=== PATIENT | female | born 1955 | race African-American/Black ===

== ENCOUNTER 2020-06-08 06:53 | Outpatient (NON) | payer OTHER, SELFPAY ==
[2020-06-10 13:28] LABS: SARS-CoV-2 RNA PCR Negative
== END 2020-06-08 06:54 ==
LOC: ANHCOVIDDT 06:57
PROVIDERS: PCP Family Medicine; Visit Provider Nurse Practitioner Family
DX: Z20.828 Contact with and (suspected) exposure to other viral communicable diseases (principal)
CPT/HCPCS: 87635; C9803; U0003

== ENCOUNTER → 2020-09-16 06:55 | Outpatient (CLI) | payer MEDICARE, OTHER, SELFPAY ==
[2020-09-16 20:43] LABS: SARS-CoV-2 RNA PCR Negative
== END ==
PROVIDERS: PCP Family Medicine; Visit Provider Nurse Practitioner Family
DX: Z20.822 Contact with and (suspected) exposure to COVID-19 (principal); R68.89 Other general symptoms and signs
CPT/HCPCS: C9803; U0003; U0005

== ENCOUNTER 2021-02-26 16:20 | Inpatient (IN) | payer MEDICARE, SELFPAY ==
[2021-02-26] VITALS (13 sets, daily range): BP systolic 158–217; BP diastolic 82–98; PULSE 70–99; RESP 11–20; TEMP 36.8–37.2; O2SAT 97–100; BMI 22.2
--- NOTE | ~2021-02-26 | CT_ITS ---
EXAMINATION: CT brain wo con DATE: 02/28/2021 11:19 INDICATION: Right facial droop. Hypertension. TECHNIQUE: Computed tomography (CT) of the head was performed without intravenous contrast. The dose- length product was 529.67 mGy-cm. Automated exposure control and iterative reconstruction technique w ere employed. COMPARISON: None FINDINGS: No acute intracranial hemorrhage, infarction, mass or mass effect. No ventriculomegaly or m idline shift. Basilar cisterns are patent. There is intracranial atherosclerosis. Paranasal sinuses a nd mastoids are pneumatized. Mild atrophy. There are scattered mild periventricular and subcortical w chris matter changes, most likely related to small vessel ischemic disease (microangiopathy). IMPRESSION: 1. No acute intracranial abnormality. As per stroke protocol, I called these results to emergency room, discussed with Rupali, the patient's n anthonye tech, at 02/28/2021 11:23 CDT. Reviewed, dictated and finalized at location A. IMPRESSION: 1. No acute intracranial abnormality. As per stroke protocol, I called these results to emergency room, discussed wit catarino Zapien, the patient's nurse tech, at 02/28/2021 11:23 CDT.
--- NOTE | ~2021-02-26 | MR_ITS ---
EXAMINATION: MR brain/brain stem wo con DATE: 02/28/2021 15:13 INDICATION: Stroke. Slurred speech. TECHNIQUE: Magnetic resonance imaging (MRI) of the brain and brainstem was performed without intraven ous contrast. Sequences included sagittal and axial T1-weighted FSE, axial diffusion-weighted FS EPI, axial T2*-weighted GRE, axial T2-weighted FLAIR Propeller, and axial T2-weighted Propeller. Apparent diffusion coefficient (ADC) maps were created. COMPARISON: Head CT 02/28/2021 FINDINGS: There are scattered small acute infarcts in the right frontal lobe and right frontoparietal region. There is no intracranial hemorrhage or abnormal mass lesion. There are scattered areas of no nspecific increased T2-weighted signal intensity in the cerebral white matter. The ventricles are nor mal in size. The paranasal sinuses are clear. The orbits are normal. The mastoid air cells are normal . There is a possible 5 mm aneurysm of the basilar artery. IMPRESSION: 1. Acute infarcts in the right frontal lobe and right frontoparietal region. 2. Mild nonspecific cerebral white matter disease, which likely represents chronic small vessel ische rajendra disease. 3. 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 Head CTA is recommended. Reviewed, dictated and finalized at location A. IMPRESSION: 1. Acute infarcts in the right frontal lobe and right frontoparietal region. 2. 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 3. 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 Head CTA is recommend ed.
--- NOTE | ~2021-02-26 | US_ITS ---
US renal BI 02/27/2021 09:11 Procedure: Realtime transabdominal ultrasound of the kidneys and bladder. Indication: Worsening renal function Comparison: 02/12/2019 Findings: Renal echotexture is normal bilaterally without hydronephrosis, contour deforming mass or r enal calculus. The right kidney measures 8.9 cm and left kidney measures 7.9 cm. There are bilateral renal cysts, largest measuring 1 cm in both kidneys. The kidneys are echogenic. No hydronephrosis. Bl adder within normal limits. Impression: 1: Small bilateral renal cysts measuring 1 cm or less. 2: Mildly echogenic renal cortical echotexture, consistent with chronic renal disease. Reviewed, dictated and finalized at location A. Impression: 1: Small bilateral renal cysts measuring 1 cm or less. 2: Mildly echogenic renal cortical echotexture, consistent with chronic renal d isease.
--- NOTE | ~2021-02-26 | XR_ITS ---
XR fl guide central line place 02/27/2021 11:22 Indication: Dura flow catheter placement Procedure: Single fluoroscopic image. 253 seconds of fluoroscopy. Comparison: No prior studies for comparison. Findings: There is a large bore central venous catheter partially visualized entering the thorax from the right internal jugular approach. Distal tip not visualized. Impression: 1: Status post recent internal jugular central venous catheter placement. Reviewed, dictated and finalized at location A. Impression: 1: Status post recent internal jugular central venous catheter placement.
--- NOTE | ~2021-02-26 | MR_ITS ---
EXAMINATION: MRA brain wo con DATE: 03/02/2021 13:00 INDICATION: Cerebral aneurysm. TECHNIQUE: Magnetic resonance angiography (MRA) of the brain was performed without intravenous contra st with T1-weighted SPGR by the 3D [id number] technique. Maximum intensity projection 3D-reconstr uctions were obtained. COMPARISON: Brain MRI 02/28/2021 FINDINGS: The vertebral arteries are codominant. There is no significant stenosis of basilar artery or the post erior cerebral arteries. 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 There is no significant stenosis of the intracranial inter nal carotid arteries or anterior or middle cerebral arteries. Anterior communicating artery is normal . IMPRESSION: 1. 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 Reviewed, dictated and finalized at location A. IMPRESSION: 1. 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
--- NOTE | ~2021-02-26 | XR_ITS ---
XR chest port-a-cath/central 02/27/2021 11:45 Indication: Duraflow catheter placement Procedure: AP portable chest Comparison: 02/26/2021 Findings: Right internal jugular Duraflow catheter, tip in the condyle aspect of the SVC. Cardiomegal y. Left basilar atelectasis. No focal pneumonia, pleural effusion or pneumothorax. No edema. Impression: 1: Left basilar atelectasis. 2: Cardiomegaly. Reviewed, dictated and finalized at location A. Impression: 1: Left basilar atelectasis. 2: Cardiomegaly.
--- NOTE | ~2021-02-26 | XR_ITS ---
EXAMINATION: XR chest 2V DATE: 02/26/2021 18:48 INDICATION: Weakness. Hypertension. TECHNIQUE: Frontal and lateral views of the chest were obtained. COMPARISON: Chest 2 views 09/06/2016 FINDINGS: There is no pneumonia, pleural effusion, or pneumothorax. Cardiomegaly is noted. IMPRESSION: 1. Worsened cardiomegaly. Reviewed, dictated and finalized at location A. IMPRESSION: 1. Worsened cardiomegaly.
--- NOTE | ~2021-02-26 | US_ITS ---
EXAMINATION: US carotid duplex BI DATE: 02/28/2021 15:24 INDICATION: Speech deficit. TECHNIQUE: Grayscale, color Doppler, and pulsed Doppler images of the cervical carotid arteries were obtained. The degree of vessel stenosis is placed in one of the following categories: normal, <50%, 5 0-69%, >=70% but less than near-occlusion, near-occlusion, or total occlusion. Note that percent sten osis relative to normal distal artery lumen diameter is indirectly measured from velocity measurement s as described by Juan Daniel, et al. Radiology 2003; 229:340-346. COMPARISON: None. FINDINGS: RIGHT: The right common carotid artery (CCA) peak systolic velocity (PSV) is 90 cm/s. The right internal car otid artery (ICA) PSV is 112 cm/s. The right ICA end-diastolic velocity (EDV) is 19 cm/s. The right I CA/CCA PSV ratio is 1.2. Grayscale and color Doppler images yield an estimate of <50% diameter reduct ion from plaque in the ICA. There is antegrade flow in the right vertebral artery. LEFT: The left CCA PSV is 79 cm/s. The left ICA PSV is 97 cm/s. The left ICA EDV is 17 cm/s. The left ICA/C CA PSV ratio is 1.2. Grayscale and color Doppler images yield an estimate of <50% diameter reduction from plaque in the ICA. There is antegrade flow in the left vertebral artery. IMPRESSION: 1. <50% stenosis in the right internal carotid artery. 2. <50% stenosis in the left internal carotid artery. Reviewed, dictated and finalized at location A.
[2021-02-26 17:27] LABS: Basophils Percent Auto 0.7 % (0.2-1.2); Eosinophils Absolute Auto 0.1 K/mm3 (0-0.3); Eosinophils Percent Auto 2.9 % (0-4.4); Immature Granulocyte Absolute 0.01 K/mm3 (0.00-0.031); Immature Granulocyte Percent A 0.2 % (0-0.5); Lymphocytes Percent Auto 31.2 % (18.3-44.2); Mean Corpuscular HGB Conc 31.9 g/dl (32-36); Mean Corpuscular Hemoglobin 26.6 pg (26-34); Mean Corpuscular Volume 83.3 fl (80-100); Mean Platelet Volume 9.7 fl (7.4-10.4); Monocytes Absolute Auto 0.6 K/mm3 (0.1-0.6); Monocytes Percent Auto 12.7 % (2.6-8.5); Neutrophils Absolute Auto 2.4 K/mm3 (1.3-6.7); Neutrophils Percent Auto 52.3 % (45.5-73.1); Platelet Count Result 202 k/mm3 (150-375); Red Blood Count 2.52 M/mm3 (4.2-5.4); Red Cell Distribution Width 15.4 % (11.5-14.5); White Blood Count 4.5 K/mm3 (4.5-10.0)
[2021-02-26 17:34] LABS: Hemoglobin 6.7 g/dL (12.0-15.0)
[2021-02-26 17:37] LABS: INR 0.9; Prothrombin Time 12.4 Seconds (11.1-14.7)
[2021-02-26 17:38] LABS: Partial Thromboplastin Time 27.3 SECONDS (22.3-36.8)
[2021-02-26 17:43] LABS: Anion Gap 15 mmol/L (8-16); Blood Urea Nitrogen 92 mg/dL (7-17); Calcium 8.6 mg/dL (8.4-10.2); Carbon Dioxide 19 mmol/L (22-30); Chloride 105 mmol/L (98-107); Estimated CRCL calculation 3 ml/min; Estimated Glomerular Filt Rate 4; Glucose 92 mg/dL (65-110); Potassium 4.5 mmol/L (3.4-5.0); Sodium 139 mmol/L (137-145)
[2021-02-26 17:43] LABS: Add Urine Microscopic? YES; Appearance Urine Clear (Clear); Bilirubin Urine Negative (Negative); Blood Urine Negative (Negative); Color Urine Yellow (Yellow); Glucose Urine UA Negative (Negative); Ketones Urine Negative (Negative); Leukocyte Esterase Ur Negative LEU/UL (Negative); Mucus Urine Rare /lpf; Nitrate Urine Negative (Negative); Protein Urine 2+ mg/dL (Negative); RBC Urine 0-2 /hpf (0-2); Specific Grav Ur 1.013 (1.001-1.035); Squamous Epithelial Cell Urine Rare /hpf (Few); Urobilinogen Urine Negative mg/dL (<2.0); WBC Urine 0-3 /hpf
[2021-02-26 17:44] LABS: Alanine Aminotransferase 16 U/L (4-35); Albumin Level 4.4 g/dL (3.5-5.1); Alkaline Phosphatase 64 U/L (38-126); Aspartate Amino Transferase 27 U/L (14-36); Bilirubin,Total 0.4 mg/dL (0.2-1.3)
--- NOTE | 2021-02-26 18:41 | ED.RECABL ---
HPI - Recheck/Abnormal Lab/Rx General Chief Complaint: Recheck/Abnormal Lab/Rx Stated Complaint: abnormal labs Time Seen by Provider: 02/26/21 18:28 Source: patient, RN notes reviewed and old records reviewed Mode of arrival: ambulatory Limitations: no limitations History of Present Illness HPI narrative: This is a 65 year old female with history of anemia, chronic kidney disease who presents for evaluation of generalized weakness for 2 weeks. She has no energy so she was seen by primary care physician. Outpatient labs were draw 1 week ago , and she was called today with abnormal kidney function and hemoglobin. She reports intermittent nausea and vomiting but she denies abdominal pain, melena and diarrhea. She also denies chest pain, shortness of breath or fever. She reports bilateral leg swelling that has been present for 1 week. Her creatinine was 10 on her labs from 02/20/21. She states she was seen by DR. Drew last year for evaluation of her kidneys. She states she was told her kidneys were fine. She has frequent urination and she states she is urinating large amounts. Related Data Home Medications Medication Instructions Recorded Confirmed acetaminophen 650 mg PO Q4-6H PRN 02/26/21 02/26/21 albuterol sulfate [Ventolin HFA] 2 inhalation INHALATION Q4H PRN 02/26/21 02/26/21 amlodipine 10 mg PO HS 02/26/21 02/26/21 clonidine HCl 0.1 mg PO BID 02/26/21 02/26/21 fexofenadine [Viridiana Allergy] 180 mg PO HS 02/26/21 02/26/21 levothyroxine [Euthyrox] 125 mcg PO DAILY 02/26/21 02/26/21 trazodone 50 mg PO HS PRN 02/26/21 02/26/21 triamterene-hydrochlorothiazid See Rx Instructions .ROUTE .COMPLEX 02/26/21 02/26/21 Allergies Allergy/AdvReac Type Severity Reaction Status Date / Time No Known Allergies Allergy Verified 02/26/21 22:47 Review of Systems Review of Systems: All systems reviewed & are unremarkable except as noted in HPI and below PMFSH Past Medical History Medical History (Updated 02/27/21 @ 00:33 by Steph Longoria MD) CKD (chronic kidney disease) stage 5, GFR less than 15 ml/min Essential (primary) hypertension History of intestinal obstruction 2005, 2015 Hx of gastric ulcer (~2015) Hypothyroid Suspected COVID-19 virus infection Surgical History Surgical History (Updated 05/21/20 @ 16:47 by Georgia Lagunas NP) History of cholecystectomy (~1985) History of hysterectomy (~1978) Hx of removal of ovary (~2000) Family History Family History (Updated 02/26/21 @ 23:49 by Leighann Márquez RN) Mother Family history of coronary artery disease Hypertension Father Family history of malignant neoplasm of stomach Hypertension Sibling Diabetes mellitus Hypertension Social History Social History Smoking packs per day: 0.5 Smoking cigarettes per day: 10.0 Years smoked: 41 Smoking pack-years: 20.50 Smoking status: Current every day smoker Tobacco type: cigarettes Second hand tobacco smoke exposure: Yes Alcohol intake: current Drinks per week: 1 Substance use: former Substance use type: marijuana Last use: 40 years Spiritual care concerns: Yes ([employer]) Exam Const: General: alert Nutritional Appearance: thin Orientation/consciousness: patient oriented x3 Eyes: EOM: EOMs intact bilaterally Resp: Effort & Inspection: normal respiratory effort and no retractions Auscultation: clear to auscultation bilaterally Cardio: Rate: regular rate Rhythm: regular rhythm Heart sounds: no murmurs GI: GI Palp: Yes Soft to palpation, No Tenderness to palpation present (GI) and No Guarding due to palpation present (GI) Auscultation: normal bowel sounds Other: guaic negative stool Skin: General skin exam: normal color Rashes: no rashes Neuro: General: patient oriented x3 and moves all extremities Extrem: General: edema bilateral (pedal and lower leg) Psych: Mental Status: mental stat
--- NOTE | 2021-02-26 18:44 | PC.NURSE ---
pt to X-ray at this time.
--- NOTE | 2021-02-26 18:49 | ECG_ITS ---
Measurements Intervals [place] Rate: 75 P: 59 NC: 193 QRS: -14 QRSD: 86 T: 31 QT: 405 QTc: 454 Interpretive Statements SINUS RHYTHM POSSIBLE LEFT ATRIAL ENLARGEMENT ANTEROSEPTAL INFARCT, AGE INDETERMINATE ABNORMAL ECG Electronically Signed On 02-26-2021 21:45:18 CDT by Leeroy Nolan D.O.
[2021-02-26] MEDS: amLODIPine BESYLATE 5 MG TABLET 10 MG PO (19:39)
[2021-02-26] MEDS: cloNIDine HCL 0.1 MG TABLET PO (19:39)
[2021-02-26] MEDS: SODIUM CHLORIDE 0.9% IV 250 ML 30 ML IV CONT (21:01)
[2021-02-26 21:36] LABS: Folic Acid 16.2 ng/mL (2.76->20)
[2021-02-26] MEDS: TUBING, BLOOD PLUM PUMP TUBING 1 EACH XX (21:37)
[2021-02-26 21:53] LABS: Iron 88 ug/dL (37-170)
[2021-02-26 21:59] LABS: Percent Iron Saturation 29 % (20-50)
--- NOTE | 2021-02-26 22:34 | ADMGEN ---
This patient, Madison Santos, was admitted to IMU Room 200-01 on 02/26/21 at 2233. Patient/family oriented to hospital policies and general routines including ID bracelet, bed and alarms, visiting hours, pain management, procedures, bathroom and other care routines, personal items, smoking policy, room service/diet, and visiting hours. Information on how to activate the Rapid Response Team has been discussed. Patient/Family are encouraged to report perceived risks to care and to ask questions if they do not understand what they are told or what they should do.
--- NOTE | 2021-02-26 22:53 | PM.IMHP ---
H&P: HPI History of Present Illness Date/Time: 02/26/21 22:53 Chief Complaint: Normal lab values Narrative: This is a 65-year-old female with past medical history significant for chronic kidney disease, hypertension, tobacco dependence. Patient presented to the emergency room after she was asked by her primary care physician due to abnormal lab values. She had been in to see her primary care physician due to worsening bilateral lower extremity edema and lab work was ordered a came back with a creatinine of 12 also a CBC showed a hemoglobin of 6.8. Of the time of my visit patient denied any discomfort stated that what bothers her the most was the swelling of her legs but other than that she denied any chest pain shortness of breath, PND, orthopnea, cough sputum production ,abdominal pain, nausea, vomiting, diarrhea, no fevers no rigors no chills no pain or burning with urination. Upon arrival to emergency room patient was found to be hypertension with systolic blood pressure of 200 patient states that she takes her blood pressure medications every day. Decision has been made to admit the patient for dialysis treatment. Review of Systems Review of Systems: Abnormal lab value and bilateral lower extremity swelling Constitutional: Constitutional: Denies fatigue, Denies fever(s) and Denies weakness Eyes: Eyes: Denies change in vision ENT: Denies dysphagia, Denies nasal congestion, Denies nasal discharge, Denies nasal obstruction and Denies odynophagia Cardiovascular: Cardiovascular: Denies chest pain, Denies irregular heart rhythm, Denies radiating jaw, neck or arm pain, Denies palpitations, Denies dyspnea and Denies orthopnea Respiratory: Respiratory: Denies cough and Denies dyspnea Gastrointestinal: Gastrointestinal: Denies abdominal pain, Denies diarrhea, Denies nausea and Denies vomiting Genitourinary: Genitourinary: Denies dysuria Musculoskeletal: Musculoskeletal: Reports other (Bilateral lower extremity swelling) Integumentary/Breasts: Skin/Breast: Denies rash Neurologic: Denies focal weakness and Denies Sensory deficit (Neuro) Psychiatric: Psychiatric: Denies no additional psychiatric complaints Endocrine: Endocrine: Denies no additional endocrine complaints Hematologic/Lymphatic: Hematologic/Lymphatic: Denies no additional hematologic/lymphatic complaints Allergic/Immunologic: Allergic/Immunologic: Denies no additional allergic/immunologic complaints [facility] Past Medical History Medical History (Updated 02/26/21 @ 23:08 by Flo Alberto MD) CKD (chronic kidney disease) stage 5, GFR less than 15 ml/min Essential (primary) hypertension History of intestinal obstruction 2005, 2015 Hx of gastric ulcer (~2015) Hypothyroid Suspected COVID-19 virus infection Surgical History Surgical History (Updated 05/21/20 @ 16:47 by Georgia Lagunas NP) History of cholecystectomy (~1985) History of hysterectomy (~1978) Hx of removal of ovary (~2000) Family History Family History Mother Family history of coronary artery disease Father Family history of malignant neoplasm of stomach Other Hypertension Social History Social History Smoking packs per day: 0.5 Smoking cigarettes per day: 10.0 Years smoked: 41 Smoking pack-years: 20.50 Smoking status: Current every day smoker Tobacco type: cigarettes Second hand tobacco smoke exposure: Yes Alcohol intake: current Meds Home Medications and Allergies Home Medications Medication Instructions Recorded Confirmed Type losartan 50 mg tablet 50 mg PO DAILY #90 tablet 02/19/21 02/26/21 Rx acetaminophen 650 mg PO Q4-6H PRN 02/26/21 02/26/21 History albuterol sulfate [Ventolin HFA] 2 inhalation INHALATION Q4H PRN 02/26/21 02/26/21 History amlodipine 10 mg PO HS 02/26/21 02/26/21 History clonidine HCl 0.1 mg PO BID 02/26/21 02/26/21 History
[2021-02-27] VITALS (26 sets, daily range): BP systolic 138–196; BP diastolic 70–109; PULSE 65–107; RESP 12–21; TEMP 14–37.2; O2SAT 97–100
--- NOTE | 2021-02-27 | ECHO_ITS ---
Patient Info Name: Madison Santos Age: 65 years : 1955 Gender: Female Ht: 62 in Wt: 130 lbs BSA: 1.62 m2 HR: 72 bpm BP: 188 / 76 mmHg Technical Quality: Good Exam Date: 02/27/2021 7:43 AM Exam Location: [facility] Patient Status: Inpatient Admit Date: 02/26/2021 Staff Ordering Physician: Flo Alberto MD Chief Analytics Officer: Karlene Carrillo RDCS Attending Provider: Tran Donohue PA-C Referring Physician: Dolly DIEZ; Exam Type: CA echo doppler color flow Study Info Complete two-dimensional, color flow and Doppler transthoracic echocardiogram is performed. Summary 1. Complete two-dimensional, color flow and Doppler transthoracic echocardiogram is performed. 2. Left ventricular chamber dimension is normal. 3. Ventricular septum is sigmoid shaped. No LVOT obstruction. 4. Left ventricular systolic function is normal, estimated at 60-65%. 5. There is moderately increased left ventricular wall thickness. 6. The left ventricular diastolic function is grade II diastolic dysfunction. 7. E/e' 18 is elevated. 8. Left atrial chamber dimension is moderately enlarged. 9. There is mild to moderate mitral valve regurgitation. 10. There is trace tricuspid valve regurgitation. 11. No pulmonary hypertension, estimated pulmonary arterial systolic pressure is 26 mmHg. 12. There is trace pulmonic regurgitation. 13. There is small circumferential pericardial effusion. No cardiac tamponade. Left Ventricle E/e' 18 is elevated. Ventricular septum is sigmoid shaped. No LVOT obstruction. Left ventricular chamber dimension is normal. Left ventricular systolic function is normal, estimated at 60-65%. There is moderately increased left ventricular wall thickness. The left ventricular diastolic function is grade II diastolic dysfunction. Right Ventricle Right ventricular systolic function is normal and with normal TAPSE 2.5 cm. Right ventricular chamber dimension is normal. Left Atria Left atrial chamber dimension is moderately enlarged. Right Atria Right atrial chamber dimension is normal. Aortic Valve The aortic valve is trileaflet. There is no aortic valve stenosis. There is no aortic valve regurgitation. Pulmonic Valve There is trace pulmonic regurgitation. Mitral Valve There is no mitral valve stenosis. There is mild to moderate mitral valve regurgitation. Tricuspid Valve There is trace tricuspid valve regurgitation. No pulmonary hypertension, estimated pulmonary arterial systolic pressure is 26 mmHg. Pericardium/Pleural There is small circumferential pericardial effusion. No cardiac tamponade. Inferior Vena Cava Normal inferior vena cava with >50% collapse upon inspiration consistent with normal right atrial pressure, 5 mmHg. Aorta The aortic root size at the sinus of Valsalva is normal. Left Ventricular Outflow Tract Name Value Normal LVOT 2D LVOT Diameter 2.1 cm LVOT Doppler LVOT Peak Gradient 9 mmHg LVOT Mean Gradient 4 mmHg LVOT VTI 34 cm LVOT VTI/AV VTI Ratio
[2021-02-27] MEDS: traZODone HCL 50 MG TABLET PO (01:09)
[2021-02-27] MEDS: hydrALAZINE HCL 20 MG/ML VIAL 10 MG IV PUSH (01:11)
[2021-02-27 05:26] LABS: Basophils Percent Auto 0.6 % (0.2-1.2); Eosinophils Absolute Auto 0.1 K/mm3 (0-0.3); Eosinophils Percent Auto 2.6 % (0-4.4); Hematocrit 21.7 % (37.0-47.0); Hemoglobin 7.2 g/dL (12.0-15.0); Immature Granulocyte Absolute 0.01 K/mm3 (0.00-0.031); Immature Granulocyte Percent A 0.2 % (0-0.5); Lymphocytes Absolute Auto 1.65 K/mm3 (0.9-3.2); Lymphocytes Percent Auto 32.5 % (18.3-44.2); Mean Corpuscular HGB Conc 33.2 g/dl (32-36); Mean Corpuscular Hemoglobin 27.2 pg (26-34); Mean Corpuscular Volume 81.9 fl (80-100); Mean Platelet Volume 10.4 fl (7.4-10.4); Monocytes Absolute Auto 0.5 K/mm3 (0.1-0.6); Monocytes Percent Auto 10.6 % (2.6-8.5); Neutrophils Absolute Auto 2.7 K/mm3 (1.3-6.7); Neutrophils Percent Auto 53.5 % (45.5-73.1); Platelet Count Result 189 k/mm3 (150-375); Red Blood Count 2.65 M/mm3 (4.2-5.4); Red Cell Distribution Width 14.6 % (11.5-14.5); White Blood Count 5.1 K/mm3 (4.5-10.0)
[2021-02-27 05:39] LABS: Alanine Aminotransferase 13 U/L (4-35); Albumin Level 3.6 g/dL (3.5-5.1); Alkaline Phosphatase 53 U/L (38-126); Anion Gap 11 mmol/L (8-16); Aspartate Amino Transferase 24 U/L (14-36); Bilirubin,Total 0.5 mg/dL (0.2-1.3); Blood Urea Nitrogen 97 mg/dL (7-17); Calcium 8.3 mg/dL (8.4-10.2); Carbon Dioxide 16 mmol/L (22-30); Chloride 113 mmol/L (98-107); Estimated CRCL calculation 4 ml/min; Estimated Glomerular Filt Rate 4; Glucose 87 mg/dL (65-110); Potassium 3.9 mmol/L (3.4-5.0); Sodium 140 mmol/L (137-145)
[2021-02-27] MEDS: LEVOTHYROXINE SODIUM 125 MCG TABLET PO (07:03)
[2021-02-27] MEDS: cloNIDine HCL 0.1 MG TABLET PO ×2 (08:40→17:53)
[2021-02-27] MEDS: LOSARTAN POTASSIUM 50 MG TABLET PO (08:40)
--- NOTE | 2021-02-27 08:40 | PM.IMPN ---
Progress Note: A&P Assessment and Plan (1) Acute kidney injury superimposed on chronic kidney disease: Code(s): N17.9 - Acute kidney failure, unspecified; N18.9 - Chronic kidney disease, unspecified Status: Acute Assessment and Plan: patient reports feeling fatigued and leg swelling over the last few weeks. Found with a creatinine of . she was admitted into the hospital with a consult to Nephrology and surgery to place a temporary dialysis catheter. Renal ultrasound is pending patient to go down to the OR for a temporary dialysis cath today continue monitoring renal function and electrolytes. Appreciate Nephrology's consultation and input continue monitoring. She appears to be stable at this time. (2) Erythropoietin deficiency anemia: Code(s): D63.1 - Anemia in chronic kidney disease Status: Acute Assessment and Plan: Patient found to have acute anemia and required 1 unit of blood to be transfused. Most likely due to erythropoietin deficiency anemia due to her acute end-stage renal disease and a creatinine of 12. She has no signs of acute blood loss. Iron panel, B12 and folic acid were all normal. H&H stable today at 7.2. Continue monitoring. Nephrology's input is greatly appreciated. (3) Uncontrolled hypertension: Code(s): I10 - Essential (primary) hypertension Status: Acute Assessment and Plan: Patient found have a blood pressure of 210 systolic in the emergency room on arrival. Patient seems to be on multiple medications at home, amlodipine, clonidine, losartan, and triamterene-hydrochlorothiazide but with such severe uncontrolled high blood pressure she must not be very compliant. Patient was restarted on her home medications. P.r.n. hydralazine ordered for blood pressure greater than 200 systolic. Continue monitoring. Make adjustments if not needed. Appreciate recommendations. (4) Hypothyroid: Code(s): E03.9 - Hypothyroidism, unspecified Status: Chronic Assessment and Plan: TSH was high on recent labs with a normal T4. Will have her follow up with PCP. Continue Levothyroxine. Time Spent With Patient Time with patient: 25 - 35 minutes Subjective Date/time seen: 02/27/21 08:40 Interval history: Date of service 02/27/21: The patient reports feeling well other than being tired and some leg swelling for the last few weeks which is why she went to see her doctor. Reports frequent urination lately, no decrease in urination. She denies any chest pain, SOB, cough, fever ,chills , nausea, vomiting, abd pain, calf pain or any other symptoms at this time. Review of Systems Review of Systems: All systems reviewed & are unremarkable except as noted in HPI and below Exam Narrative: General: 65-year-old woman, standing up from using the commode and getting back into bed. Appears comfortable. In no acute distress. Skin: No jaundice or cyanosis. Good skin turgor. Neck: Full range of motion. Supple. Respiratory: Lungs are clear to auscultation bilaterally. No wheezing, rales or rhonchi. No bony chest wall tenderness. Cardiovascular: The heart has a regular rate and rhythm without murmur. Lower extremities: 2+ lower extremity edema bilaterally up 1/2 legs. Distal pulses are easily palpated. No calf tenderness to palpation. Gastrointestinal: The abdomen is soft, nontender and nondistended with active bowel sounds. Psychiatric: Lucid and oriented. Memory intact. Neurologic: No focal deficits. Speech is clear. No facial drooping. Objective Data Vital Signs Vital Signs: Vital Signs - 24 hr 02/26/21 16:46 02/26/21 18:58 02/26/21 19:30 Temperature 98.5 F Pulse Rate 81 79 87 Respiratory Rate 20 12 16 Blood Pressure 213/93 H 216/98 H 216/98 H Pulse Oximetry 100 97
--- NOTE | 2021-02-27 09:11 | P.HPUP_ITS ---
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 We will go ahead and urgently place a tunneled central venous catheter under anesthesia and under fluoroscopy today. History and Physical has been reviewed, including an updated exam of the patient. There are NO changes in the patient's condition. Risks, benefits, and alternatives have been discussed and questions answered. Patient agrees to proceed with procedure.
[2021-02-27] MEDS: ACETAMINOPHEN 325 MG TABLET 650 MG PO (09:28)
--- NOTE | 2021-02-27 09:45 | WPDANESEPP ---
Anes - Eval Pre Procedure Procedure: Operation Date: 02/27/21 10:00 Proposed Procedures p Insertion Duraflow Permacath Dialysis - Kwame Barrow MD Date/Time: 02/27/21 09:45 Pre Op Diagnosis: Acute on Chronic Renal Failure,Anemia,Hypertensive Patient Data Age: 65 Gender: F Height: 1.57 m Weight: 55.9 kg Last Vital Signs Temp 36.8 C 02/27/21 08:00 Pulse 76 02/27/21 08:00 Resp 20 02/27/21 08:00 BP 176/109 H 02/27/21 08:00 Pulse Ox 100 02/27/21 08:00 Allergies Allergy/AdvReac Type Severity Reaction Status Date / Time No Known Allergies Allergy Verified 02/26/21 22:47 Home Medications Medication Instructions Recorded Confirmed Type losartan 50 mg tablet 50 mg PO DAILY #90 tablet 02/19/21 02/26/21 Rx acetaminophen 650 mg PO Q4-6H PRN 02/26/21 02/26/21 History albuterol sulfate [Ventolin HFA] 2 inhalation INHALATION Q4H PRN 02/26/21 02/26/21 History amlodipine 10 mg PO HS 02/26/21 02/26/21 History clonidine HCl 0.1 mg PO BID 02/26/21 02/26/21 History fexofenadine [Viridiana Allergy] 180 mg PO HS 02/26/21 02/26/21 History levothyroxine [Euthyrox] 125 mcg PO DAILY 02/26/21 02/26/21 History trazodone 50 mg PO HS PRN 02/26/21 02/26/21 History triamterene-hydrochlorothiazid See Rx Instructions .ROUTE .COMPLEX 02/26/21 02/26/21 History Laboratory Tests 02/26/21 02/26/21 02/26/21 17:15 17:15 17:15 WBC 4.5 K/mm3 K/mm3 (4.5-10.0) RBC 2.52 M/mm3 L M/mm3 (4.2-5.4) Hgb 6.7 g/dL L* g/dL (12.0-15.0) Hct 21.0 % L % (37.0-47.0) MCV 83.3 fl fl (80-100) MCH 26.6 pg pg (26-34) MCHC 31.9 g/dl L g/dl (32-36) RDW 15.4 % H % (11.5-14.5) Plt Count 202 k/mm3 k/mm3 (150-375) MPV 9.7 fl fl (7.4-10.4) Immature Gran % (Auto) 0.2 % % (0-0.5) Neut % (Auto) 52.3 % % (45.5-73.1) Lymph % (Auto) 31.2 % % (18.3-44.2) [place] % (Auto) 12.7 % H % (2.6-8.5) Eos % (Auto) 2.9 % % (0-4.4) Baso % (Auto) 0.7 % % (0.2-1.2) Lymph # (Auto) 1.40 K/mm3 K/mm3 (0.9-3.2) [place] # (Auto) 0.6 K/mm3 K/mm3 (0.1-0.6) Eos # (Auto) 0.1 K/mm3 K/mm3 (0-0.3) Baso # (Auto) 0.0 K/mm3 K/mm3 (0.0-0.1) Abs Immat Gran (auto) 0.01 K/mm3 K/mm3 (0.00-0.031) Absolute Neuts (auto) 2.4 K/mm3 K/mm3 (1.3-6.7) Absolute Nucleated RBC 0.0 K/mm3 K/mm3 (0.0-0.012) Nucleated RBC % 0.0 % % (0.0-0.2) PT INR APTT Sodium 139 mmol/L mmol/L (137-145) Potassium 4.5 mmol/L mmol/L (3.4-5.0) Chloride 105 mmol/L mmol/L (98-107) Carbon Dioxide 19 mmol/L L mmol/L (22-30) Anion Gap 15 mmol/L mmol/L (8-16) BUN 92 mg/dL H mg/dL (7-17) Creatinine 12.00 mg/dL H mg/dL (0.7-1.0) Estim Creat Clear Calc 3 ml/min ml/min Estimated GFR 4 L (59 - ) Glucose 92 mg/dL mg/dL (65-110) Calcium 8.6 mg/dL mg/dL (8.4-10.2) Iron TIBC % Saturation Ferritin Total Bilirubin Direct Bilirubin AST ALT Alkaline Phosphatase Total Protein Albumin Vitamin B12 636.0 pg/mL pg/mL (239-931) Folate 16.2 ng/mL ng/mL (2.76->20) Urine Color Urine Appearance Urine pH Ur Specific [place] Urine Protein Urine Glucose (UA) Urine Ketones Ur Blood (Man) Urine Nitrate Urine Bilirubin Urine Urobilinogen Leukocyte Esterase Rfl Urine RBC Urine WBC Ur Squamous Epith Cells Urine Mucus Blood Type Antibody Screen Cr
[2021-02-27] MEDS: ceFAZolin SODIUM 1 GM VIAL 2 GM IV PUSH (10:12)
[2021-02-27] MEDS: LIDO 1%/EPINEPHRINE/PF 1:200,000 30 ML VIAL XX (10:25)
[2021-02-27] MEDS: HEPARIN SODIUM, PORCINE 10,000 UNITS/10 ML VIAL 10000 UNITS IV PUSH (10:27)
[2021-02-27] MEDS: LACTATED RINGERS 1,000 ML 30 ML IV CONT (11:30)
--- NOTE | 2021-02-27 11:32 | P.OP_ITS ---
Procedure Note - Detailed Date of Procedure 02/27/21 Pre-op Diagnosis Acute on chronic renal failure, inadequate venous access Post-op Diagnosis same Procedure Performed placement right internal jugular tunneled Dura Flow central venous catheter under fluoroscopy Surgeon Kwame Barrow MD Sprinkling System Installer Mo Ramos [facility] Anesthesia general and local ( 0.5% Marcaine with epinephrine) Indications patient came into the emergency room with severe hypertension and creatinine over 10. Urgent dialysis is planned. She is taken to surgery now for placement of a tunneled central venous catheter for this purpose Findings catheter tip in the distal SVC right atrial junction Description of Procedure patient was taken to surgery and general anesthesia was introduced per LMA. The right neck and right upper chest were prepped and draped. Local anesthesia was infiltrated in the right upper neck just lateral to the carotid pulse. On the 2nd puncture the internal jugular vein was cannulated and a guidewire was able to be passed into the right ventricle. a 32 cm Dura Flow catheter was chosen. Using C-arm fluoroscopy, the path of the catheter was mapped out on the right neck. The proposed tunneling counter incisions were marked on the neck. Local was infiltrated into the each of these areas. Incisions were then made for each counter incision as well as at the exit site of the guidewire. The Dura Flow catheter was then tunneled from just below the right clavicle and up through each of the counter incisions, finally exiting at the same location as the guidewire. I then passed serial dilators over the guidewire. The largest dilator and sleeve were then passed over the guidewire and into the expected position by C-arm fluoroscopy. When I removed the guidewire and the introducer, arterial blood returned. I removed the sleeve and held pressure for 10 minutes over the wound. This stopped the bleeding with no significant right neck hematoma. we watch the area for a few minutes and no sign of recurrent hematoma or expanding hematoma ensued. I then placed the patient in steep Trendelenburg. Farther down the neck I was then able to cannulate the right internal jugular vein again. The guidewire was again positioned and produced ectopy when in the right ventricle. An incision was made here and I tunneled the catheter down to this incision. I then used serial dilators again and finally pass the sleeve and introducer down the guidewire. Venous blood returned. I passed the Dura Flow catheter down the sleeve and into the expected location. I checked its position with the C-arm fluoroscopy. It looked good. I removed the sleeve. I then checked the catheters position both with a straight on fluoroscopy view as well as an angled view. There was no kinking in the path of the guidewire. Both ports aspirated blood and flushed easily with heparin. Final flush was administered. I then closed each of the counter incisions with subcuticular interrupted 3 0 Vicryl suture. The catheter was sutured in position with 3 0 nylon. A sterile transparent dressing was placed over the exit site of the guidewire. The patient was transferred to recovery in good condition. Sponge and needle counts were correct x2. Estimated Blood Loss 50 Urine Output 500 Drains No Packing No Pathology none sent Complications No immediate complications Condition stable Disposition PACU
--- NOTE | 2021-02-27 12:01 | PM.CNNEP ---
Assessment and Plan Assessment and plan (1) Acute kidney injury superimposed on chronic kidney disease: Code(s): N17.9 - Acute kidney failure, unspecified; N18.9 - Chronic kidney disease, unspecified Status: Acute Assessment and Plan: Madison has severely high BUN and creatinine. I am surprised she is not more symptomatic. It seems like her only symptoms are those of volume overload. Her ultrasound shows small echogenic kidneys. She has had chronic kidney disease for several years. Her blood pressure is far out of control. I think most likely she has end-stage renal disease from hypertension. Will look for acute causes as well but so far I see none. I talked with the patient length about dialysis. Understands that she needs this treatment. We discussed the process risks benefits and alternatives. The patient agrees to proceed. I tried calling her but I was unable to get through to him. (2) Uncontrolled hypertension: Code(s): I10 - Essential (primary) hypertension Status: Acute Assessment and Plan: Patient's blood pressure was very high in the emergency room yesterday. It is much better today at 1:45 a.m.. (3) Hx of gastric ulcer: Onset Date: ~2015 Code(s): Z87.19 - Personal history of other diseases of the digestive system Status: Inactive Assessment and Plan: The patient has history of gastric ulcer. (4) Erythropoietin deficiency anemia: Code(s): D63.1 - Anemia in chronic kidney disease Status: Acute Assessment and Plan: The patient's hemoglobin is low. Will get iron levels B12 folate and stool guaiacs as well. Will begin Epogen History of Present Illness Reason for Consult Consult date: 02/27/21 Chief Complaint Chief complaint: Acute on Chronic Renal Failure,Anemia,Hypertensive History of Present Illness Narrative: Madison is a very pleasant 65-year-old lady who has multiple medical problems including chronic kidney disease, hypertension, hypothyroidism, tobacco dependence, peptic ulcer disease, The patient was seen in my office back in 2019. At that point she did have an elevated creatinine with hypertension. Never followed up. The patient says that she has been following her blood pressure at home and generally runs about 160-[address] to while it comes down at times. Patient says that she has been progressively more swollen over the last few weeks. She went to see her primary care physician who pj some labs and her creatinine was 10 so she was sent over to the emergency room. Upon arrival to the ER last evening her blood pressure was very high. She had not taken her blood pressure medications yesterday. They gave her home medications plus some clonidine and her blood pressure came down some. This morning Dr. Barrow saw her to place a dialysis catheter. The patient feels okay right now. Her catheter was placed. Review of Systems Constitutional: Constitutional: Reports no additional constitutional complaints Eyes: Eyes: Reports no additional eye complaints ENT: Reports system reviewed and no additional complaints, except as documented Cardiovascular: Cardiovascular: Reports no additional cardiovascular complaints Respiratory: Respiratory: Reports no additional respiratory complaints Gastrointestinal: Gastrointestinal: Reports no additional gastrointestinal complaints Genitourinary: Genitourinary: Reports no additional female genitourinary complaints Musculoskeletal: Musculoskeletal: Reports no additional musculoskeletal complaints Integumentary/Breasts: Skin/Breast: Reports system reviewed and no additional complaints, except as docu Neurologic: Reports system reviewed and no additional complaints, except as documented Psychiatric: Psychiatric: Reports no additional psychiatric complaints Endocrine: Endocrine: Reports no additional endocrine complaints PMFSH Past Medical History Me
--- NOTE | 2021-02-27 12:08 | SUR.PHASEI ---
1130: I TOOK KAYLA'S DENTURES AND JEWELRY UP TO IMU IN CUPS WITH HER PT STICKER AND GAVE THEM TO THE NURSE AT THE DESK. THIS WAS DONE AFTER PT WAS TAKEN TO THE OR. PRIOR TO ARRIVING IN PACU.
[2021-02-27] MEDS: HYDROcodone/acetaminophen (*CRX) 5-325 MG TABLET 1 TAB PO ×2 (13:39→18:05)
[2021-02-27] MEDS: ONDANSETRON INJ 4 MG/2 ML VIAL IV PUSH ×3 (13:49→23:42)
[2021-02-27] MEDS: MORPHINE SULFATE (*CRX) 2 MG/ML INJ IV PUSH ×2 (13:59→19:00)
[2021-02-27 15:28] LABS: Hematocrit 21.3 % (37.0-47.0); Mean Corpuscular HGB Conc 31.9 g/dl (32-36); Mean Corpuscular Hemoglobin 26.7 pg (26-34); Mean Corpuscular Volume 83.5 fl (80-100); Mean Platelet Volume 9.7 fl (7.4-10.4); Platelet Count Result 204 k/mm3 (150-375); Red Blood Count 2.55 M/mm3 (4.2-5.4); Red Cell Distribution Width 15.2 % (11.5-14.5); White Blood Count 8.5 K/mm3 (4.5-10.0)
[2021-02-27 15:38] LABS: Hemoglobin 6.8 g/dL (12.0-15.0)
[2021-02-27] MEDS: EPOETIN ALFA-EPBX 10,000 UNITS/ML VIAL 10000 UNITS IV PUSH (15:50)
[2021-02-27 16:07] LABS: Hepatitis B Surface Antigen Negative (Negative)
[2021-02-27 16:24] LABS: Hepatitis B Surface Anti Res Negative
[2021-02-27 16:25] LABS: Hepatitis B Surface Anti Res Negative
[2021-02-27 16:28] LABS: Hepatitis C Virus Antibody Reactive (Negative)
--- NOTE | 2021-02-27 17:54 | PC.NURSE ---
This patient, Madison Santos, was transferred to [ [id number] ] on 02/27/21 at 1755. Personal belongings sent with patient. Report given to [ rosmery croft ]. Appropriate documentation sent with patient.
[2021-02-27 19:26] LABS: Hematocrit 26.7 % (37.0-47.0)
[2021-02-27] MEDS: amLODIPine BESYLATE 5 MG TABLET 10 MG PO (20:01)
[2021-02-27] MEDS: LORATADINE 10 MG TABLET PO (20:02)
[2021-02-28] VITALS (13 sets, daily range): BP systolic 138–205; BP diastolic 72–90; PULSE 82–91; RESP 14–21; TEMP 36.3–37.4; O2SAT 100
[2021-02-28] MEDS: hydrALAZINE HCL 20 MG/ML VIAL 10 MG IV PUSH ×3 (02:41→17:30)
[2021-02-28] MEDS: MORPHINE SULFATE (*CRX) 2 MG/ML INJ IV PUSH (05:38)
[2021-02-28] MEDS: ONDANSETRON INJ 4 MG/2 ML VIAL IV PUSH ×3 (05:38→13:36)
[2021-02-28] MEDS: LEVOTHYROXINE SODIUM 125 MCG TABLET PO (05:38)
[2021-02-28 06:23] LABS: Albumin Level 4.1 g/dL (3.5-5.1); Anion Gap 11 mmol/L (8-16); Blood Urea Nitrogen 55 mg/dL (7-17); Calcium 8.6 mg/dL (8.4-10.2); Carbon Dioxide 21 mmol/L (22-30); Chloride 109 mmol/L (98-107); Estimated CRCL calculation 5 ml/min; Estimated Glomerular Filt Rate 6; Glucose 118 mg/dL (65-110); Phosphorus 4.9 mg/dL (2.5-4.5); Potassium 3.6 mmol/L (3.4-5.0); Sodium 141 mmol/L (137-145)
--- NOTE | 2021-02-28 08:58 | WPDANESPN ---
Anes - Prog Note Post-Op Date/Time: 02/28/21 08:58 Cardiovascular status: normal Respiratory status: normal Airway patency: baseline Mental status: baseline Vital Signs: Last Vital Signs Temp 37.2 C 02/28/21 04:00 Pulse 86 02/28/21 04:00 Resp 21 H 02/28/21 04:00 BP 178/82 H 02/28/21 04:00 Pulse Ox 100 02/28/21 04:00 Pain Score (VAS): 3/10 I/O: Intake & Output 02/27/21 02/28/21 02/28/21 23:59 07:59 15:59 Intake Total 590 250 Output Total 2400 450 Balance -1810 -200 Laboratory Tests 02/27/21 19:04 02/28/21 05:51 02/26/21 02/27/21 02/27/21 18:53 14:13 14:13 WBC RBC Hgb Hct MCV MCH MCHC RDW Plt Count MPV Sodium Potassium Chloride Carbon Dioxide Anion Gap BUN Creatinine Estim Creat Clear Calc Estimated GFR Glucose Calcium Phosphorus Albumin Hep Bs Antigen Negative Hep Bs Antibody Negative Negative Hep B Core Total Ab Hepatitis C Ab Screen Reactive HCV RNA (PCR) IUs/ml HCV RNA PCR log IUs/ml Blood Type O Positive Antibody Screen Negative Crossmatch See Detail 02/27/21 02/27/21 02/27/21 14:13 14:13 14:13 WBC RBC Hgb Hct MCV MCH MCHC RDW Plt Count MPV Sodium Potassium Chloride Carbon Dioxide Anion Gap BUN Creatinine Estim Creat Clear Calc Estimated GFR Glucose Calcium Phosphorus Albumin Hep Bs Antigen Cancelled Hep Bs Antibody Hep B Core Total Ab Pending Hepatitis C Ab Screen HCV RNA (PCR) IUs/ml Pending HCV RNA PCR log IUs/ml Pending Blood Type Antibody Screen Crossmatch 02/27/21 02/27/21 02/28/21 15:22 19:04 05:51 WBC 8.5 RBC 2.55 L Hgb 6.8 L* 9.0 L Hct 21.3 L 26.7 L MCV 83.5 MCH 26.7 MCHC 31.9 L RDW 15.2 H Plt Count 204 MPV 9.7 Sodium 141 Potassium 3.6 Chloride 109 H Carbon Dioxide 21 L Anion Gap 11 BUN 55 H D Creatinine 7.80 H Estim Creat Clear Calc 5 Estimated GFR 6 L Glucose 118 H Calcium 8.6 Phosphorus 4.9 H Albumin 4.1 Hep Bs Antigen Hep Bs Antibody Hep B Core Total Ab Hepatitis C Ab Screen HCV RNA (PCR) IUs/ml HCV RNA PCR log IUs/ml Blood Type Antibody Screen Crossmatch Post-procedural complaints: none Patient Feedback: Patient satisfied with anesthetic care.
[2021-02-28] MEDS: cloNIDine HCL 0.1 MG TABLET PO ×2 (09:11→17:29)
[2021-02-28] MEDS: LOSARTAN POTASSIUM 50 MG TABLET PO ×2 (09:11→12:30)
[2021-02-28] MEDS: TRIAMTERENE 37.5 MG/HCTZ 25 MG (MAXZIDE) TABLET 1 TAB BY MOUTH (09:53)
--- NOTE | 2021-02-28 11:06 | PM.IMPN ---
Progress Note: A&P Assessment and Plan (1) Stroke-like symptoms: Code(s): R29.90 - Unspecified symptoms and signs involving the nervous system Status: Acute Assessment and Plan: I presented to see the patient and could tell she had slurred speech that I did not notice yesterday, along with facial droop. She was complaining of a headache and the aid at bedside told me her manual blood pressure was 220 systolic. Further evaluation concerning for stroke. Stat CT Brain was obtained She was given IV Hydralazine for her hypertension Continue monitoring for further evaluation and results. (2) Acute kidney injury superimposed on chronic kidney disease: Code(s): N17.9 - Acute kidney failure, unspecified; N18.9 - Chronic kidney disease, unspecified Status: Acute Assessment and Plan: Patient reports feeling fatigued and leg swelling over the last few weeks. Found with a creatinine of . she was admitted into the hospital with a consult to Nephrology and surgery to place a temporary dialysis catheter. Renal ultrasound showed Small bilateral renal cysts measuring 1 cm or less. Mildly echogenic renal cortical echotexture, consistent with chronic renal disease. Pt had temporary dialysis cath placed 02/27/21 and went for her first dialysis afterwards. She reports feeling better today other than headache. continue monitoring renal function and electrolytes. Appreciate Nephrology's consultation and input continue monitoring. She appears to be stable at this time. (3) Erythropoietin deficiency anemia: Code(s): D63.1 - Anemia in chronic kidney disease Status: Acute Assessment and Plan: Patient found to have acute anemia and required 1 unit of blood to be transfused. Most likely due to erythropoietin deficiency anemia due to her acute end-stage renal disease and a creatinine of 12. She has no signs of acute blood loss. Iron panel, B12 and folic acid were all normal. H&H decreased to 6.8 yesterday afternoon. She was given 1 more Unit with improvement of Hgb to 9.0 today. Continue monitoring. Nephrology's input is greatly appreciated. (4) Uncontrolled hypertension: Code(s): I10 - Essential (primary) hypertension Status: Acute Assessment and Plan: Patient found have a blood pressure of 210 systolic in the emergency room on arrival. Patient seems to be on multiple medications at home, amlodipine, clonidine, losartan, and triamterene-hydrochlorothiazide but with such severe uncontrolled high blood pressure she must not be very compliant. Patient was restarted on her home medications. BP this morning was 180 systolic, she was given home medicatoins this morning about 2 hours ago and manual BP 220 and now having stroke like symptoms. Ordered IV Hydralazine 10 mg to be given. P.r.n. hydralazine ordered for blood pressure greater than 200 systolic. Continue monitoring. Make adjustments if not needed. Appreciate recommendations. (5) Hypothyroid: Code(s): E03.9 - Hypothyroidism, unspecified Status: Chronic Assessment and Plan: TSH was high on recent labs with a normal T4. Will have her follow up with PCP. Continue Levothyroxine. Time Spent With Patient Time with patient: 25 - 35 minutes Subjective Date/time seen: 02/28/21 11:07 Interval history: Date of service 02/28/21: The patient reports a headache and states her blood pressure has never been this elevated. She denies any focal weakness, facial droop, slurred speech, numbness, tingling, vision changes or other issues other than headache.Continues to have frequent urination lately, no decrease in urination. She denies any chest pain, SOB, cough
--- NOTE | 2021-02-28 11:26 | PM.PNGS ---
Progress Note: A&P Assessment and Plan (1) Acute kidney injury superimposed on chronic kidney disease: Code(s): N17.9 - Acute kidney failure, unspecified; N18.9 - Chronic kidney disease, unspecified Status: Acute Assessment and Plan: Persistent nausea. Hopefully this will resolve with further dialysis and correction of her uremia. (2) Encounter for insertion of venous access port: Code(s): Z45.2 - Encounter for adjustment and management of vascular access device Status: Acute Assessment and Plan: mild hematoma right neck with no carotid bruits. Hospitalist reported some signs of slurred speech and facial droop. I did not see these when I saw the patient today. CT scan of the head was negative. Tunnel Dura Flow catheter in good position and working well. Will continue to follow as there was a carotid puncture during the procedure. If any question, consider carotid duplex scan ultrasound tomorrow. (3) Uncontrolled hypertension: Code(s): I10 - Essential (primary) hypertension Status: Acute Assessment and Plan: Blood pressure remains quite high approximately 200 systolic over 70 to 80s diastolic. Subjective Subjective Date/Time Seen: 02/28/21 11:26 Post Op day: 1 Patient reports: pain is less ( Neck pain less), nausea and afebrile Interval history: complains of a headache. Blood pressure still very elevated. Also complaining of nausea which has been persistent. Review of Systems Review of Systems: All systems reviewed & are unremarkable except as noted in HPI and below Constitutional: Constitutional: Reports as per HPI, Reports headache(s) and Reports poor appetite Cardiovascular: Cardiovascular: Denies chest pain and Denies dyspnea Neurologic: Denies confusion, Denies dizziness, Reports headache(s), Reports focal weakness and Denies loss of vision Comments: Hospitalist noticed facial droop and some slurred speech. Exam Neck: Neck: other ( mild right neck swelling and tenderness, incisions healing well) Carotids: normal carotid upstroke, no bruits and other ( Small hematoma, tenderness) Other: right IJ catheter worked well for dialysis yesterday. Neuro: General: patient oriented x3, no focal motor deficits, CN's II-XI intact bilaterally, No confusion and other ( No slurred speech or facial droop noted when I saw the patient this morn.) Cranial nerves: Yes CN's II-XII intact bilaterally, Yes Normal facial strength present and Yes Midline tongue present Cognition (Neuro): normal cognition Speech: normal speech Motor exam (neuro): Motor abnormalities not present Objective Data Vital Signs Vital Signs: Vital Signs - 24 hr 02/27/21 11:30 02/27/21 11:45 02/27/21 12:04 Temperature 36.7 C Pulse Rate 107 H 84 80 Respiratory Rate 20 16 12 Blood Pressure 171/81 H 151/85 H 145/78 H Pulse Oximetry 100 100 100 02/27/21 12:15 02/27/21 13:58 02/27/21 14:05 Temperature Pulse Rate 78 90 76 Respiratory Rate 14 16 Blood Pressure 138/70 180/87 H Pulse Oximetry 97 100 02/27/21 14:07 02/27/21 15:20 02/27/21 15:30 Temperature 37.1 C Pulse Rate 93 100 Respiratory Rate 21 H Blood Pressure 187/70 H 194/98 H Pulse Oximetry 100 02/27/21 16:00 02/27/21 16:15 02/27/21 16:18 Temperature 37.1 C Pulse Rate 84 92 92 Respiratory Rate 18 Blood Pressure 179/93 H 179/93 H Pulse Oximetry 02/27/21 17:00 02/27/21 17:31 02/27/21 17:40 Temperature 37.2 C Pulse Rate 87 94 102 H Respiratory Rate 21 H Blood Pressure 190/102 H 189/104 H 196/98 H Pulse Oximetry 02/27/21 20:00 02/27/21 22:00 02/28/21 00:00 Temperature 37.1 C 37.4 C Pulse Rate 90 86 88 Respiratory Rate 21 H 21 H Blood Pressure 189/87 H 199/78 H Pulse Oximetry 100 100 02/28/21 04:00 02/28/21 09:04 Temperature 37.2 C 36.3 C L Pulse Rate 86 91 Respiratory Rate 21 H 14 Blood Pressure 178/82 H 205/73 H Pulse Oximetry 100 100 Intake/Output Intake/O
[2021-02-28] MEDS: ATORVASTATIN 40 MG TABLET PO (12:31)
[2021-02-28] MEDS: METOCLOPRAMIDE HCL 5 MG TABLET PO ×3 (14:09→20:31)
--- NOTE | 2021-02-28 15:56 | PM.PNNEP ---
Progress Note: A&P Assessment and Plan (1) Acute kidney injury superimposed on chronic kidney disease: Code(s): N17.9 - Acute kidney failure, unspecified; N18.9 - Chronic kidney disease, unspecified Status: Acute Assessment and Plan: Madison has severely high BUN and creatinine. Ultrasound showed small echogenic kidneys. She had dialysis yesterday and did well. She feels better today. Will continue dialysis. She will have another session tomorrow. (2) Uncontrolled hypertension: Code(s): I10 - Essential (primary) hypertension Status: Acute Assessment and Plan: Patient's blood pressure Has still been high. she is currently on amlodipine, clonidine, and losartan. The latter had a dose increase this morning. Will give extra clonidine to get the blood pressure down to around 160 to 180. the patient does make some urine. I will give her Lasix to try to effect a diuresis as well. Will change her amlodipine to nifedipine. The latter will start in the morning. Will try to emphasize long-acting blood pressure medicine to keep the blood pressure curve relatively smooth. Will shoot for a goal systolic of 140-160. Allow some permissive hypertension because of the acute infarcts. (3) Hx of gastric ulcer: Onset Date: ~2015 Code(s): Z87.19 - Personal history of other diseases of the digestive system Status: Inactive Assessment and Plan: The patient has history of gastric ulcer. (4) Erythropoietin deficiency anemia: Code(s): D63.1 - Anemia in chronic kidney disease Status: Acute Assessment and Plan: The patient's hemoglobin is low. Will get iron levels B12 folate and stool guaiacs as well. Hold off on the Epogen because of the blood pressure (5) Facial edema: Code(s): R60.0 - Localized edema Status: Acute Assessment and Plan: the patient has edema of the right face. She has the PermCath in the same side. She has a small lady on so it is possible that the PermCath uses up quite a bit of the lumen of the internal jugular vein. So she might have some swelling on that side of the head. Hopefully the lumen will expand or she will drain to the other IJ to help the facial swelling. In the meantime she will keep the head of her bed elevated. If this progresses we may have to move the catheter to the leg. Her muscles of facial expression seem to be pretty good. I do not think this is a stroke. She did have an MRI just in case and it showed acute infarcts in the right frontal lobe and right frontoparietal region. This would of course be reflected in weakness on the left side not on the right so it does not look like these are symptomatic. Discussed with ELIAS Donohue. Subjective Date/time seen: 02/28/21 15:56 Interval history: Patient is feeling better today. She did have a headache this morning but it is gone now. She has some swelling on the right side of her face. No double vision no weakness on the right side currently. Review of Systems Cardiovascular: Cardiovascular: Reports no additional cardiovascular complaints Respiratory: Respiratory: Reports no additional respiratory complaints Gastrointestinal: Gastrointestinal: Reports no additional gastrointestinal complaints Genitourinary: Genitourinary: Reports no additional female genitourinary complaints Exam Narrative: WDWN in NAD skin no rash head ncat lungs clear cor reg no rub abd BS+ nontender and soft ext no edema. Neuro alert and oriented x3. Motor is 5/5 all 4 limbs. Cranial nerves 2 through 12 look intact. Cerebellar normal rapid alternating movements. Face has some swelling on the right side. Objective Data Vital Signs Vital Signs: Vital Signs - 24 hr 02/27/21 16:00 02/27/21 16:15 02/27/21 16:18 Temperature 37.1 C Pulse Rate 84 92 92 Respiratory Rate 18 Blood Pressure 179/93 H 179/93 H Pulse Oximetry
[2021-02-28 17:15] LABS: Potassium 3.6 mmol/L (3.4-5.0)
[2021-02-28] MEDS: FUROSEMIDE 80 MG TABLET PO (17:57)
[2021-02-28] MEDS: LORATADINE 10 MG TABLET PO (20:31)
--- NOTE | 2021-02-28 22:17 | PC.NURSE ---
Call placed to Dr. Drew at 2200 for update on b/p.
[2021-03-01] VITALS (21 sets, daily range): BP systolic 134–190; BP diastolic 68–94; PULSE 75–103; RESP 14–18; TEMP 36–37.2; O2SAT 98–100
[2021-03-01] MEDS: ACETAMINOPHEN 325 MG TABLET 650 MG PO ×2 (00:05→12:04)
[2021-03-01] MEDS: traZODone HCL 50 MG TABLET PO ×2 (00:46→20:50)
[2021-03-01 05:59] LABS: Basophils Percent Auto 0.5 % (0.2-1.2); Eosinophils Absolute Auto 0.1 K/mm3 (0-0.3); Eosinophils Percent Auto 0.7 % (0-4.4); Hematocrit 23.3 % (37.0-47.0); Hemoglobin 7.7 g/dL (12.0-15.0); Immature Granulocyte Absolute 0.03 K/mm3 (0.00-0.031); Immature Granulocyte Percent A 0.4 % (0-0.5); Lymphocytes Absolute Auto 1.75 K/mm3 (0.9-3.2); Lymphocytes Percent Auto 20.9 % (18.3-44.2); Mean Corpuscular Hemoglobin 27.7 pg (26-34); Mean Corpuscular Volume 83.8 fl (80-100); Mean Platelet Volume 10.5 fl (7.4-10.4); Monocytes Percent Auto 12.4 % (2.6-8.5); Neutrophils Absolute Auto 5.4 K/mm3 (1.3-6.7); Neutrophils Percent Auto 65.1 % (45.5-73.1); Platelet Count Result 185 k/mm3 (150-375); Red Blood Count 2.78 M/mm3 (4.2-5.4); Red Cell Distribution Width 15.1 % (11.5-14.5); White Blood Count 8.4 K/mm3 (4.5-10.0)
[2021-03-01 06:08] LABS: Albumin Level 3.5 g/dL (3.5-5.1); Anion Gap 11 mmol/L (8-16); Blood Urea Nitrogen 63 mg/dL (7-17); Calcium 8.9 mg/dL (8.4-10.2); Carbon Dioxide 20 mmol/L (22-30); Chloride 110 mmol/L (98-107); Estimated CRCL calculation 5 ml/min; Estimated Glomerular Filt Rate 6; Glucose 86 mg/dL (65-110); Potassium 3.7 mmol/L (3.4-5.0); Sodium 141 mmol/L (137-145)
[2021-03-01] MEDS: METOCLOPRAMIDE HCL 5 MG TABLET PO ×4 (06:09→20:48)
[2021-03-01] MEDS: LEVOTHYROXINE SODIUM 125 MCG TABLET PO (06:09)
[2021-03-01] MEDS: ASPIRIN 81 MG ENTERIC TABLET PO (07:52)
[2021-03-01] MEDS: ATORVASTATIN 40 MG TABLET PO (07:53)
[2021-03-01] MEDS: cloNIDine HCL 0.1 MG TABLET PO ×2 (07:53→17:08)
[2021-03-01] MEDS: LOSARTAN POTASSIUM 100 MG TABLET PO (07:54)
[2021-03-01] MEDS: NIFEdipine 30 MG TAB.ER.24 60 MG PO (07:54)
--- NOTE | 2021-03-01 08:17 | PC.NURSE ---
To dialysis per bed report given to Abdirahman SHEA
[2021-03-01] MEDS: FUROSEMIDE 80 MG TABLET PO ×2 (09:29→17:08)
[2021-03-01] MEDS: EPOETIN ALFA-EPBX 10,000 UNITS/ML VIAL 10000 UNITS IV PUSH (10:40)
--- NOTE | 2021-03-01 11:06 | PC.NURSE ---
PT returned from dialysis report received from Abdirahman SHEA 1 liter removed
--- NOTE | 2021-03-01 11:14 | PM.PNNEP ---
Progress Note: A&P Assessment and Plan (1) RADHA (acute kidney injury): Code(s): N17.9 - Acute kidney failure, unspecified Status: Acute Assessment and Plan: suspect this is more progression of disease rather than RADHA/ARF renal ultrasound with small echogenic kidneys initiated on renal replacement therapy/dialysis on this admission given advanced CKD at baseline, suspect she is probably ESRD/dialysis dependent (2) Chronic kidney disease (CKD), stage V: Code(s): N18.5 - Chronic kidney disease, stage 5 Status: Chronic Assessment and Plan: in January 2019, creatinine was 3.68mg/dl (GFR ~ 14cc/min) likely due to hypertensive nephrosclerosis based on outpatient evaluation (3) Uncontrolled hypertension: Code(s): I10 - Essential (primary) hypertension Status: Acute Assessment and Plan: quite elevated at baseline and on admission attempting to get BP ~ 160 systolic currently on nifedipine, clonidine, losartan and lasix ultimate goal is get systolic BP ~ 140 - 160 (4) Erythropoietin deficiency anemia: Code(s): D63.1 - Anemia in chronic kidney disease Status: Acute Assessment and Plan: partly related to advanced CKD Epogen with HD since BP doing better follow trend of H/H (5) Facial edema: Code(s): R60.0 - Localized edema Status: Acute Assessment and Plan: related to HD catheter?? monitor for now Will continue to follow. Subjective Date/time seen: 03/01/21 11:14 Chart reviewed - assuming care from Dr. Drew; tolerating dialysis treatment at the time of my visit (seen on HD at ~ 10:45); no apparent distress voiced; no issues/events to report overnight or earlier this AM. Exam Narrative: General: WD/WN AA female in NAD Heart: normal S1 and S2; no rub Lungs: clear to auscultation Abdomen: soft, nontender, nondistended, positive bowel sounds Extremities: no cyanosis or clubbing; no edema Skin: warm and dry Objective Data Vital Signs Vital Signs: Vital Signs Temp Pulse Resp BP Pulse Ox 03/01/21 10:55 37.2 C 93 16 166/84 H 03/01/21 10:47 91 155/85 H 03/01/21 10:30 93 152/84 H 03/01/21 10:15 100 161/86 H 03/01/21 10:00 81 153/83 H 03/01/21 09:45 78 152/79 H 03/01/21 09:30 86 170/87 H 03/01/21 09:15 80 163/83 H 03/01/21 09:00 77 134/77 03/01/21 08:45 76 142/79 H 03/01/21 08:33 75 148/83 H 03/01/21 08:16 80 174/81 H 03/01/21 08:05 37.1 C 82 16 189/94 H 03/01/21 08:00 103 H 190/77 H 03/01/21 04:15 79 03/01/21 04:00 36.4 C L 77 16 177/75 H 100 03/01/21 01:59 36.6 C 80 16 154/69 H 98 03/01/21 00:00 95 02/28/21 22:02 36.3 C L 85 16 160/85 H 100 02/28/21 20:00 85 16 100 02/28/21 19:09 138/82 02/28/21 17:07 186/90 H 02/28/21 14:32 180/76 H 02/28/21 12:20 37.3 C 84 18 188/72 H 100 Intake/Output Intake/Output: Intake & Output 02/26/21 02/27/21 02/28/21 03/01/21 23:59 23:59 23:59 23:59 Intake Total 0 1490 250 400 Output Total 150 4400 750 1000 Balance -150 -2910 -500 -600 Meds/Results Medications: Active Medications Generic Name Dose Route Start Last Admin Trade Name [facility] PRN Reason Stop Dose Admin Acetaminophen 650 mg 02/27/21 08:57 03/01/21 12:04 Acetaminophen 325 Mg Tablet PO 650 mg Q4H PRN Administration Headache,Mild Pain(1-3),Fever Hydrocodone Bitart/Acetaminophen 1 tab 02/27/21 12:33 02/27/21 18:05 Hydrocodone/Acetaminophen (*Crx) 5-325 Mg Tablet PO 1 tab Q4H PRN Administration Pain Rated 4-6 Albuterol 2 puff 02/26/21 23:10 Albuterol Sulfate (*Sp) Aerosol 1 Puff INHALATION Q4H PRN Shortness Of Breath Or Wheezing Aspirin 81 mg 03/01/21 09:00 03/01/21 07:52 Aspirin 81 Mg Enteric Tablet PO 81 mg QAM DALIA Administration Atorvastatin Calcium 40 mg 02/28/21 11:50 03/01/21 07:53 A
--- NOTE | 2021-03-01 11:55 | PM.IMPN ---
Progress Note: A&P Assessment and Plan (1) Acute CVA (cerebrovascular accident): Code(s): I63.9 - Cerebral infarction, unspecified Status: Acute Assessment and Plan: the patient was having stroke-like symptoms on 02/28/2021 and an MRI was obtained showing acute infarcts in the right frontal lobe and right frontoparietal region. Patient was placed on aspirin 81 mg daily better blood pressure control, with some permissive HTN between 180/110-160/80. Started on Atorvastatin 40 mg Carotid US showed <50 % stenosis bilaterally. Ordered PT/OT to monitor for discharge planning Tele showed a run of what appears to be sinus tachycardia for about 10 [address] Would recommend [address] Clerk for 2 weeks upon discharge for further evaluation and to rule out arrhythmia as the cause. Neurology was consulted for further evaluation and monitoring. Continue neurochecks Q4hrs. (2) Acute kidney injury superimposed on chronic kidney disease: Code(s): N17.9 - Acute kidney failure, unspecified; N18.9 - Chronic kidney disease, unspecified Status: Acute Assessment and Plan: Patient reports feeling fatigued and leg swelling over the last few weeks. Found with a creatinine of 12/BUN 92. she was admitted into the hospital with a consult to Nephrology and surgery to place a temporary dialysis catheter. Renal ultrasound showed Small bilateral renal cysts measuring 1 cm or less. Mildly echogenic renal cortical echotexture, consistent with chronic renal disease. Pt had temporary dialysis cath placed 02/27/21 and went for her first dialysis afterwards. She reports feeling better today other than headache. continue monitoring renal function and electrolytes. Appreciate Nephrology's consultation and input continue monitoring. She appears to be stable at this time. (3) Erythropoietin deficiency anemia: Code(s): D63.1 - Anemia in chronic kidney disease Status: Acute Assessment and Plan: Patient found to have acute anemia and required 1 unit of blood to be transfused. Most likely due to erythropoietin deficiency anemia due to her acute end-stage renal disease and a creatinine of 12. She has no signs of acute blood loss. Iron panel, B12 and folic acid were all normal. H&H 7.7/23% today. She has received 2 Units of PRBCs since hospitalization. Believe anemia is due to CKD and she is receiving erythropoietin deficiency. Normal iron panel, B12 and Folic acid Continue monitoring. Nephrology's input is greatly appreciated. Transfusion if <7. Monitor H&H daily. (4) Uncontrolled hypertension: Code(s): I10 - Essential (primary) hypertension Status: Acute Assessment and Plan: Patient found have a blood pressure of 210 systolic in the emergency room on arrival. Patient seems to be on multiple medications at home, amlodipine, clonidine, losartan, and triamterene-hydrochlorothiazide but with such severe uncontrolled high blood pressure she must not be very compliant. Some adjustments have been made- Increased Losartan to 100 mg daily, Nephrology stopped Amlodipine and Started Nifedipine 60 mg daily, Clonidine 0.1 mg BID continued. Nephrology also started the patient on Lasix 80 BID. Goal BP at this time is between 180/110- 160/80 P.r.n. hydralazine ordered for blood pressure greater than 200 systolic. Continue monitoring. Make adjustments if not needed. Appreciate recommendations. (5) Hypothyroid: Code(s): E03.9 - Hypothyroidism, unspecified Status: Chronic Assessment and Plan: TSH was high on recent labs with a normal T4. Will have her follow up with PCP. Continue Levothyroxine. Time Spent With Pat
[2021-03-01] MEDS: polyethylene glycoL 3350 17 GM POWD.PACK PO (13:20)
[2021-03-01] MEDS: DOCUSATE SODIUM 100 MG CAPSULE PO ×2 (13:20→20:48)
--- NOTE | 2021-03-01 15:00 | PM.PNGS ---
Progress Note: A&P Assessment and Plan (1) Acute kidney injury superimposed on chronic kidney disease: Code(s): N17.9 - Acute kidney failure, unspecified; N18.9 - Chronic kidney disease, unspecified Status: Acute Assessment and Plan: Patient to dialyze again today. (2) Encounter for insertion of venous access port: Code(s): Z45.2 - Encounter for adjustment and management of vascular access device Status: Acute Assessment and Plan: Catheter in place and working well. I discussed with the patient that there was a carotid artery puncture during the insertion. I also discussed with her that her MRI showed evidence of a mild stroke. It is certainly possible that the frontoparietal findings on MRI could be due to clot embolization from the carotid puncture. (3) Acute CVA (cerebrovascular accident): Code(s): I63.9 - Cerebral infarction, unspecified Status: Acute Assessment and Plan: As mentioned above, I explained to the patient there was evidence of a stroke. Discussed with hospitalist yesterday. MRI findings are likely from the carotid puncture rather than hypertension. It is interesting that the neurologic findings would suggest a left hemispheric source even though the MRI shows frontal and some parietal acute changes. Patient also had significant hypertension and this may have played a role. Will continue to follow. Seems to be improving and hopefully will reverse with no lasting defect. Subjective Subjective Date/Time Seen: 03/01/21 07:30 Post Op day: 2 Patient reports: feels better and pain is less Interval history: Patient feels much better this morning. Her nausea is essentially gone. Her headache is present but better. Review of Systems Review of Systems: All systems reviewed & are unremarkable except as noted in HPI and below (HPI and those items noted below) Constitutional: Constitutional: Reports headache(s) and Reports increased appetite Exam Neck: Carotids: normal carotid upstroke, no bruits and other (Mild right neck hematoma, no larger than yesterday) Neuro: General: patient oriented x3 Cranial nerves: Yes facial symmetry (Right lower lip droop is minimal) and Yes Other cranial nerve findings present (Slight leftward tongue deviation) Speech: normal speech Motor exam (neuro): Abnormal motor strength present (Right upper extremity strength 4/5) Objective Data Vital Signs Vital Signs: Vital Signs - 24 hr 02/28/21 17:07 02/28/21 19:09 02/28/21 20:00 Temperature Pulse Rate 85 Respiratory Rate 16 Blood Pressure 186/90 H 138/82 Pulse Oximetry 100 02/28/21 22:02 03/01/21 00:00 03/01/21 01:59 Temperature 36.3 C L 36.6 C Pulse Rate 85 95 80 Respiratory Rate 16 16 Blood Pressure 160/85 H 154/69 H Pulse Oximetry 100 98 03/01/21 04:00 03/01/21 04:15 03/01/21 08:00 Temperature 36.4 C L Pulse Rate 77 79 103 H Respiratory Rate 16 Blood Pressure 177/75 H 190/77 H Pulse Oximetry 100 03/01/21 08:05 03/01/21 08:16 03/01/21 08:33 Temperature 37.1 C Pulse Rate 82 80 75 Respiratory Rate 16 Blood Pressure 189/94 H 174/81 H 148/83 H Pulse Oximetry 03/01/21 08:45 03/01/21 09:00 03/01/21 09:15 Temperature Pulse Rate 76 77 80 Respiratory Rate Blood Pressure 142/79 H 134/77 163/83 H Pulse Oximetry 03/01/21 09:30 03/01/21 09:45 03/01/21 10:00 Temperature Pulse Rate 86 78 81 Respiratory Rate Blood Pressure 170/87 H 152/79 H 153/83 H Pulse Oximetry 03/01/21 10:15 03/01/21 10:30 03/01/21 10:47 Temperature Pulse Rate 100 93 91 Respiratory Rate Blood Pressure 161/86 H 152/84 H 155/85 H Pulse Oximetry 03/01/21 10:55 03/01/21 12:00 Temperature 37.2 C Pulse Rate 93 92 Respiratory Rate 16 Blood Pressure 166/84 H Pulse Oximetry Intake/Output Intake/Output: Intake & Output 02/26/21 02/27/21 02/28/21 03/01/21 23:59 23:59 23:59 23:59 Intake Total 0 1490 250
[2021-03-01] MEDS: LORATADINE 10 MG TABLET PO (20:47)
[2021-03-01] MEDS: HYDROcodone/acetaminophen (*CRX) 5-325 MG TABLET 1 TAB PO (23:41)
[2021-03-02] VITALS (8 sets, daily range): BP systolic 128–167; BP diastolic 67–87; PULSE 74–101; RESP 18–20; TEMP 36.3–36.8; O2SAT 100; BMI 18.4
[2021-03-02] MEDS: ACETAMINOPHEN 325 MG TABLET 650 MG PO (02:00)
[2021-03-02 03:30] LABS: Hepatitis B Core Ab Total Nonreactive (Nonreactive)
[2021-03-02 05:41] LABS: Hemoglobin 8.1 g/dL (12.0-15.0)
[2021-03-02 06:00] LABS: Albumin Level 3.7 g/dL (3.5-5.1); Anion Gap 9 mmol/L (8-16); Blood Urea Nitrogen 34 mg/dL (7-17); Calcium 8.8 mg/dL (8.4-10.2); Carbon Dioxide 27 mmol/L (22-30); Chloride 99 mmol/L (98-107); Estimated CRCL calculation 6 ml/min; Estimated Glomerular Filt Rate 9; Glucose 97 mg/dL (65-110); Phosphorus 3.7 mg/dL (2.5-4.5); Potassium 3.4 mmol/L (3.4-5.0); Sodium 135 mmol/L (137-145)
[2021-03-02] MEDS: LEVOTHYROXINE SODIUM 125 MCG TABLET PO (06:09)
[2021-03-02] MEDS: METOCLOPRAMIDE HCL 5 MG TABLET PO ×4 (06:09→21:58)
[2021-03-02] MEDS: ASPIRIN 81 MG ENTERIC TABLET PO (08:56)
[2021-03-02] MEDS: FUROSEMIDE 80 MG TABLET PO ×2 (08:56→17:11)
[2021-03-02] MEDS: ATORVASTATIN 40 MG TABLET PO (08:56)
[2021-03-02] MEDS: DOCUSATE SODIUM 100 MG CAPSULE PO ×2 (08:56→21:58)
[2021-03-02] MEDS: LOSARTAN POTASSIUM 100 MG TABLET PO (08:56)
[2021-03-02] MEDS: NIFEdipine 30 MG TAB.ER.24 60 MG PO (08:57)
[2021-03-02] MEDS: cloNIDine HCL 0.1 MG TABLET PO (09:02)
--- NOTE | 2021-03-02 09:27 | WPDNEURCNPN ---
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 Consult date: 03/02/21 Time Seen: 11:00 HPI: Madison Santos is a 65 year old female Admitted to the hospital for the ongoing history of 1. Chronic kidney disease 2. Hypertension 3. Tobacco dependence 4. Abnormal lab. Patient was evaluated by the primary care physician due to the bilateral lower extremity edema she was found to have creatinine of 12 with hemoglobin of 6.8 though she was not in any acute distress otherwise. She has ongoing history of chronic kidney disease stage 5 with GFR [id number]/minute, hypertension, history of intestinal obstruction in the past, history of gastric ulcer in the past, and also hypothyroidism. She has undergone cholecystectomy hysterectomy and removal of ovary. Also has history of current everyday smoker with smoking pack years of 20.5 and her medications at the time of in admission included losartan 50 mg daily amlodipine 10 mg at night clonidine 0.1 mg twice a day levothyroxine 125 micro grain daily trazodone 50 mg at HS and triamterene hydrochlorothiazide daily evaluation documented abnormal lab with mild leukopenia, anemia with hemoglobin initially 7.6 most recently 8.1 platelet count 202 INR of 0.9 with a PTT 27.3 and BUN of initially 97 most recently 34 with creatinine coming down from 11 to 6.0 with GFR only 9 hepatitis panel negative for be but positive for C, initial CT head negative but MRI showing acute infarct in the right frontal lobe and right frontoparietal rope with 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 for the CTA was recommended and carotid Doppler study less than 50% stenosis bilaterally Review of Systems Review of Systems: All systems reviewed & are unremarkable except as noted in HPI and below PMFSH Past Medical History Medical History CKD (chronic kidney disease) stage 5, GFR less than 15 ml/min Erythropoietin deficiency anemia Essential (primary) hypertension Facial edema History of intestinal obstruction 2005, 2015 Hx of gastric ulcer (~2015) Hypothyroid Suspected COVID-19 virus infection Surgical History Surgical History History of cholecystectomy (~1985) History of hysterectomy (~1978) Hx of removal of ovary (~2000) Family History Family History Mother Family history of coronary artery disease Hypertension Father Family history of malignant neoplasm of stomach Hypertension Sibling Diabetes mellitus Hypertension Social History Social History Smoking packs per day: 0.5 Smoking cigarettes per day: 10.0 Years smoked: 41 Smoking pack-years: 20.50 Smoking status: Current every day smoker Tobacco type: cigarettes Second hand tobacco smoke exposure: Yes Alcohol intake: current Drinks per week: 1 Substance use: former Substance use type: marijuana Last use: 40 years Spiritual care concerns: Yes (Catholic) Meds Home Medications and Allergies Home Medications Medication Instructions Recorded Confirmed Type losartan 50 mg tablet 50 mg PO DAILY #90 tablet 02/19/21 02/26/21 Rx acetaminophen 650 mg PO Q4-6H PRN 02/26/21 02/26/21 History albuterol sulfate [Ventolin HFA] 2 inhalation INHALATION Q4H PRN 02/26/21 02/26/21 History amlodipine 10 mg PO HS 02/26/21 02/26/21 History clonidine HCl 0.1 mg PO BID 02/26/21 02/26/21 History fexofenadine [Viridiana Allergy] 180 mg PO HS 02/26/21 02/26/21 History levothyroxine [Euthyrox] 125 mcg PO DAILY 02/26/21 02/26/21 History trazodone 50 mg PO HS PRN
--- NOTE | 2021-03-02 10:05 | PM.IMPN ---
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 Started on Atorvastatin 40 mg Carotid US showed <50 % stenosis bilaterally. Ordered PT/OT to monitor for discharge planning Tele showed a run of what appears to be sinus tachycardia for about 10 beats. Would recommend Zipper Setter for 2 weeks upon discharge for further evaluation and to rule out arrhythmia as the cause. Neurology was consulted for further evaluation and monitoring. Continue neurochecks Q4hrs. Recommended an MRA since there is a possible aneurysm will order (2) Acute kidney injury superimposed on chronic kidney disease: Code(s): N17.9 - Acute kidney failure, unspecified; N18.9 - Chronic kidney disease, unspecified Status: Acute Assessment and Plan: Patient reports feeling fatigued and leg swelling over the last few weeks. Found with a creatinine of 12/BUN 92. she was admitted into the hospital with a consult to Nephrology and surgery to place a temporary dialysis catheter. Renal ultrasound showed Small bilateral renal cysts measuring 1 cm or less. Mildly echogenic renal cortical echotexture, consistent with chronic renal disease. Pt had temporary dialysis cath placed 02/27/21 and went for her first dialysis afterwards. She reports feeling better today other than headache. continue monitoring renal function and electrolytes. Appreciate Nephrology's consultation and input continue monitoring. She appears to be stable at this time. BUN/CR 34/6.0 Supposed to have dialysis tomorrow Trend labs (3) Erythropoietin deficiency anemia: Code(s): D63.1 - Anemia in chronic kidney disease Status: Acute Assessment and Plan: Patient found to have acute anemia and required 1 unit of blood to be transfused. Most likely due to erythropoietin deficiency anemia due to her acute end-stage renal disease and a creatinine of 12. She has no signs of acute blood loss. Iron panel, B12 and folic acid were all normal. H&H 8.1/25% today. She has received 2 Units of PRBCs since hospitalization. Believe anemia is due to CKD and she is receiving erythropoietin deficiency. Normal iron panel, B12 and Folic acid Continue monitoring. Nephrology's input is greatly appreciated. Transfusion if <7. Monitor H&H daily. (4) Uncontrolled hypertension: Code(s): I10 - Essential (primary) hypertension Status: Acute Assessment and Plan: Patient found have a blood pressure of 210 systolic in the emergency room on arrival. Patient seems to be on multiple medications at home, amlodipine, clonidine, losartan, and triamterene-hydrochlorothiazide but with such severe uncontrolled high blood pressure she must not be very compliant. Some adjustments have been made- Increased Losartan to 100 mg daily, Nephrology stopped Amlodipine and Started Nifedipine 60 mg daily, Clonidine 0.1 mg BID continued. Nephrology also started the patient on Lasix 80 BID. Goal BP at this time is between 180/110- 160/80 P.r.n. hydralazine ordered for blood pressure greater than 200 systolic. Continue monitoring. Make adjustments if not needed. Appreciate recommendations. Will get MRA if aneurysm is noted the goal will need to be decreased (5) Hypothyroid: Code(s): E03.9 - Hypothyroidism, unspecified Status: Chronic Assessment and Plan: TSH was high on recent labs with a normal T4. W
--- NOTE | 2021-03-02 11:01 | PM.PNNEP ---
Progress Note: A&P Assessment and Plan (1) RADHA (acute kidney injury): Code(s): N17.9 - Acute kidney failure, unspecified Status: Acute Assessment and Plan: suspect this is more progression of disease rather than RADHA/ARF renal ultrasound with small echogenic kidneys initiated on renal replacement therapy/dialysis on this admission given advanced CKD at baseline, suspect she is probably ESRD/dialysis dependent (2) Chronic kidney disease (CKD), stage V: Code(s): N18.5 - Chronic kidney disease, stage 5 Status: Chronic Assessment and Plan: in January 2019, creatinine was 3.68mg/dl (GFR ~ 14cc/min) likely due to hypertensive nephrosclerosis based on outpatient evaluation (3) Uncontrolled hypertension: Code(s): I10 - Essential (primary) hypertension Status: Acute Assessment and Plan: doing better at this time attempting to get BP ~ 160 systolic currently on nifedipine, clonidine, losartan and lasix ultimate goal is get systolic BP ~ 140 - 160 eventually (4) Erythropoietin deficiency anemia: Code(s): D63.1 - Anemia in chronic kidney disease Status: Acute Assessment and Plan: partly related to advanced CKD Epogen with HD since BP doing better follow trend of H/H (5) Facial edema: Code(s): R60.0 - Localized edema Status: Acute Assessment and Plan: related to HD catheter?? monitor for now Long and extensive discussion with patient's son at bedside regarding all of the above issues and tentative plan of care. Also discussed the likelihood of outpatient dialysis and the strong possibility that the patient may be dialysis dependent/ESRD status. Will continue to follow. Subjective Date/time seen: 03/02/21 11:01 Tolerated dialysis yesterday without any issues or problems; son at bedside and we discussed the situation regarding her kidney disease and hypertension; no other acute complaints voiced at this time. Exam Narrative: General: WD/WN AA female in NAD Heart: normal S1 and S2; no rub Lungs: clear to auscultation Abdomen: soft, nontender, nondistended, positive bowel sounds Extremities: no cyanosis or clubbing; no edema Skin: warm and intact Objective Data Vital Signs Vital Signs: Vital Signs Temp Pulse Resp BP Pulse Ox 03/02/21 08:15 84 03/02/21 08:00 36.3 C L 82 18 167/87 H 100 03/02/21 04:00 36.7 C 86 18 151/76 H 100 03/02/21 00:00 36.4 C L 87 20 140/67 100 03/01/21 20:00 37.0 C 84 18 155/73 H 100 03/01/21 16:00 36.7 C 90 16 140/72 100 Intake/Output Intake/Output: Intake & Output 02/27/21 02/28/21 03/01/21 03/02/21 23:59 23:59 23:59 23:59 Intake Total 0387 825 0722 540 Output Total 4400 750 1000 600 Balance -2910 -500 340 -60 Meds/Results Medications: Active Medications Generic Name Dose Route Start Last Admin Trade Name Freq PRN Reason Stop Dose Admin Acetaminophen 650 mg 02/27/21 08:57 03/02/21 02:00 Acetaminophen 325 Mg Tablet PO 650 mg Q4H PRN Administration Headache,Mild Pain(1-3),Fever Hydrocodone Bitart/Acetaminophen 1 tab 02/27/21 12:33 03/01/21 23:41 Hydrocodone/Acetaminophen (*Crx) 5-325 Mg Tablet PO 1 tab Q4H PRN Administration Pain Rated 4-6 Albuterol 2 puff 02/26/21 23:10 Albuterol Sulfate (*Sp) Aerosol 1 Puff INHALATION Q4H PRN Shortness Of Breath Or Wheezing Aspirin 81 mg 03/01/21 09:00 03/02/21 08:56 Aspirin 81 Mg Enteric Tablet PO 81 mg QAM DALIA Administration Atorvastatin Calcium 40 mg 02/28/21 11:50 03/02/21 08:56 Atorvastatin 40 Mg Tablet PO 40 mg DAILY DALIA Administration Bisacodyl 10 mg 03/01/21 12:47 Bisacodyl 10 Mg Suppository RECTAL DAILY PRN Constipation Clonidine HCl 0.1 mg 02/27/21 09:00 03/02/21 09:02 Clonidine Hcl 0.1 Mg Tablet PO 0.1 mg BID DALIA Administration Docusate Sodium 100 mg 03/01/21 12:46 03/02/21
--- NOTE | 2021-03-02 11:01 | P.PNNP_ITS ---
Progress Note: A&P Assessment and Plan (1) RADHA (acute kidney injury): Code(s): N17.9 - Acute kidney failure, unspecified Status: Acute Assessment and Plan: * suspect this is more progression of disease rather than RADHA/ARF * renal ultrasound with small echogenic kidneys * initiated on renal replacement therapy/dialysis on this admission * given advanced CKD at baseline, suspect she is probably ESRD/dialysis depe javi (2) Chronic kidney disease (CKD), stage V: Code(s): N18.5 - Chronic kidney disease, stage 5 Status: Chronic Assessment and Plan: * in January 2019, creatinine was 3.68mg/dl (GFR ~ 14cc/min) * likely due to hypertensive nephrosclerosis based on outpatient evaluation (3) Uncontrolled hypertension: Code(s): I10 - Essential (primary) hypertension Status: Acute Assessment and Plan: * doing better at this time * attempting to get BP ~ 160 systolic currently * on nifedipine, clonidine, losartan and lasix * ultimate goal is get systolic BP ~ 140 - 160 eventually (4) Erythropoietin deficiency anemia: Code(s): D63.1 - Anemia in chronic kidney disease Status: Acute Assessment and Plan: * partly related to advanced CKD * Epogen with HD since BP doing better * follow trend of H/H (5) Facial edema: Code(s): R60.0 - Localized edema Status: Acute Assessment and Plan: * related to HD catheter?? * monitor for now Long and extensive discussion with patient's son at bedside regarding all of the above issues and tentative plan of care. Also discussed the likelihood of outpatient dialysis and the strong possibility that the patient may be dialysis dependent/ESRD status. Will continue to follow. Subjective Date/time seen: 03/02/21 11:01 Tolerated dialysis yesterday without any issues or problems; son at bedside and we discussed the situation regarding her kidney disease and hypertension; no other acute complaints voiced at this time. Exam Narrative: General: WD/WN AA female in NAD Heart: normal S1 and S2; no rub Lungs: clear to auscultation Abdomen: soft, nontender, nondistended, positive bowel sounds Extremities: no cyanosis or clubbing; no edema Skin: warm and intact Objective Data Vital Signs Vital Signs: Vital Signs Temp Pulse Resp BP Pulse Ox 03/02/21 08:15 84 03/02/21 08:00 36.3 C L 82 18 167/87 H 100 03/02/21 04:00 36.7 C 86 18 151/76 H 100 03/02/21 00:00 36.4 C L 87 20 140/67 100 03/01/21 20:00 37.0 C 84 18 155/73 H 100 03/01/21 16:00 36.7 C 90 16 140/72 100 Intake/Output Intake/Output: Intake & Output 02/27/21 02/28/21 03/01/21 03/02/21 23:59 23:59 23:59 23:59 Intake Total 3611 661 5818 540 Output Total 4400 750 1000 600 Balance -2910 -500 340 -60 Meds/Results Medications: Active Medications Generic Name Dose Route Start Last Admin Trade Name Moni PRN Reason Stop Dose Admin Acetaminophen 650 mg 02/27/21 08:57 03/02/21 02:00 Acetaminophen 325 Mg Tablet PO 650 mg Q4H PRN Administration Headache,Mild Pain(1-3),Fever Hydrocodone Bitart/Acetaminophen 1 tab 02/27/21 12:33 03/01/21 23:41 Hydrocodone/Acetaminophen (*Crx) 5-325 Mg Tablet PO 1 tab
[2021-03-02] MEDS: cloNIDine HCL 0.2 MG TABLET PO (17:11)
[2021-03-02] MEDS: LORATADINE 10 MG TABLET PO (21:58)
[2021-03-02] MEDS: traZODone HCL 50 MG TABLET PO (22:18)
[2021-03-03] VITALS (18 sets, daily range): BP systolic 121–165; BP diastolic 57–96; PULSE 69–102; RESP 16; TEMP 36–37.5; O2SAT 98–100
[2021-03-03] MEDS: HYDROcodone/acetaminophen (*CRX) 5-325 MG TABLET 1 TAB PO ×2 (00:05→05:09)
[2021-03-03] MEDS: METOCLOPRAMIDE HCL 5 MG TABLET PO ×2 (05:29→12:27)
[2021-03-03] MEDS: LEVOTHYROXINE SODIUM 125 MCG TABLET PO (05:29)
[2021-03-03 06:02] LABS: Hematocrit 26.1 % (37.0-47.0); Hemoglobin 8.5 g/dL (12.0-15.0); Mean Corpuscular HGB Conc 32.6 g/dl (32-36); Mean Corpuscular Hemoglobin 27.1 pg (26-34); Mean Corpuscular Volume 83.1 fl (80-100); Mean Platelet Volume 10.4 fl (7.4-10.4); Platelet Count Result 240 k/mm3 (150-375); Red Blood Count 3.14 M/mm3 (4.2-5.4); Red Cell Distribution Width 14.7 % (11.5-14.5); White Blood Count 6.7 K/mm3 (4.5-10.0)
[2021-03-03 06:24] LABS: Alanine Aminotransferase 13 U/L (4-35); Albumin Level 3.8 g/dL (3.5-5.1); Alkaline Phosphatase 61 U/L (38-126); Anion Gap 13 mmol/L (8-16); Aspartate Amino Transferase 39 U/L (14-36); Bilirubin,Total 0.5 mg/dL (0.2-1.3); Blood Urea Nitrogen 45 mg/dL (7-17); Calcium 8.9 mg/dL (8.4-10.2); Carbon Dioxide 24 mmol/L (22-30); Chloride 96 mmol/L (98-107); Estimated CRCL calculation 5 ml/min; Estimated Glomerular Filt Rate 7; Glucose 94 mg/dL (65-110); Magnesium 2.3 mg/dL (1.6-2.3); Potassium 3.4 mmol/L (3.4-5.0); Sodium 133 mmol/L (137-145)
[2021-03-03] MEDS: SODIUM CHLORIDE 0.9% IV 1,000 ML 999 ML IV CONT (10:18)
[2021-03-03] MEDS: EPOETIN ALFA-EPBX 10,000 UNITS/ML VIAL 10000 UNITS IV PUSH (10:19)
--- NOTE | 2021-03-03 12:00 | P.PNNP_ITS ---
Progress Note: A&P Assessment and Plan (1) RADHA (acute kidney injury): Code(s): N17.9 - Acute kidney failure, unspecified Status: Acute Assessment and Plan: * suspect this is more progression of disease rather than RADHA/ARF * renal ultrasound with small echogenic kidneys * initiated on renal replacement therapy/dialysis on this admission * given advanced CKD at baseline, suspect she is probably ESRD/dialysis depe ndent * HD today and continue M/W/F schedule for now (2) Chronic kidney disease (CKD), stage V: Code(s): N18.5 - Chronic kidney disease, stage 5 Status: Chronic Assessment and Plan: * in January 2019, creatinine was 3.68mg/dl (GFR ~ 14cc/min) * likely due to hypertensive nephrosclerosis based on outpatient evaluation (3) Uncontrolled hypertension: Code(s): I10 - Essential (primary) hypertension Status: Acute Assessment and Plan: * doing better at this time * attempting to get BP ~ 160 systolic currently * on nifedipine, clonidine, losartan and lasix * ultimate goal is get systolic BP ~ 140 - 160 eventually (4) Erythropoietin deficiency anemia: Code(s): D63.1 - Anemia in chronic kidney disease Status: Acute Assessment and Plan: * partly related to advanced CKD * Epogen with HD since BP doing better * follow trend of H/H (5) Facial edema: Code(s): R60.0 - Localized edema Status: Acute Assessment and Plan: * related to HD catheter?? * monitor for now Will continue to follow. Subjective Date/time seen: 03/03/21 12:00 Tolerating dialysis treatment at the time if my visit (seen on HD at ~ 11:45AM); no issues or problems voiced; no events overnight or earller this AM; BP appears better controlled. Exam Narrative: General: WD/WN AA female in NAD Heart: normal S1 and S2; no rub Lungs: clear to auscultation Abdomen: soft, nontender, nondistended, positive bowel sounds Extremities: no cyanosis or clubbing; no edema Skin: warm and intact Objective Data Vital Signs Vital Signs: Vital Signs Temp Pulse Resp BP Pulse Ox 03/03/21 12:05 37.2 C 100 16 134/84 03/03/21 11:55 98 131/90 03/03/21 11:35 102 H 121/76 03/03/21 11:15 93 139/93 H 03/03/21 11:00 96 140/57 L 03/03/21 10:45 97 127/87 03/03/21 10:30 92 147/88 H 03/03/21 10:15 89 165/96 H 03/03/21 10:00 90 142/94 H 03/03/21 09:45 89 152/88 H 03/03/21 09:30 91 156/83 H 03/03/21 09:15 79 159/87 H 03/03/21 08:54 78 162/85 H 03/03/21 08:45 36.2 C L 79 16 161/79 H 03/03/21 08:00 36.9 C 70 16 152/72 H 100 03/03/21 04:00 37.5 C 72 16 155/73 H 100 03/03/21 00:00 37.2 C 86 16 152/68 H 98 03/02/21 20:00 36.8 C 81 20 128/72 100 03/02/21 16:15 36.4 C L 89 18 164/85 H 100 03/02/21 16:00 84 Intake/Output Intake/Output: Intake & Output 02/28/21 03/01/21 03/02/21 03/03/21 23:59 23:59 23:59 23:59 Intake Total 250 1340 1320 1007 Output Total 750 1000 1300 2300 Balance -500 340 64 -7127 Meds/Results Medications: Active Medications Generic Name Dose Route Start Last Admin Trade Name Moni BENAVIDES
--- NOTE | 2021-03-03 12:00 | PM.PNNEP ---
Progress Note: A&P Assessment and Plan (1) RADHA (acute kidney injury): Code(s): N17.9 - Acute kidney failure, unspecified Status: Acute Assessment and Plan: suspect this is more progression of disease rather than RADHA/ARF renal ultrasound with small echogenic kidneys initiated on renal replacement therapy/dialysis on this admission given advanced CKD at baseline, suspect she is probably ESRD/dialysis dependent HD today and continue M/W/F schedule for now (2) Chronic kidney disease (CKD), stage V: Code(s): N18.5 - Chronic kidney disease, stage 5 Status: Chronic Assessment and Plan: in January 2019, creatinine was 3.68mg/dl (GFR ~ 14cc/min) likely due to hypertensive nephrosclerosis based on outpatient evaluation (3) Uncontrolled hypertension: Code(s): I10 - Essential (primary) hypertension Status: Acute Assessment and Plan: doing better at this time attempting to get BP ~ 160 systolic currently on nifedipine, clonidine, losartan and lasix ultimate goal is get systolic BP ~ 140 - 160 eventually (4) Erythropoietin deficiency anemia: Code(s): D63.1 - Anemia in chronic kidney disease Status: Acute Assessment and Plan: partly related to advanced CKD Epogen with HD since BP doing better follow trend of H/H (5) Facial edema: Code(s): R60.0 - Localized edema Status: Acute Assessment and Plan: related to HD catheter?? monitor for now Will continue to follow. Subjective Date/time seen: 03/03/21 12:00 Tolerating dialysis treatment at the time if my visit (seen on HD at ~ 11:45AM); no issues or problems voiced; no events overnight or earller this AM; BP appears better controlled. Exam Narrative: General: WD/WN AA female in NAD Heart: normal S1 and S2; no rub Lungs: clear to auscultation Abdomen: soft, nontender, nondistended, positive bowel sounds Extremities: no cyanosis or clubbing; no edema Skin: warm and intact Objective Data Vital Signs Vital Signs: Vital Signs Temp Pulse Resp BP Pulse Ox 03/03/21 12:05 37.2 C 100 16 134/84 03/03/21 11:55 98 131/90 03/03/21 11:35 102 H 121/76 03/03/21 11:15 93 139/93 H 03/03/21 11:00 96 140/57 L 03/03/21 10:45 97 127/87 03/03/21 10:30 92 147/88 H 03/03/21 10:15 89 165/96 H 03/03/21 10:00 90 142/94 H 03/03/21 09:45 89 152/88 H 03/03/21 09:30 91 156/83 H 03/03/21 09:15 79 159/87 H 03/03/21 08:54 78 162/85 H 03/03/21 08:45 36.2 C L 79 16 161/79 H 03/03/21 08:00 36.9 C 70 16 152/72 H 100 03/03/21 04:00 37.5 C 72 16 155/73 H 100 03/03/21 00:00 37.2 C 86 16 152/68 H 98 03/02/21 20:00 36.8 C 81 20 128/72 100 03/02/21 16:15 36.4 C L 89 18 164/85 H 100 03/02/21 16:00 84 Intake/Output Intake/Output: Intake & Output 02/28/21 03/01/21 03/02/21 03/03/21 23:59 23:59 23:59 23:59 Intake Total 250 1340 1320 1007 Output Total 750 1000 1300 2300 Balance -500 340 20 -1293 Meds/Results Medications: Active Medications Generic Name Dose Route Start Last Admin Trade Name Freq PRN Reason Stop Dose Admin Acetaminophen 650 mg 02/27/21 08:57 03/02/21 02:00 Acetaminophen 325 Mg Tablet PO 650 mg Q4H PRN Administration Headache,Mild Pain(1-3),Fever Hydrocodone Bitart/Acetaminophen 1 tab 02/27/21 12:33 03/03/21 05:09 Hydrocodone/Acetaminophen (*Crx) 5-325 Mg Tablet PO 1 tab Q4H PRN Administration Pain Rated 4-6 Albuterol 2 puff 02/26/21 23:10 Albuterol Sulfate (*Sp) Aerosol 1 Puff INHALATION Q4H PRN Shortness Of Breath Or Wheezing Aspirin 81 mg 03/01/21 09:00 03/02/21 08:56 Aspirin 81 Mg Enteric Tablet PO 81 mg QAM DALIA Administration Atorvastatin Calcium 40 mg 02/28/21 11:50 03/02/21 08:56 Atorvastatin 40 Mg Tablet PO 40 mg DAILY DALIA Administration Bisacodyl 10 mg 03/01/21 1
[2021-03-03] MEDS: ATORVASTATIN 40 MG TABLET PO (12:24)
[2021-03-03] MEDS: ASPIRIN 81 MG ENTERIC TABLET PO (12:24)
[2021-03-03] MEDS: DOCUSATE SODIUM 100 MG CAPSULE PO (12:24)
[2021-03-03] MEDS: NIFEdipine 30 MG TAB.ER.24 60 MG PO (12:25)
[2021-03-03] MEDS: polyethylene glycoL 3350 17 GM POWD.PACK PO (12:25)
[2021-03-03] MEDS: LOSARTAN POTASSIUM 100 MG TABLET PO (12:25)
[2021-03-03] MEDS: cloNIDine HCL 0.2 MG TABLET PO (12:27)
[2021-03-03] MEDS: FUROSEMIDE 80 MG TABLET PO (12:35)
--- NOTE | 2021-03-03 14:06 | P.DS_ITS ---
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 * Started on Atorvastatin 40 mg * Carotid US showed <50 % stenosis bilaterally. * Ordered PT/OT to monitor for discharge planning * Tele showed a run of what appears to be sinus tachycardia for about 10 beats. Would recommend Package Dyeing Machine Operator for 2 weeks upon discharge for further evaluation and to rule out arrhythmia as the cause. * Neurology was consulted for further evaluation and monitoring. * Continue neurochecks Q4hrs. * Recommended an MRA since there is a possible aneurysm will order (2) Acute kidney injury superimposed on chronic kidney disease: Code(s): N17.9 - Acute kidney failure, unspecified; N18.9 - Chronic kidney disease, unspecified Status: Acute Assessment and Plan: Patient reports feeling fatigued and leg swelling over the last few weeks. Found with a creatinine of 12/BUN 92. she was admitted into the hospital with a consult to Nephrology and surgery to place a temporary dialysis catheter. * Renal ultrasound showed Small bilateral renal cysts measuring 1 cm or less. Mildly echogenic renal cortical echotexture, consistent with chronic renal disease. * Pt had temporary dialysis cath placed 02/27/21 and went for her first dialysis afterwards. * She reports feeling better today other than headache. * continue monitoring renal function and electrolytes. * Appreciate Nephrology's consultation and input * continue monitoring. She appears to be stable at this time. * BUN/CR 34/6.0 * Supposed to have dialysis tomorrow * Trend labs (3) Erythropoietin deficiency anemia: Code(s): D63.1 - Anemia in chronic kidney disease Status: Acute Assessment and Plan: Patient found to have acute anemia and required 1 unit of blood to be transfused. Most likely due to erythropoietin deficiency anemia due to her acute end-stage renal disease and a creatinine of 12. She has no signs of acute blood loss. Iron panel, B12 and folic acid were all normal. * H&H 8.1/25% today. She has received 2 Units of PRBCs since hospitalization. Believe anemia is due to CKD and she is receiving erythropoietin deficiency. * Normal iron panel, B12 and Folic acid * Continue monitoring. Nephrology's input is greatly appreciated. Transfusion if <7. Monitor H&H daily. (4) Uncontrolled hypertension: Code(s): I10 - Essential (primary) hypertension Status: Acute Assessment and Plan: Patient found have a blood pressure of 210 systolic in the emergency room on arrival. Patient seems to be on multiple medications at home, amlodipine, clonidine, losartan, and triamterene-hydrochlorothiazide but with such severe uncontrolled high blood pressure she must not be very compliant. * Some adjustments have been made- Increased Losartan to 100 mg daily, Nephrology stopped Amlodipine and Started Nifedipine 60 mg daily, Clonidine 0.1 mg BID continued. Nephrology also started the patient on Lasix 80 BID. * Goal BP at
--- NOTE | 2021-03-03 14:06 | PM.DS ---
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 Started on Atorvastatin 40 mg Carotid US showed <50 % stenosis bilaterally. Ordered PT/OT to monitor for discharge planning Tele showed a run of what appears to be sinus tachycardia for about 10 beats. Would recommend Experience Planning Strategist for 2 weeks upon discharge for further evaluation and to rule out arrhythmia as the cause. Neurology was consulted for further evaluation and monitoring. Continue neurochecks Q4hrs. Recommended an MRA since there is a possible aneurysm will order (2) Acute kidney injury superimposed on chronic kidney disease: Code(s): N17.9 - Acute kidney failure, unspecified; N18.9 - Chronic kidney disease, unspecified Status: Acute Assessment and Plan: Patient reports feeling fatigued and leg swelling over the last few weeks. Found with a creatinine of 12/BUN 92. she was admitted into the hospital with a consult to Nephrology and surgery to place a temporary dialysis catheter. Renal ultrasound showed Small bilateral renal cysts measuring 1 cm or less. Mildly echogenic renal cortical echotexture, consistent with chronic renal disease. Pt had temporary dialysis cath placed 02/27/21 and went for her first dialysis afterwards. She reports feeling better today other than headache. continue monitoring renal function and electrolytes. Appreciate Nephrology's consultation and input continue monitoring. She appears to be stable at this time. BUN/CR 34/6.0 Supposed to have dialysis tomorrow Trend labs (3) Erythropoietin deficiency anemia: Code(s): D63.1 - Anemia in chronic kidney disease Status: Acute Assessment and Plan: Patient found to have acute anemia and required 1 unit of blood to be transfused. Most likely due to erythropoietin deficiency anemia due to her acute end-stage renal disease and a creatinine of 12. She has no signs of acute blood loss. Iron panel, B12 and folic acid were all normal. H&H 8.1/25% today. She has received 2 Units of PRBCs since hospitalization. Believe anemia is due to CKD and she is receiving erythropoietin deficiency. Normal iron panel, B12 and Folic acid Continue monitoring. Nephrology's input is greatly appreciated. Transfusion if <7. Monitor H&H daily. (4) Uncontrolled hypertension: Code(s): I10 - Essential (primary) hypertension Status: Acute Assessment and Plan: Patient found have a blood pressure of 210 systolic in the emergency room on arrival. Patient seems to be on multiple medications at home, amlodipine, clonidine, losartan, and triamterene-hydrochlorothiazide but with such severe uncontrolled high blood pressure she must not be very compliant. Some adjustments have been made- Increased Losartan to 100 mg daily, Nephrology stopped Amlodipine and Started Nifedipine 60 mg daily, Clonidine 0.1 mg BID continued. Nephrology also started the patient on Lasix 80 BID. Goal BP at this time is between 180/110- 160/80 P.r.n. hydralazine ordered for blood pressure greater than 200 systolic. Continue monitoring. Make adjustments if not needed. Appreciate recommendations. 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
[2021-03-03 16:04] LABS: Hepatitis C RNA, Quant PCR 527000 IU/mL
== END 2021-03-03 16:59 | disposition home or self-care (01) | DRG 673 ==
LOC: ANHED 19:15 → ANHIMU 02-27 00:30 → ANH2MED 03-02 10:50 → ANHIMU 03-04 14:21
PROVIDERS: Emergency Medicine; Internal Medicine Nephrology; Nurse Practitioner; Surgery; Admitting Provider Internal Medicine; Emergency Provider General Practice; PCP Nurse Practitioner Family; Visit Provider Physician Assistant
PROC: 0JH63XZ Insertion of Tunneled Vascular Access Device into Chest Subcutaneous Tissue and Fascia, Percutaneous Approach (ICD-10-PCS; CPT 36908; principal; 2021-02-27 10:00)
DX: N17.9 Acute kidney failure, unspecified; I63.9 Cerebral infarction, unspecified; I12.0 Hypertensive chronic kidney disease with stage 5 chronic kidney disease or end stage renal disease; N18.5 Chronic kidney disease, stage 5; D63.1 Anemia in chronic kidney disease; E03.9 Hypothyroidism, unspecified; F17.210 Nicotine dependence, cigarettes, uncomplicated; R60.0 Localized edema; Z79.899 Other long term (current) drug therapy
CPT/HCPCS: 36415; 36430; 70450; 70544; 70551; 71046; 76775; 77001; 80048; 80053; 80069; 80076; 81001; 82607; 82728; 82746; 83540; 83550; 83735; 84132; 84443; 85014; 85018; 85025; 85027; 85610; 85730; 86704; 86706; 86803; 86850; 86900; 86901; 86920; 87340; 87522; 93005; 93306; 93880; 97161; 97165; 99285; A9270; C1750; G0257; J0330; J0360; J0690; J1644; J2270; J2405; J2704; J3010; J7030; J7050; J7120; P9016; Q5106

== ENCOUNTER 2021-05-02 23:28 | Inpatient (IN) | payer MEDICARE, SELFPAY ==
--- NOTE | ~2021-05-02 | XR_ITS ---
EXAMINATION: XR abdomen obstructive series EXAM DATE: 05/05/2021 10:36 INDICATION: LT lower abd pain, distention, not passing gas. TECHNIQUE: Frontal upright projection of the upper abdomen, frontal projection of the lower abdomen f or interpretation. Correlation is made to CT abdomen pelvis 05/03/2021. FINDINGS: There is paucity of colonic stool, but moderate amount of gas with air-fluid levels, diarrh ea. No small bowel dilation, nonobstructive bowel gas pattern. There are no suspicious calcificat ions identified. There is no organomegaly suspected. The bones are unremarkable. There is no fr ee intraperitoneal air. Lung bases unremarkable. IMPRESSION: Colonic air-fluid levels. Could be enteritis/diarrhea. Reviewed, dictated and finalized at location A.
--- NOTE | ~2021-05-02 | XR_ITS ---
EXAMINATION: XR chest port-a-cath/central EXAM DATE: 05/03/2021 13:12 INDICATION: central line placement. TECHNIQUE: Portable AP frontal chest x-ray was obtained. Comparison is made to prior examination from 02/27/2021. FINDINGS: There is right-sided IJ approach catheter. There is another right IJ line which is superimp osed on this, tip that appears to be below the level of the gerry. No evidence postprocedure pneumot horax. Borderline heart size. Mild hyperinflation. There are no osseous abnormalities identified. IMPRESSION: No acute cardiopulmonary findings. Reviewed, dictated and finalized at location A.
--- NOTE | ~2021-05-02 | CT_ITS ---
6 EXAMINATION: CT abdomen pelvis wo con DATE: 05/03/2021 00:05 INDICATION: Generalized abdominal pain for one day. Right flank pain. TECHNIQUE: Computed tomography (CT) of the abdomen and pelvis was performed without intravenous contr ast. Automated exposure control and iterative reconstruction technique were employed. Exam dose: 152 .59 mGy-cm total exam DLP. COMPARISON: 02/27/2021 bilateral renal ultrasound examination FINDINGS: There is mild atelectasis in the lower lobes. Normal heart size. No pericardial or pleural effusion. Normal heart size. No pericardial or pleural effusion. Status post cholecystectomy. The common bile duct is dilated, measuring at least 11 mm diameter, poss ibly due to post cholecystectomy state. Recommend correlation with serum bilirubin level. Further onur luation with MRCP may be of benefit as clinically appropriate. There are calcified hepatic and splenic granulomas. No hepatic, splenic or pancreatic or adrenal spac e-occupying mass lesion is evident on this limited noncontrast examination. Probable 1 cm upper pole right renal cyst. Probable 8 mm lower pole left renal cyst. No urinary tract calculus or hydroureteronephrosis. There is extensive calcification of the abdominal aorta and aortic branches. No intraperitoneal or re troperitoneal or pelvic mass lesion or adenopathy or ascites is evident. Status post hysterectomy. The urinary bladder is unremarkable. No bowel obstruction or intraperitoneal free air. Diffuse osteopenia. There is loss of disc space height and prominent sclerosis and erosive changes the L3 and L4 vertebra e at the L3-4 disc space, with mild retrolisthesis. Differential diagnosis includes severe degenerati ve disc disease, spondylolisthesis diabetes. Further evaluation may be obtained by MR examination wit h gadolinium. IMPRESSION: Status post cholecystectomy Common bile duct is dilated, measuring at least 11 mm. Consider serum bilirubin and MRCP examination as clinically appropriate Bilateral renal cysts Status post hysterectomy Prominent loss of disc space and sclerosis and erosive changes of the apposing L3 and L4 vertebral mary lou dies, consistent with severe degenerative disc disease versus spondylodiscitis Reviewed, dictated and finalized at [facility]. Reviewed, dictated and finalized at [facility]. IMPRESSION: Status post cholecystectomy Common bile duct is dilated, measuring at least 11 mm. Consider serum bilirubin and MRCP examination as clinically appropriate Bilateral renal cysts Status post hysterectomy Prominent loss of disc space and sclerosis and erosive changes of the apposing L3 and L4 vertebral bodies, consistent with severe degenerative disc disease ve rsus spondylodiscitis
--- NOTE | ~2021-05-02 | CT_ITS ---
EXAMINATION: CTA abdomen pelvis EXAM DATE: 05/03/2021 13:48 INDICATION: Nausea vomiting diarrhea, right-sided abdominal pain. TECHNIQUE: Spiral CT of the abdomen and pelvis was performed following intravenous injection of 100 m L Omnipaque 350. Axial, coronal and sagittal images of the abdomen and pelvis were reviewed. Maximum intensity projection 3-D reconstructions of the arteries were created by the technologist on [employer] workstation. The dose-length product (DLP) for this examination was 169.53 mGy-cm. The exposure was tailored according to patient size (auto mA exposure control), and iterative reconstruction (ASI R) was used as additional dose reduction technique. Comparison is made to prior examination from 04/23. FINDINGS: There is moderate celiac artery origin short segment stenosis. The SMA, MACK, renal arteries are widely patent. Moderate scattered aortic and iliac arterial sclerotic disease. No aortic dissect ion or aneurysm. The liver, spleen, adrenal glands and pancreas are unremarkable. Status post cholec ystectomy probably the cause of the distended biliary system. Mild bilateral nonspecific perinephric fat stranding. The uterus is not identified and has likely been surgically resected. The bladder i s unremarkable. There is no retroperitoneal or pelvic lymphadenopathy. There are no findings to suggest appendicitis. The stomach and small bowel are unremarkable. There is colonic fluid, correlate for diarrhea. No colonic wall thickening or pneumatosis. No free intraper itoneal gas. The heart is normal in size. There are no pericardial or pleural effusions. Bibasila r dependent subsegmental atelectasis. There is moderate to severe disc disease L3-4 with sclerotic e ndplates and erosive change. Sclerosis indicates this is a chronic component, and no paraspinal absce ss or other signs of discitis but clinical possibility consider MRI exam. IMPRESSION: 1. Colonic fluid, diarrhea. 2. L3-4 severe disc disease with both erosive and chronic sclerotic change. Favor chronic disc disea se but if clinically indicated MR lumbar spine can be obtained (with contrast) if indicated. 3. Bibasilar subsegmental atelectasis. 4. Biliary dilation probably from cholecystectomy. Reviewed, dictated and finalized at location [facility]. IMPRESSION: 1. Colonic fluid, diarrhea. 2. L3-4 severe disc disease with both erosive and chronic sclerotic change. Fa vor chronic disc disease but if clinically indicated MR lumbar spine can be obt ained (with contrast) if indicated. 3. Bibasilar subsegmental atelectasis. 4. Biliary dilation probably from cholecystectomy.
[2021-05-02 23:27] VITALS: BP 158/93; PULSE 72; RESP 18; TEMP 36.8; O2SAT 96
[2021-05-02] MEDS: SODIUM CHLORIDE 0.9% IV 1,000 ML 500 ML IV CONT (23:46)
[2021-05-02] MEDS: MORPHINE SULFATE (*CRX) 4 MG/ML INJ IV PUSH (23:46)
[2021-05-02] MEDS: ONDANSETRON INJ 4 MG/2 ML VIAL IV PUSH (23:46)
--- NOTE | 2021-05-02 23:58 | ED.GENADULT ---
HPI - General Adult General Chief complaint: Abdominal Pain <Akira Morse MD - Last Filed: 05/03/21 05:21> Stated complaint: abd pain <Akira Morse MD - Last Filed: 05/03/21 05:21> Time Seen by Provider: 05/02/21 23:31 <Akira Morse MD - Last Filed: 05/03/21 05:21> History of Present Illness HPI narrative: Patient 65-year-old female presents the emergency department with chief complaint of left-sided flank pain patient states that she been having pain throughout the day she is also had some nausea and vomiting. Patient reports that for the last several days she has had some episodes of diarrhea. Patient reports she has history of end-stage renal disease and is on dialysis and goes to dialysis Monday patient reports that she is not missed any sessions of her dialysis. Patient states she sees Dr. Drew for nephrology. <Akira Morse MD - Last Filed: 05/03/21 05:21> Related Data Home medications: Home Medications Medication Instructions Recorded Confirmed acetaminophen 650 mg PO Q4-6H PRN 02/26/21 04/08/21 albuterol sulfate [Ventolin HFA] 2 inhalation INHALATION Q4H PRN 02/26/21 04/08/21 fexofenadine [Viridiana Allergy] 180 mg PO HS 02/26/21 04/08/21 trazodone 50 mg PO HS PRN 02/26/21 04/08/21 <Akira Morse MD - Last Filed: 05/03/21 05:21> Allergies/adverse reactions: Allergies Allergy/AdvReac Type Severity Reaction Status Date / Time No Known Allergies Allergy Verified 05/02/21 23:34 <Akira Morse MD - Last Filed: 05/03/21 05:21> Review of Systems Review of Systems: A 10 system review of systems was completed on the patient and is negative except for what is stated in the HPI. Nursing and ancillary documentation was reviewed. <Akira Morse MD - Last Filed: 05/03/21 05:21> [facility] Past Medical History Medical History: Medical History Brain aneurysm CKD (chronic kidney disease) stage 5, GFR less than 15 ml/min Erythropoietin deficiency anemia Essential (primary) hypertension Facial edema History of intestinal obstruction 2005, 2015 Hx of gastric ulcer (~2015) Hypothyroid Suspected COVID-19 virus infection Tobacco dependence <Akira Morse MD - Last Filed: 05/03/21 05:21> Surgical History Surgical History: Surgical History History of cholecystectomy (~1985) History of hysterectomy (~1978) Hx of removal of ovary (~2000) <Akira Morse MD - Last Filed: 05/03/21 05:21> Family History Family History: Family History Mother Family history of coronary artery disease Hypertension Father Family history of malignant neoplasm of stomach Hypertension Sibling Diabetes mellitus Hypertension <Akira Morse MD - Last Filed: 05/03/21 05:21> Social History Social History: Social History Smoking packs per day: 0.5 Smoking cigarettes per day: 10.0 Years smoked: 41 Smoking pack-years: 20.50 Smoking status: Current every day smoker Tobacco type: cigarettes Second hand tobacco smoke exposure: Yes Alcohol intake: current Drinks per week: 1 Substance use: former Substance use type: marijuana Last use: 40 years Spiritual care concerns: No <Akira Morse MD - Last Filed: 05/03/21 05:21> Exam Narrative: GENERAL: Well-appearing, well-nourished, and in moderate pain distress. HEAD: Normocephalic, atraumatic. EYES: PERRLA and EOMI. ENT: Nares clear, no rhinorrhea or epistaxis. Mucous membranes moist. NECK: Supple. CHEST: Clear to auscultation. No respiratory distress. HEART: Regular rate and rhythm. No murmur heard. Normal peripheral pulses.
[2021-05-03] VITALS (11 sets, daily range): BP systolic 93–163; BP diastolic 73–91; PULSE 73–105; RESP 16–20; TEMP 36.1–37.1; O2SAT 94–100; BMI 18.9
[2021-05-03 00:20] LABS: Basophils Absolute Auto 0.1 K/mm3 (0.0-0.1); Basophils Percent Auto 0.5 % (0.2-1.2); Hematocrit 49.7 % (37.0-47.0); Immature Granulocyte Absolute 0.11 K/mm3 (0.00-0.031); Immature Granulocyte Percent A 0.5 % (0-0.5); Lymphocytes Absolute Auto 2.92 K/mm3 (0.9-3.2); Mean Corpuscular HGB Conc 30.2 g/dl (32-36); Mean Corpuscular Hemoglobin 28.8 pg (26-34); Mean Corpuscular Volume 95.6 fl (80-100); Mean Platelet Volume 10.1 fl (7.4-10.4); Monocytes Absolute Auto 1.4 K/mm3 (0.1-0.6); Monocytes Percent Auto 6.5 % (2.6-8.5); Neutrophils Absolute Auto 16.3 K/mm3 (1.3-6.7); Neutrophils Percent Auto 78.5 % (45.5-73.1); Platelet Count Result 568 k/mm3 (150-375); Red Cell Distribution Width 15.7 % (11.5-14.5); White Blood Count 20.8 K/mm3 (4.5-10.0)
--- NOTE | 2021-05-03 00:21 | ECG_ITS ---
Measurements Intervals [place] Rate: 104 P: 78 VT: 157 QRS: 16 QRSD: 82 T: 89 QT: 347 QTc: 458 Interpretive Statements SINUS TACHYCARDIA ATRIAL PREMATURE COMPLEXES POSSIBLE LEFT ATRIAL ENLARGEMENT INCOMPLETE RIGHT BUNDLE BRANCH BLOCK NONSPECIFIC ST & T-WAVE ABNORMALITY- INF/LAT LEADS BASELINE WANDER- I, II, AVR, AVL, AVF, V6 ABNORMAL ECG Electronically Signed On 05-03-2021 8:11:03 CDT by Leeroy Nolan D.O.
[2021-05-03] MEDS: HYDROmorphone HCL INJ (*CRX) 1 MG/ML SYR IV PUSH ×4 (01:46→17:54)
[2021-05-03 01:59] LABS: Albumin Level 4.6 g/dL (3.5-5.1); Alkaline Phosphatase 83 U/L (38-126); Anion Gap 33 mmol/L (8-16); Aspartate Amino Transferase 107 U/L (14-36); Bilirubin,Total 0.5 mg/dL (0.2-1.3); Blood Urea Nitrogen 37 mg/dL (7-17); Calcium 9.4 mg/dL (8.4-10.2); Carbon Dioxide 11 mmol/L (22-30); Chloride 97 mmol/L (98-107); Estimated CRCL calculation 3 ml/min; Estimated Glomerular Filt Rate 4; Glucose 217 mg/dL (65-110); Lipase 110 U/L (23-300); Magnesium 1.9 mg/dL (1.6-2.3); Potassium 3.5 mmol/L (3.4-5.0); Sodium 141 mmol/L (137-145)
[2021-05-03 02:01] LABS: Lactic Acid Reflex 7.7 mmol/L (0.7-2.1)
[2021-05-03 02:28] LABS: Alanine Aminotransferase 44 U/L (4-35); Troponin I 0.557 ng/mL (0.000-0.034)
[2021-05-03] MEDS: SODIUM CHLORIDE 0.9% IV 1,000 ML 999 ML IV CONT (02:30)
[2021-05-03 04:21] LABS: Reflex Lactic Acid Yes or No Add Lactic
[2021-05-03 04:29] LABS: Lactic Acid Reflex 6.3 mmol/L (0.7-2.1)
--- NOTE | 2021-05-03 05:25 | PC.NURSE ---
PER BILL AT [facility], NEED TO FAX FACE SHEET TO [phone]. CALL WITH COVID RESULTS [phone]
--- NOTE | 2021-05-03 05:33 | PC.NURSE ---
FACE SHEET FAXED TO [facility].
[2021-05-03 05:50] LABS: Basophils Absolute Auto 0.1 K/mm3 (0.0-0.1); Basophils Percent Auto 0.2 % (0.2-1.2); Hematocrit 47.3 % (37.0-47.0); Immature Granulocyte Absolute 0.19 K/mm3 (0.00-0.031); Immature Granulocyte Percent A 0.8 % (0-0.5); Lymphocytes Percent Auto 6.1 % (18.3-44.2); Mean Corpuscular HGB Conc 31.7 g/dl (32-36); Mean Corpuscular Hemoglobin 29.1 pg (26-34); Mean Corpuscular Volume 91.8 fl (80-100); Mean Platelet Volume 10.2 fl (7.4-10.4); Monocytes Absolute Auto 1.2 K/mm3 (0.1-0.6); Neutrophils Absolute Auto 21.8 K/mm3 (1.3-6.7); Neutrophils Percent Auto 87.9 % (45.5-73.1); Platelet Count Result 567 k/mm3 (150-375); Red Blood Count 5.15 M/mm3 (4.2-5.4); Red Cell Distribution Width 15.8 % (11.5-14.5); White Blood Count 24.7 K/mm3 (4.5-10.0)
[2021-05-03 06:01] LABS: INR 0.9; Prothrombin Time 11.7 Seconds (11.1-14.7)
[2021-05-03 06:02] LABS: Partial Thromboplastin Time 21.5 SECONDS (22.3-36.8)
[2021-05-03 06:12] LABS: EDCOVIDSCREEN Negative (Negative)
[2021-05-03] MEDS: HEPARIN SODIUM 5,000 UNITS/ML VIAL 3500 UNITS IV PUSH (07:21)
[2021-05-03] MEDS: HEPARIN SOD/D5W 100 UNITS/ML 25,000 UNITS/250 ML BAG 8 UNITS IV CONT (07:21)
[2021-05-03 07:34] LABS: Lactic Acid 3.4 mmol/L (0.7-2.1)
--- NOTE | 2021-05-03 09:18 | PC.NURSE ---
hold NaCl 1,000 ERP VRBO, per VRBO
--- NOTE | 2021-05-03 09:26 | PC.NURSE ---
Updated pt son per phone per pt request. [phone] Yaw.
--- NOTE | 2021-05-03 09:49 | PC.NURSE ---
Spoke with Louis from dialysis, pt dialysis treatment to be held due to need for angiogram per ERP. Larger bore IV needed at this time.
--- NOTE | 2021-05-03 11:04 | PC.NURSE ---
This RN unable to identify vein for IV access needed for angiogram. Jennifer unavailable at this time. MONSE Qiu attempted via ultrasound unsuccessfully. ED charge made aware at this time. RN taking over for this RN made aware at this time.
--- NOTE | 2021-05-03 14:05 | ED.GENADULT ---
HPI - General Adult General Chief complaint: Abdominal Pain Stated complaint: abd pain Time Seen by Provider: 05/02/21 23:31 Source: patient and RN notes reviewed History of Present Illness HPI narrative: Patient is a 65 y/o female complaining of feeling dizzy and passing out about 20-30 minutes. She states that she was walking down a hallway and felt her knees were buckling and she went down. However, she was caught before she hit the ground. However, she states that her leg went different ways and now she has severe left knee pain. She describes her pain as sharp and rates it as 10/10. Movement worsens her pain. Related Data Home Medications Medication Instructions Recorded Confirmed acetaminophen 650 mg PO Q4-6H PRN 02/26/21 04/08/21 albuterol sulfate [Ventolin HFA] 2 inhalation INHALATION Q4H PRN 02/26/21 04/08/21 fexofenadine [Viridiana Allergy] 180 mg PO HS 02/26/21 04/08/21 trazodone 50 mg PO HS PRN 02/26/21 04/08/21 Allergies Allergy/AdvReac Type Severity Reaction Status Date / Time No Known Allergies Allergy Verified 05/02/21 23:34 Review of Systems Eyes: Eyes: Denies blurry vision Musculoskeletal: Musculoskeletal: Reports arthralgias PMFSH Past Medical History Medical History Brain aneurysm CKD (chronic kidney disease) stage 5, GFR less than 15 ml/min Erythropoietin deficiency anemia Essential (primary) hypertension Facial edema History of intestinal obstruction 2005, 2015 Hx of gastric ulcer (~2015) Hypothyroid Suspected COVID-19 virus infection Tobacco dependence Surgical History Surgical History History of cholecystectomy (~1985) History of hysterectomy (~1978) Hx of removal of ovary (~2000) Family History Family History Mother Family history of coronary artery disease Hypertension Father Family history of malignant neoplasm of stomach Hypertension Sibling Diabetes mellitus Hypertension Social History Social History Smoking packs per day: 0.5 Smoking cigarettes per day: 10.0 Years smoked: 41 Smoking pack-years: 20.50 Smoking status: Current every day smoker Tobacco type: cigarettes Second hand tobacco smoke exposure: Yes Alcohol intake: current Drinks per week: 1 Substance use: former Substance use type: marijuana Last use: 40 years Spiritual care concerns: No Course Vital Signs Vital signs: Vital Signs Temperature 36.8 C 05/02/21 23:27 Pulse Rate 72 05/02/21 23:27 Respiratory Rate 18 05/02/21 23:27 Blood Pressure 158/93 H 05/02/21 23:27 Pulse Oximetry 96 05/02/21 23:27 Temperature 36.8 C 05/02/21 23:27 Pulse Rate 83 05/03/21 09:18 Respiratory Rate 16 05/03/21 09:18 Blood Pressure 100/73 05/03/21 09:18 Pulse Oximetry 96 05/03/21 09:18 Medical Decision Making Vital Signs Vital Signs: Vital Signs Temperature 36.8 C 05/02/21 23:27 Pulse Rate 72 05/02/21 23:27 Respiratory Rate 18 05/02/21 23:27 Blood Pressure 158/93 H 05/02/21 23:27 Pulse Oximetry 96 05/02/21 23:27 Temperature 36.8 C 05/02/21 23:27 Pulse Rate 83 05/03/21 09:18 Respiratory Rate 16 05/03/21 09:18 Blood Pressure 100/73 05/03/21 09:18 Pulse Oximetry 96 05/03/21 09:18 Lab Data Result diagrams: 05/03/21 05:45 05/03/21 01:09 Labs: Lab Results 05/02/21 05/03/21 05/03/21 Range/Units 23:47 00:14 01:09 WBC 20.8 H (4.5-10.0) K/mm3 RBC 5.20 (4.2-5.4) M/mm3 Hgb 15.0 D (12.0-15.0) g/dL Hct 49.7 H (37.0-47.0) % MCV 95.6 (80-100) fl MCH 28.8 (26-34) pg MCHC 30.2 L (32-36) g/dl RDW 15.7 H (11.5-14.5) % Plt Count 568 H D (150-375) k/mm3 MPV 10.1 (7.4-10.4) fl Immature Gran % (Auto) 0.5 (0-0.5) % Neut % (Auto) 78
[2021-05-03] MEDS: metroNIDAZOLE 500 MG/ISO 100ML 500 MG/100 ML BAG 100 MG IVPB (14:44)
--- NOTE | 2021-05-03 15:50 | PM.CNGS ---
Assessment and Plan Assessment and plan (1) Colitis: Code(s): K52.9 - Noninfective gastroenteritis and colitis, unspecified Status: Acute Assessment and Plan: CT scan and CTA abdomen/pelvis were reviewed and discussed with the patient in detail. she has evidence of diarrhea, no significant wall thickening or pneumatosis. Also, no obvious vascular occlusions on the CTA that would necessitate the need for vascular evaluation. With the leukocytosis and lactic acidosis, the concern is ischemic colitis. The patient seems to be responding well to current IV fluid hydration with improvement in her lactic acidosis. She appears hemodynamically stable and her abdominal pain is improving as well. We would recommend to continue with medical management for now and close monitoring. Continue broad-spectrum IV antibiotics, IV fluids, and PRN analgesics. Could consider stool studies if diarrhea continues. With the patient's multiple co-morbidities, she would be a high risk surgical candidate. We will continue to monitor the patient closely with serial abdominal exams and trend her labs. Thank you for allowing us to see the patient in consultation and we will continue to follow along with you. (2) Leukocytosis: Qualifiers: Leukocytosis type: unspecified Qualified Code(s): D72.829 - Elevated white blood cell count, unspecified Code(s): D72.829 - Elevated white blood cell count, unspecified Status: Acute Assessment and Plan: See plan above. Trend labs. (3) Lactic acidosis: Code(s): E87.2 - Acidosis Status: Acute Assessment and Plan: Lactic acid 7.7 on admission. This seems to be improving quickly with IV fluid hydration. Could be related to severe dehydration. See plan above. Trend labs. (4) Dehydration: Code(s): E86.0 - Dehydration Status: Acute Assessment and Plan: Labs suggest hemoconcentration and dehydration. Continue IV fluid hydration and trend labs. This could be gastroenteritis with severe dehydration. She does have two close contacts in her household with similar symptoms in the past week. (5) ESRD (end stage renal disease): Code(s): N18.6 - End stage renal disease Status: Acute Assessment and Plan: She has a right IJ tunneled dialysis catheter and receives hemodialysis on Monday, Monday, and Monday. Nephrology will be consulted. (6) Essential (primary) hypertension: Code(s): I10 - Essential (primary) hypertension Status: Chronic (7) Hepatitis C antibody positive in blood: Onset Date: ~02/2021 Code(s): R76.8 - Other specified abnormal immunological findings in serum Status: Acute Assessment and Plan: Recently diagnosed. Scheduled to see a Nutrition Services Manager at [facility] on 05/08/21. (8) History of CVA (cerebrovascular accident): Code(s): Z86.73 - Personal history of transient ischemic attack (TIA), and cerebral infarction without residual deficits Status: Acute Assessment and Plan: February 2021 (9) Tobacco dependence: Code(s): F17.200 - Nicotine dependence, unspecified, uncomplicated Status: Acute Assessment and Plan: Encouraged cessation. Additional Plan I have discussed the patient's case and plan of care with Dr. Cotton. History of Present Illness Consult details Consult date: 05/03/21 Reason for consult: other (Colitis, leukocytosis and lactic acidosis) Requesting physician: Haley Hudson MD Narrative: This is a 65-year-old female with a history of end-stage renal disease on hemodialysis, recent CVA in February 2021, hypertension, and hepatitis C, who presented to the emergency department with weakness, vomiting, and diarrhea. She was admitted in February of 2021 and started on hemodialysis and had an acute CVA. She was discharged home and has been going to dialysis Monday, Monday, and Monday. She reports that 2 days ago she had innumerable episodes of liq
--- NOTE | 2021-05-03 15:56 | ADMGEN ---
This patient, Madison Santos, was admitted to [facility] Surg Room 327-01 at 1555. Patient/family oriented to hospital policies and general routines including ID bracelet, bed and alarms, visiting hours, pain management, procedures, bathroom and other care routines, personal items, smoking policy, room service/diet, and visiting hours. Information on how to activate the Rapid Response Team has been discussed. Patient/Family are encouraged to report perceived risks to care and to ask questions if they do not understand what they are told or what they should do.
--- NOTE | 2021-05-03 17:23 | PM.CNNEP ---
Assessment and Plan Assessment and plan (1) ESRD (end stage renal disease): Code(s): N18.6 - End stage renal disease Status: Chronic Assessment and Plan: HD due to day but given lateness of the day, will proceed with dialysis tomorrow follow electrolytes, volume status, and clearance will eventually transition back to M/W/F schedule (2) Colitis: Code(s): K52.9 - Noninfective gastroenteritis and colitis, unspecified Status: Acute Assessment and Plan: suspected based on evidence to date follow cultures on IV antibiotics (3) Lactic acidosis: Code(s): E87.2 - Acidosis Status: Acute Assessment and Plan: noted on admission and improving with fluid resuscitation follow trend (4) Essential (primary) hypertension: Code(s): I10 - Essential (primary) hypertension Status: Chronic Assessment and Plan: difficult to control at baseline resume home medications follow trend of hemodynamics (5) Anemia: Code(s): D64.9 - Anemia, unspecified Status: Acute Assessment and Plan: due to ESRD Epogen with HD follow H/H Will continue to follow. History of Present Illness Reason for Consult Consult date: 05/03/21 Reason for consult: end stage renal disease Chief Complaint Chief complaint: Sepsis/colitis History of Present Illness Narrative: The patient is a 65-year-old female with a past medical history as outlined below who presented to [facility] Emergency room with complaints of abdominal pain. The patient states that approximately 2 days ago she had innumerable episodes of diarrhea that persisted throughout the day. Eventually, due to the persistence of the problem she took 2 tablets of Imodium and this did seem to help to some degree but the diarrhea Eventually returned. Yesterday, along with the diarrhea, she also developed episodes of nausea in association with vomiting. Other symptoms included chills and diaphoresis with the sudden onset of acute right-sided abdominal pain that radiated to her right flank that seem to occur with the vomiting. due to all these symptoms, she was unable to eat or keep anything down whether to be liquids or solid food. Given the progressive nature of the symptoms and no relief with conservative therapy, she presented to [facility] ER for further evaluation. Workup and evaluation in the ER Demonstrated the patient to be hemodynamically stable but unclear distress. Routine blood test demonstrated labs consistent with her known history of end-stage renal disease but her CBC was concerning [place] [address] in association with a lactic acidosis of 7.7. A CT scan of her abdomen/pelvis without contrast did not really find any acute findings so she underwent another CT scan of her abdomen pelvis with IV contrast as there was some concern for ischemic colitis given her leukocytosis and lactic acidosis. The blood vessels in her abdomen appear to be intact although there was some suggestion of mild stenosis at the celiac artery. She was initiated on IV fluid resuscitation and IV antibiotics which did show improvement in her lactic acidosis and the patient was subsequently admitted to the hospital for further evaluation and therapy. Since her admission, her lactic acidosis has resolved and she has already been seen in consultation by General surgery who do not feel any further surgical intervention is required at this time other than continued supportive measures at of already be instituted. There was some discussion about a possible transfer to [facility] given her initial findings but given her improvement with therapy as noted above, this plan was canceled. Renal consultation was requested due to her end-stage renal disease. The patient normally dialyzes on a Monday schedule at [facility] under the care of
[2021-05-03] MEDS: CENTRAL LINE FLUSH 10 ML IV PUSH ×2 (19:00→20:43)
--- NOTE | 2021-05-03 19:28 | PM.IMHP ---
H&P: HPI History of Present Illness Date/Time: 05/03/21 19:28 this is a 65-year-old female patient who has a history of end-stage renal disease dialysis on Monday. The patient has a history small-bowel obstruction x2 with small-bowel resection. The patient has been having diarrhea. Her white count was noted to be 24.7 today. And a up from 20.8 from earlier this morning. The patient still complains of abdominal discomfort. Patient's BUN is 37 creatinine 11.6. Nephrology has been consulted and has already seen the patient. The patient has a temporary hemodialysis catheter in right upper chest. The patient also had a central line placed in the emergency room and had been bleeding gangrenous site without avail. Lactic acid lactic acid 7.7 then 6.3 and now 3.4. The patient was given morphine, Zofran, IV fluids, Dilaudid, heparin push, Zosyn, and Flagyl in the emergency room. The patient still continues to have diarrhea and continue to complain of abdominal pain. The patient had been on a heparin drip for the possibility of ischemic bowel. [facility] had been notified and agreed to accept the patient however there are no beds available. I repeat CT scan was read as the following.1. Colonic fluid, diarrhea. 2. L3-4 severe disc disease with both erosive and chronic sclerotic change. Favor chronic disc disease but if clinically indicated MR lumbar spine can be obtained (with contrast) if indicated. 3. Bibasilar subsegmental atelectasis. 4. Biliary dilation probably from cholecystectomy. The patient started on Flagyl and Zosyn. The patient is being admitted to inpatient services on the date of service of 05/03/2021 Chief Complaint: Abdominal pain Review of Systems Review of Systems: All systems reviewed & are unremarkable except as noted in HPI and below Constitutional: Constitutional: Reports as per HPI and Reports no additional constitutional complaints Eyes: Eyes: Reports as per HPI and Reports no additional eye complaints ENT: Reports system reviewed and no additional complaints, except as documented and Reports Normal hearing present Cardiovascular: Cardiovascular: Reports no additional cardiovascular complaints Respiratory: Respiratory: Reports no additional respiratory complaints and Reports no additional respiratory complaints Gastrointestinal: Gastrointestinal: Reports as per HPI and Reports no additional gastrointestinal complaints Musculoskeletal: Musculoskeletal: Reports no additional musculoskeletal complaints Integumentary/Breasts: Skin/Breast: Reports system reviewed and no additional complaints, except as docu and Reports as per HPI Neurologic: Reports system reviewed and no additional complaints, except as documented, Reports as per HPI and Reports Normal hearing present Psychiatric: Psychiatric: Reports no additional psychiatric complaints and Reports as per HPI Endocrine: Endocrine: Reports no additional endocrine complaints Hematologic/Lymphatic: Hematologic/Lymphatic: Reports no additional hematologic/lymphatic complaints Allergic/Immunologic: Allergic/Immunologic: Reports no additional allergic/immunologic complaints [facility] Past Medical History Medical History (Updated 05/03/21 @ 16:20 by VERONICA Pina) Brain aneurysm CKD (chronic kidney disease) stage 5, GFR less than 15 ml/min Erythropoietin deficiency anemia Essential (primary) hypertension Facial edema History of intestinal obstruction 2005, 2015 Hx of gastric ulcer (~2015) Hypothyroid Suspected COVID-19 virus infection Tobacco dependence Surgical History Surgical History (Updated 05/03/21 @ 19:53 by La Torres NP) History of cholecystectomy (~1985) History of exploratory laparotomy x 2 for bowel obstruction in the past (2005 & 2015) History of hysterectomy (~1978) Hx of removal of ovary (~2000) Family History Family History Mother Family history of c
[2021-05-03] MEDS: NICOTINE (*PBKC) 14 MG PATCH 1 PATCH TRANSDERM (20:25)
[2021-05-03] MEDS: FIDAXOMICIN 200 MG TABLET PO (20:25)
[2021-05-03] MEDS: traZODone HCL 50 MG TABLET PO (20:25)
[2021-05-03] MEDS: LORATADINE 10 MG TABLET PO (20:25)
[2021-05-03] MEDS: cloNIDine HCL 0.2 MG TABLET PO (20:25)
[2021-05-04] VITALS (18 sets, daily range): BP systolic 134–187; BP diastolic 78–108; PULSE 62–91; RESP 16–20; TEMP 36.3–37.1; O2SAT 98–100; BMI 18.9
[2021-05-04] MEDS: HYDROmorphone HCL INJ (*CRX) 1 MG/ML SYR 0.5 MG IV PUSH ×2 (06:05→22:03)
[2021-05-04] MEDS: LEVOTHYROXINE SODIUM 125 MCG TABLET PO (06:05)
[2021-05-04 06:45] LABS: Basophils Percent Auto 0.6 % (0.2-1.2); Eosinophils Percent Auto 0.3 % (0-4.4); Hematocrit 29.8 % (37.0-47.0); Immature Granulocyte Absolute 0.02 K/mm3 (0.00-0.031); Immature Granulocyte Percent A 0.3 % (0-0.5); Mean Corpuscular HGB Conc 33.6 g/dl (32-36); Mean Corpuscular Hemoglobin 28.4 pg (26-34); Mean Corpuscular Volume 84.7 fl (80-100); Mean Platelet Volume 10.6 fl (7.4-10.4); Monocytes Absolute Auto 0.6 K/mm3 (0.1-0.6); Monocytes Percent Auto 9.2 % (2.6-8.5); Neutrophils Absolute Auto 4.2 K/mm3 (1.3-6.7); Neutrophils Percent Auto 63.6 % (45.5-73.1); Platelet Count Result 307 k/mm3 (150-375); Red Blood Count 3.52 M/mm3 (4.2-5.4); Red Cell Distribution Width 15.1 % (11.5-14.5); White Blood Count 6.6 K/mm3 (4.5-10.0)
[2021-05-04 06:49] LABS: Lactic Acid Reflex 0.8 mmol/L (0.7-2.1)
[2021-05-04 06:51] LABS: Alanine Aminotransferase 24 U/L (4-35); Alkaline Phosphatase 46 U/L (38-126); Anion Gap 13 mmol/L (8-16); Aspartate Amino Transferase 89 U/L (14-36); Bilirubin,Total 0.4 mg/dL (0.2-1.3); Blood Urea Nitrogen 47 mg/dL (7-17); Carbon Dioxide 21 mmol/L (22-30); Chloride 101 mmol/L (98-107); Estimated CRCL calculation 3 ml/min; Estimated Glomerular Filt Rate 4; Glucose 103 mg/dL (65-110); Lactate Dehydrogenase 1196 U/L (313-618); Magnesium 1.6 mg/dL (1.6-2.3); Phosphorus 9.2 mg/dL (2.5-4.5); Potassium 4.3 mmol/L (3.4-5.0); Sodium 135 mmol/L (137-145)
--- NOTE | 2021-05-04 11:25 | PC.NURSE ---
Pt transferred to Dialysis via bed at 1126.
--- NOTE | 2021-05-04 12:08 | PM.PNGS ---
Progress Note: A&P Assessment and Plan (1) Colitis: Code(s): K52.9 - Noninfective gastroenteritis and colitis, unspecified Status: Acute Assessment and Plan: Patient clinically improving. Leukocytosis and lactic acidosis resolved. Continue medical management. No indication for surgical intervention. Will sign off at this point. Please let us know if there are any future surgical needs. (2) Leukocytosis: Qualifiers: Leukocytosis type: unspecified Qualified Code(s): D72.829 - Elevated white blood cell count, unspecified Code(s): D72.829 - Elevated white blood cell count, unspecified Status: Acute Assessment and Plan: Resolved (3) Lactic acidosis: Code(s): E87.2 - Acidosis Status: Acute Assessment and Plan: Resolved with medical management/IV fluid hydration. (4) Dehydration: Code(s): E86.0 - Dehydration Status: Acute Assessment and Plan: Improving. (5) ESRD (end stage renal disease): Code(s): N18.6 - End stage renal disease Status: Chronic Assessment and Plan: She has a right IJ tunneled dialysis catheter and receives hemodialysis on Monday, Monday, and Monday. Nephrology will be consulted. Additional Plan I have discussed the plan of care with Dr. Cotton. Subjective Subjective Date/Time Seen: 05/04/21 10:08 Patient reports: no new complaints, feels better, pain is less, tolerating a regular diet, flatus, diarrhea and afebrile Interval history: Patient seen and examined this morning. She reports feeling much better today than yesterday. Still having some mild right-sided abdominal pain, but much improved. No nausea or vomiting. Has had 2 more episodes of diarrhea overnight. No other complaints at this time. Review of Systems Review of Systems: All systems reviewed & are unremarkable except as noted in HPI and below Constitutional: Constitutional: Reports as per HPI and Reports no additional constitutional complaints Gastrointestinal: Gastrointestinal: Reports as per HPI and Reports no additional gastrointestinal complaints Exam Const: General: comfortable, no acute distress and awake Nutritional Appearance: thin GI: Inspection: normal to inspection and non-distended GI Palp: Yes Soft to palpation, Yes Tenderness to palpation present (GI) (RUQ/RLQ, improved), No Guarding due to palpation present (GI), Yes Hernia present (small soft reducible ventral hernia in the mid lower abd) and No Rebound tenderness present Auscultation: normal bowel sounds Neuro: General: moves all extremities and no focal motor deficits Extrem: General: no clubbing, cyanosis or edema Psych: Mental Status: mental status grossly normal Insight: Good insight present (Psych) Judgement: Good judgement present (Psych) Objective Data Vital Signs Vital Signs: Vital Signs - 24 hr 05/03/21 14:45 05/03/21 16:28 05/03/21 16:32 Temperature 98.7 F Pulse Rate 73 75 Respiratory Rate 20 18 Blood Pressure 111/74 134/80 Pulse Oximetry 99 99 100 05/03/21 20:35 05/03/21 22:00 05/04/21 00:05 Temperature 96.9 F L Pulse Rate 75 76 76 Respiratory Rate 18 18 Blood Pressure 144/91 H Pulse Oximetry 99 99 05/04/21 04:00 05/04/21 06:00 05/04/21 08:00 Temperature 97.8 F Pulse Rate 64 64 Respiratory Rate 18 Blood Pressure 144/92 H Pulse Oximetry 100 100 Intake/Output Intake/Output: Intake & Output 05/01/21 05/02/21 05/03/21 05/04/21 23:59 23:59 23:59 23:59 Intake Total 3060 510 Output Total 0 Balance 3060 510 Meds/Results Medications: Active Medications Generic Name Dose Route Start Last Admin Trade Name Freq PRN Reason Stop Dose Admin Acetaminophen 650 mg 05/03/21 19:46 Acetaminophen 325 Mg Tablet PO Q4-6H PRN Pain (Scale Score 1-3) Atorvastatin Calcium 40 mg 05/04/21 09:00 Atorvastatin 40 Mg Tablet PO DAILY [facility] Clonidine HCl 0.2 mg 05/03/21 19:55
--- NOTE | 2021-05-04 12:20 | PM.PNNEP ---
Progress Note: A&P Assessment and Plan (1) ESRD (end stage renal disease): Code(s): N18.6 - End stage renal disease Status: Chronic Assessment and Plan: HD today and again tomorrow to resume outpatient M/W/F dialysis schedule follow electrolytes, volume status, and clearance (2) Colitis: Code(s): K52.9 - Noninfective gastroenteritis and colitis, unspecified Status: Acute Assessment and Plan: suspected based on evidence to date s/p IVF resuscitation follow cultures on IV antibiotics advance diet as tolerated (3) Lactic acidosis: Code(s): E87.2 - Acidosis Status: Acute Assessment and Plan: noted on admission and resolved s/p IV fluid resuscitation follow trend (4) Essential (primary) hypertension: Code(s): I10 - Essential (primary) hypertension Status: Chronic Assessment and Plan: difficult to control at baseline but stable at this time resume home medications follow trend of hemodynamics (5) Anemia: Code(s): D64.9 - Anemia, unspecified Status: Acute Assessment and Plan: due to ESRD Epogen with HD follow H/H Will continue to follow. Subjective Date/time seen: 05/04/21 12:20 Tolerating dialysis at the time of my visit (seen on HD at 12:15PM); feels significantly better today in comparison to admission; no abdominal pain at this time; tolerating oral intake a bit better today; no issues or events overnight or earlier this AM. Exam Narrative: General: WD/WN AA female in NAD Heart: normal S1 and S2; no rub Lungs: clear to auscultation Abdomen: soft, nontender, nondistended, positive bowel sounds Extremities: no cyanosis or clubbing; no edema Skin: warm and dry Objective Data Vital Signs Vital Signs: Vital Signs Temp Pulse Resp BP Pulse Ox 05/04/21 08:00 100 05/04/21 06:00 36.6 C 64 18 144/92 H 100 05/04/21 04:00 64 05/04/21 00:05 76 05/03/21 22:00 36.1 C L 76 18 144/91 H 99 05/03/21 20:35 75 18 99 05/03/21 16:32 100 05/03/21 16:28 37.1 C 75 18 134/80 99 05/03/21 14:45 73 20 111/74 99 Intake/Output Intake/Output: Intake & Output 05/01/21 05/02/21 05/03/21 05/04/21 23:59 23:59 23:59 23:59 Intake Total 3060 510 Output Total 0 Balance 3060 510 Meds/Results Medications: Active Medications Generic Name Dose Route Start Last Admin Trade Name Freq PRN Reason Stop Dose Admin Acetaminophen 650 mg 05/03/21 19:46 Acetaminophen 325 Mg Tablet PO Q4-6H PRN Pain (Scale Score 1-3) Atorvastatin Calcium 40 mg 05/04/21 09:00 Atorvastatin 40 Mg Tablet PO DAILY [facility] Clonidine HCl 0.2 mg 05/03/21 19:55 05/03/21 20:25 Clonidine Hcl 0.2 Mg Tablet PO 0.2 mg TID [facility] Administration Epoetin Phi-epbx 10,000 units 05/04/21 19:10 Epoetin Phi-Epbx 10,000 Units/Ml Vial IV PUSH 05/04/21 19:11 ONCE ONE Fidaxomicin 200 mg 05/03/21 21:00 05/03/21 20:25 Fidaxomicin 200 Mg Tablet PO 05/13/21 20:59 200 mg Q12HR [facility] Administration Hydromorphone HCl 0.5 mg 05/03/21 19:45 05/04/21 06:05 Hydromorphone Hcl Inj (*Crx) 1 Mg/Ml Syr IV PUSH 0.5 mg Q3H PRN Administration Pain Rated 7-10 Piperacillin Sod/Tazobactam 50 mls @ 50 mls/hr 05/03/21 18:00 Sod 0.75 gm/ Dextrose IVPB [id number] [facility] Piperacillin Sod/Tazobactam Sod 2.25 gm in 50 mls @ 100 mls/hr 05/03/21 16:00 05/04/21 07:57 Zosyn 2.25 Gm/D5w 50 Ml IVPB 100 mls/hr Q8H [facility] Administration Albumin Human 50 mls @ 999 mls/hr 05/04/21 07:10 Albutein IVPB 06/03/21 07:09 Q10M PRN HYPOTENSION Levothyroxine Sodium 125 mcg 05/04/21 06:30 05/04/21 06:05 Levothyroxine Sodium 125 Mcg Tablet PO 125 mcg DAILY@0630 [facility] Administration Loratadine 10 mg 05/03/21 21:00 05/03/21 20:25 Loratadine 10 Mg Tablet PO 10 mg HS [facility] Administration Losartan Potassium 100 mg
[2021-05-04] MEDS: EPOETIN ALFA-EPBX 10,000 UNITS/ML VIAL 10000 UNITS IV PUSH (13:15)
--- NOTE | 2021-05-04 13:19 | PM.IMPN ---
Progress Note: A&P Assessment and Plan (1) Sepsis: Code(s): A41.9 - Sepsis, unspecified organism Status: Acute Assessment and Plan: The patient is a 65-year-old woman with a history of end-stage renal disease, who presented to the emergency room with diarrhea and dehydration. On arrival to patient was found to [place] [id number], elevated lactic acid at 7.7, with hemoconcentrated H&H due to dehydration, metabolic acidosis serum bicarb of 11. CTA abdomen pelvis showed colonic fluid, diarrhea. No signs of any ischemic bowel with Angiography imaging. She was admitted into the hospital for sepsis, possible colitis due to diarrhea and colonic fluid on CT, concern for ischemic colitis due to elevated lactic of 7. She received IV fluid hydration and the admitting provider actually called [facility] and had her excepted for transfer but we were waiting for a bed. At this time the patient is feeling much better with IV fluid hydration. She has only had 2 bowel movements today and is feeling much better. She does not want to be transferred to [facility] at this time. Her labs improved with a normal white blood cell count, stable H&H back to her baseline, she is receiving dialysis at this time which will improve her electrolytes. Will recheck labs in the morning and see how she is feeling. Could potentially discharge tomorrow if feeling well. Continue monitoring. (2) Colitis: Code(s): K52.9 - Noninfective gastroenteritis and colitis, unspecified Status: Acute Assessment and Plan: See above. Blood cultures are negative. Patient was started on Flagyl Zosyn and daptomycin. Stool cultures were never collected. (3) ESRD (end stage renal disease): Code(s): N18.6 - End stage renal disease Status: Chronic Assessment and Plan: Patient has dialysis Monday and Monday. She has a temporary catheter dialysis in the right upper chest. Patient stated she is going to get AV fistula in the near future. Nephrology consulted. Patient is having dialysis today. (4) Brain aneurysm: Code(s): I67.1 - Cerebral aneurysm, nonruptured Status: Acute Assessment and Plan: The patient stated this is being monitored outpatient. (5) Chronic kidney disease (CKD), stage V: Code(s): N18.5 - Chronic kidney disease, stage 5 Status: Chronic Assessment and Plan: Patient has dialysis on Monday and Monday. Dialysis now. Continue with her routine medications. (6) Anemia in chronic renal disease: Qualifiers: Chronic kidney disease stage: stage 5, not on chronic dialysis Qualified Code(s): N18.5 - Chronic kidney disease, stage 5; D63.1 - Anemia in chronic kidney disease Code(s): N18.9 - Chronic kidney disease, unspecified; D63.1 - Anemia in chronic kidney disease Status: Acute Assessment and Plan: Appears to be chronic and stable. Hemoglobin 11, hematocrit 33%. Continue to monitor. (7) Hypothyroid: Qualifiers: Hypothyroidism type: acquired Qualified Code(s): E03.9 - Hypothyroidism, unspecified Code(s): E03.9 - Hypothyroidism, unspecified Status: Chronic Assessment and Plan: TSH normal. Continue with levothyroxine. (8) Uncontrolled hypertension: Code(s): I10 - Essential (primary) hypertension Status: Acute Assessment and Plan: I am going to hold diuretics as the patient is having diarrhea. Continue with Cozaar, Procardia, and Catapres. (9) Dyslipidemia: Code(s): E78.5 - Hy
[2021-05-04] MEDS: NIFEdipine 30 MG TAB.ER.24 60 MG PO (15:21)
[2021-05-04] MEDS: ATORVASTATIN 40 MG TABLET PO (15:21)
[2021-05-04] MEDS: cloNIDine HCL 0.2 MG TABLET PO ×2 (15:21→18:04)
[2021-05-04] MEDS: LOSARTAN POTASSIUM 100 MG TABLET PO (15:22)
[2021-05-04] MEDS: CENTRAL LINE FLUSH 10 ML IV PUSH ×3 (15:23→22:04)
[2021-05-04 16:08] LABS: Hematocrit 33.2 % (37.0-47.0); Hemoglobin 11.1 g/dL (12.0-15.0)
[2021-05-04 16:55] LABS: Troponin I 0.495 ng/mL (0.000-0.034)
[2021-05-04 17:27] LABS: Hepatitis B Surface Antigen Negative (Negative)
[2021-05-04 17:45] LABS: Hepatitis B Surface Anti Res Negative
[2021-05-04] MEDS: FIDAXOMICIN 200 MG TABLET PO (20:10)
[2021-05-04] MEDS: LORATADINE 10 MG TABLET PO (20:18)
[2021-05-04 20:25] LABS: Hematocrit 31.9 % (37.0-47.0); Hemoglobin 10.8 g/dL (12.0-15.0)
[2021-05-04 21:06] LABS: IFOB Positive Control Positive; Immunochemical Fecal Occult Bl Negative (N)
[2021-05-05] VITALS (23 sets, daily range): BP systolic 106–161; BP diastolic 64–87; PULSE 55–89; RESP 16–20; TEMP 36–37; O2SAT 99–100
[2021-05-05 04:45] LABS: Hematocrit 30.1 % (37.0-47.0); Hemoglobin 10.1 g/dL (12.0-15.0); Mean Corpuscular HGB Conc 33.6 g/dl (32-36); Mean Corpuscular Hemoglobin 28.3 pg (26-34); Mean Corpuscular Volume 84.3 fl (80-100); Platelet Count Result 253 k/mm3 (150-375); Red Blood Count 3.57 M/mm3 (4.2-5.4); Red Cell Distribution Width 14.7 % (11.5-14.5); White Blood Count 5.8 K/mm3 (4.5-10.0)
[2021-05-05 05:14] LABS: Albumin Level 2.9 g/dL (3.5-5.1); Anion Gap 3 mmol/L (8-16); Blood Urea Nitrogen 21 mg/dL (7-17); Calcium 7.7 mg/dL (8.4-10.2); Carbon Dioxide 31 mmol/L (22-30); Chloride 102 mmol/L (98-107); Estimated CRCL calculation 6 ml/min; Estimated Glomerular Filt Rate 8; Glucose 111 mg/dL (65-110); Phosphorus 3.5 mg/dL (2.5-4.5); Potassium 3.5 mmol/L (3.4-5.0); Sodium 136 mmol/L (137-145)
[2021-05-05] MEDS: LEVOTHYROXINE SODIUM 125 MCG TABLET PO (06:00)
[2021-05-05] MEDS: CENTRAL LINE FLUSH 10 ML IV PUSH ×4 (06:00→18:11)
[2021-05-05] MEDS: cloNIDine HCL 0.2 MG TABLET PO ×3 (08:10→18:10)
[2021-05-05] MEDS: LOSARTAN POTASSIUM 100 MG TABLET PO (08:10)
[2021-05-05] MEDS: FIDAXOMICIN 200 MG TABLET PO (08:10)
[2021-05-05] MEDS: ATORVASTATIN 40 MG TABLET PO (08:10)
[2021-05-05] MEDS: NIFEdipine 30 MG TAB.ER.24 60 MG PO (08:11)
[2021-05-05] MEDS: NICOTINE (*PBKC) 14 MG PATCH 1 PATCH TRANSDERM (08:11)
[2021-05-05] MEDS: HYDROmorphone HCL INJ (*CRX) 1 MG/ML SYR 0.5 MG IV PUSH ×2 (08:15→22:18)
[2021-05-05 10:10] LABS: Magnesium 1.7 mg/dL (1.6-2.3)
--- NOTE | 2021-05-05 10:15 | PM.IMPN ---
Progress Note: A&P Assessment and Plan (1) Sepsis: Code(s): A41.9 - Sepsis, unspecified organism Status: Acute Assessment and Plan: The patient is a 65-year-old woman with a history of end-stage renal disease, who presented to the emergency room with diarrhea and dehydration. On arrival to patient was found to be [place] [id number], elevated lactic acid at 7.7, with hemoconcentrated H&H due to dehydration, metabolic acidosis serum bicarb of 11. CTA abdomen pelvis showed colonic fluid, diarrhea. No signs of any ischemic bowel with Angiography imaging. She was admitted into the hospital for sepsis, possible colitis due to diarrhea and colonic fluid on CT, concern for ischemic colitis due to elevated lactic of 7. She received IV fluid hydration and the admitting provider actually called [facility] and had her excepted for transfer but we were waiting for a bed. At this time, patients vitals and labs are at her baseline. She continued to have multiple bowel movements last evening and then stated she was given a pill which stopped her bowel movements. There is no note of her receiving any Imodium in the computer system. She does not report passing any gas or bowel movements today. She feels like she is bloated and having lower quadrant abdominal pains. Will get an abdominal obstructive series based on her symptoms She does not want to be transferred to [facility] at this time. Her labs improved with a normal white blood cell count, stable H&H back to her baseline, she is receiving dialysis at this time which will improve her electrolytes. Continue monitoring. (2) Colitis: Code(s): K52.9 - Noninfective gastroenteritis and colitis, unspecified Status: Acute Assessment and Plan: See above. Blood cultures are negative. Will switch patient to oral Augmentin 500 mg daily and an extra dose with dialysis, probiotic and banatrol BID Stool cultures were collected yesterday and sent. Pending results. (3) ESRD (end stage renal disease): Code(s): N18.6 - End stage renal disease Status: Chronic Assessment and Plan: Patient has dialysis Monday and Monday. She has a temporary catheter dialysis in the right upper chest. Patient stated she is going to get AV fistula in the near future. Nephrology consulted. Patient had dialysis 05/04/21 (4) Brain aneurysm: Code(s): I67.1 - Cerebral aneurysm, nonruptured Status: Acute Assessment and Plan: The patient stated this is being monitored outpatient. (5) Chronic kidney disease (CKD), stage V: Code(s): N18.5 - Chronic kidney disease, stage 5 Status: Chronic Assessment and Plan: Patient has dialysis on Monday and Monday. Dialysis now. Continue with her routine medications. (6) Anemia in chronic renal disease: Qualifiers: Chronic kidney disease stage: stage 5, not on chronic dialysis Qualified Code(s): N18.5 - Chronic kidney disease, stage 5; D63.1 - Anemia in chronic kidney disease Code(s): N18.9 - Chronic kidney disease, unspecified; D63.1 - Anemia in chronic kidney disease Status: Acute Assessment and Plan: Appears to be chronic and stable. Hemoglobin 11, hematocrit 33%. Continue to monitor. (7) Hypothyroid: Qualifiers: Hypothyroidism type: acquired Qualified Code(s): E03.9 - Hypothyroidism, unspecified Code(s): E03.9 - Hypothyroidism, unspecified Status: Chronic Assessment and Plan: TSH normal. Continue with levothyroxine. (8) Uncontrolled hypertension: Code(s): I10 - E
[2021-05-05] MEDS: SACCHAROMYCES BOULARDII 250 MG CAPSULE PO ×2 (11:14→18:10)
[2021-05-05 12:47] LABS: Hematocrit 30.6 % (37.0-47.0); Hemoglobin 10.2 g/dL (12.0-15.0)
--- NOTE | 2021-05-05 16:57 | PM.PNNEP ---
Progress Note: A&P Assessment and Plan (1) ESRD (end stage renal disease): Code(s): N18.6 - End stage renal disease Status: Chronic Assessment and Plan: HD today to resume outpatient M/W/F dialysis schedule follow electrolytes, volume status, and clearance (2) Colitis: Code(s): K52.9 - Noninfective gastroenteritis and colitis, unspecified Status: Acute Assessment and Plan: suspected based on evidence to date s/p IVF resuscitation follow cultures on antibiotics advance diet as tolerated (3) Lactic acidosis: Code(s): E87.2 - Acidosis Status: Acute Assessment and Plan: noted on admission and resolved s/p IV fluid resuscitation follow trend (4) Essential (primary) hypertension: Code(s): I10 - Essential (primary) hypertension Status: Chronic Assessment and Plan: difficult to control at baseline but stable at this time resume home medications follow trend of hemodynamics (5) Anemia: Code(s): D64.9 - Anemia, unspecified Status: Acute Assessment and Plan: due to ESRD Epogen with HD follow H/H Will continue to follow. Subjective Date/time seen: 05/05/21 16:57 Tolerating dialysis at the time of my visit (seen on HD at 4:45PM); no abdominal pain but had several bowel movement yesterday and overnight; no apparent distress currently; able to eat and drink to some extent. Exam Narrative: General: WD/WN AA female in NAD Heart: normal S1 and S2; no rub Lungs: clear to auscultation Abdomen: soft, nontender, nondistended, positive bowel sounds Extremities: no cyanosis or clubbing; no edema Skin: warm and intact Objective Data Vital Signs Vital Signs: Vital Signs Temp Pulse Resp BP Pulse Ox 05/05/21 16:30 64 123/76 05/05/21 16:15 59 L 137/82 05/05/21 16:00 59 L 139/82 05/05/21 15:45 55 L 126/78 05/05/21 15:30 57 L 126/72 05/05/21 15:10 61 112/69 05/05/21 15:00 36.8 C 67 16 119/73 05/05/21 14:00 36.9 C 66 16 117/78 100 05/05/21 12:00 73 05/05/21 08:00 68 05/05/21 06:00 36.6 C 73 18 106/64 100 05/05/21 04:00 76 05/05/21 00:00 75 05/04/21 22:00 36.3 C L 78 18 146/78 H 100 05/04/21 20:00 76 05/04/21 18:16 134/79 Intake/Output Intake/Output: Intake & Output 05/02/21 05/03/21 05/04/21 05/05/21 23:59 23:59 23:59 23:59 Intake Total 3060 980 660 Output Total 50 Balance 3060 930 660 Meds/Results Medications: Active Medications Generic Name Dose Route Start Last Admin Trade Name Freq PRN Reason Stop Dose Admin Acetaminophen 650 mg 05/03/21 19:46 Acetaminophen 325 Mg Tablet PO Q4-6H PRN Pain (Scale Score 1-3) Amoxicillin/Clavulanate Potassium 1 tablet 05/05/21 17:00 Amoxicillin/Clavulanate K 500-125 Mg Tab PO [id number]@1700 PRN DIALYSIS DAYS Atorvastatin Calcium 40 mg 05/04/21 09:00 05/05/21 08:10 Atorvastatin 40 Mg Tablet PO 40 mg DAILY [facility] Administration Clonidine HCl 0.2 mg 05/03/21 19:55 05/05/21 12:22 Clonidine Hcl 0.2 Mg Tablet PO 0.2 mg TID [facility] Administration Hydromorphone HCl 0.5 mg 05/03/21 19:45 05/05/21 08:15 Hydromorphone Hcl Inj (*Crx) 1 Mg/Ml Syr IV PUSH 0.5 mg Q3H PRN Administration Pain Rated 7-10 Albumin Human 50 mls @ 999 mls/hr 05/04/21 07:10 Albutein IVPB 06/03/21 07:09 Q10M PRN HYPOTENSION Levothyroxine Sodium 125 mcg 05/04/21 06:30 05/05/21 06:00 Levothyroxine Sodium 125 Mcg Tablet PO 125 mcg DAILY@0630 [facility] Administration Loratadine 10 mg 05/03/21 21:00 05/04/21 20:18 Loratadine 10 Mg Tablet PO 10 mg HS [facility] Administration Losartan Potassium 100 mg 05/04/21 09:00 05/05/21 08:10 Losartan Potassium 100 Mg Tablet PO 100 mg DAILY [facility] Administration Nicotine 1 patch 05/03/21 19:55 05/05/21 08:11 Nicotine (*Bonykc) 14 Mg Patch TRANSDERM 1
[2021-05-05] MEDS: LORATADINE 10 MG TABLET PO (22:15)
[2021-05-05] MEDS: traZODone HCL 50 MG TABLET PO (22:15)
[2021-05-05] MEDS: AMOXICILLIN/CLAVULANATE K 500-125 MG TAB 1 TABLET PO (23:13)
[2021-05-06] VITALS (7 sets, daily range): BP systolic 136–143; BP diastolic 80–81; PULSE 64–80; RESP 16–18; TEMP 36.1–36.8; O2SAT 100
[2021-05-06] MEDS: ONDANSETRON INJ 4 MG/2 ML VIAL IV PUSH (00:33)
[2021-05-06] MEDS: CENTRAL LINE FLUSH 10 ML IV PUSH (06:03)
[2021-05-06] MEDS: LEVOTHYROXINE SODIUM 125 MCG TABLET PO (06:09)
[2021-05-06] MEDS: NICOTINE (*PBKC) 14 MG PATCH 1 PATCH TRANSDERM (08:11)
[2021-05-06] MEDS: SACCHAROMYCES BOULARDII 250 MG CAPSULE PO ×2 (08:12→17:08)
[2021-05-06] MEDS: NIFEdipine 30 MG TAB.ER.24 60 MG PO (08:12)
[2021-05-06] MEDS: LOSARTAN POTASSIUM 100 MG TABLET PO (08:12)
[2021-05-06] MEDS: cloNIDine HCL 0.2 MG TABLET PO ×3 (08:12→17:09)
[2021-05-06] MEDS: ATORVASTATIN 40 MG TABLET PO (08:12)
[2021-05-06] MEDS: AMOXICILLIN/CLAVULANATE K 500-125 MG TAB 1 TABLET PO (08:14)
[2021-05-06] MEDS: CENTRAL LINE FLUSH 20 ML IV PUSH (12:28)
[2021-05-06] MEDS: PANTOPRAZOLE 40 MG TABLET PO (12:28)
[2021-05-06 12:38] LABS: Hematocrit 31.8 % (37.0-47.0); Hemoglobin 10.4 g/dL (12.0-15.0); Mean Corpuscular HGB Conc 32.7 g/dl (32-36); Mean Corpuscular Hemoglobin 28.7 pg (26-34); Mean Corpuscular Volume 87.6 fl (80-100); Mean Platelet Volume 9.7 fl (7.4-10.4); Platelet Count Result 227 k/mm3 (150-375); Red Blood Count 3.63 M/mm3 (4.2-5.4); Red Cell Distribution Width 15.5 % (11.5-14.5); White Blood Count 5.7 K/mm3 (4.5-10.0)
--- NOTE | 2021-05-06 13:02 | PM.PNNEP ---
Progress Note: A&P Assessment and Plan (1) ESRD (end stage renal disease): Code(s): N18.6 - End stage renal disease Status: Chronic Assessment and Plan: HD tomorrow to continue outpatient M/W/ dialysis schedule follow electrolytes, volume status, and clearance (2) Colitis: Code(s): K52.9 - Noninfective gastroenteritis and colitis, unspecified Status: Acute Assessment and Plan: suspected based on evidence to date s/p IVF resuscitation follow cultures (negative to date) on antibiotics advance diet as tolerated (3) Lactic acidosis: Code(s): E87.2 - Acidosis Status: Acute Assessment and Plan: noted on admission and resolved s/p IV fluid resuscitation follow trend (4) Essential (primary) hypertension: Code(s): I10 - Essential (primary) hypertension Status: Chronic Assessment and Plan: difficult to control at baseline but stable at this time resume home medications follow trend of hemodynamics (5) Anemia: Code(s): D64.9 - Anemia, unspecified Status: Acute Assessment and Plan: due to ESRD Epogen with HD follow H/H Will continue to follow. Subjective Date/time seen: 05/06/21 13:02 Tolerated dialysis yesterday without any issues or problems; eating and drinking okay; no further abdominal pain voiced; no events overnight or earlier this AM. Exam Narrative: General: WD/WN AA female in NAD Heart: normal S1 and S2; no rub Lungs: clear to auscultation Abdomen: soft, nontender, nondistended, positive bowel sounds Extremities: no cyanosis or clubbing; no edema Skin: no rash or nodules Objective Data Vital Signs Vital Signs: Vital Signs Temp Pulse Resp BP Pulse Ox 05/06/21 06:00 36.1 C L 64 18 143/81 H 100 05/06/21 04:00 69 05/06/21 00:00 80 05/05/21 22:00 36.2 C L 89 18 142/87 H 100 05/05/21 20:00 89 18 100 05/05/21 18:15 36.6 C 65 16 139/79 05/05/21 18:14 36.6 C 71 20 135/70 99 05/05/21 17:55 62 146/82 H 05/05/21 17:45 71 161/87 H 05/05/21 17:30 64 154/84 H 05/05/21 17:15 64 150/83 H 05/05/21 17:00 64 150/83 H 05/05/21 16:45 64 135/80 05/05/21 16:30 64 123/76 05/05/21 16:15 59 L 137/82 05/05/21 16:00 59 L 139/82 05/05/21 15:45 55 L 126/78 05/05/21 15:30 57 L 126/72 05/05/21 15:10 61 112/69 05/05/21 15:00 36.8 C 67 16 119/73 05/05/21 14:00 36.9 C 66 16 117/78 100 Intake/Output Intake/Output: Intake & Output 05/03/21 05/04/21 05/05/21 05/06/21 23:59 23:59 23:59 23:59 Intake Total 3060 980 1110 690 Output Total 50 0 Balance 3060 930 1110 690 Meds/Results Medications: Active Medications Generic Name Dose Route Start Last Admin Trade Name Freq PRN Reason Stop Dose Admin Acetaminophen 650 mg 05/03/21 19:46 Acetaminophen 325 Mg Tablet PO Q4-6H PRN Pain (Scale Score 1-3) Amoxicillin/Clavulanate Potassium 1 tablet 05/07/21 17:00 Amoxicillin/Clavulanate K 500-125 Mg Tab PO [id number]@1700 [facility] Amoxicillin/Clavulanate Potassium 1 tablet 05/06/21 08:00 05/06/21 08:14 Amoxicillin/Clavulanate K 500-125 Mg Tab PO 1 tablet DAILY@0800 [facility] Administration Atorvastatin Calcium 40 mg 05/04/21 09:00 05/06/21 08:12 Atorvastatin 40 Mg Tablet PO 40 mg DAILY [facility] Administration Clonidine HCl 0.2 mg 05/03/21 19:55 05/06/21 12:28 Clonidine Hcl 0.2 Mg Tablet PO 0.2 mg TID [facility] Administration Hydromorphone HCl 0.5 mg 05/03/21 19:45 05/05/21 22:18 Hydromorphone Hcl Inj (*Crx) 1 Mg/Ml Syr IV PUSH 0.5 mg Q3H PRN Administration Pain Rated 7-10 Albumin Human 50 mls @ 999 mls/hr 05/04/21 07:10 Albutein IVPB 11/11/21 07:09 Q10M PRN HYPOTENSION Levothyroxine Sodium 125 mcg 05/04/21 06:30 05/06/21 06:09 Levothyroxine Sodium 125 Mcg Tablet PO 125 mcg DAILY@0630 [facility] Administra
[2021-05-06 13:16] LABS: Albumin Level 3.1 g/dL (3.5-5.1); Anion Gap 2 mmol/L (8-16); Blood Urea Nitrogen 9 mg/dL (7-17); Carbon Dioxide 33 mmol/L (22-30); Chloride 103 mmol/L (98-107); Estimated CRCL calculation 7 ml/min; Estimated Glomerular Filt Rate 10; Glucose 102 mg/dL (65-110); Magnesium 1.8 mg/dL (1.6-2.3); Phosphorus 2.9 mg/dL (2.5-4.5); Potassium 3.8 mmol/L (3.4-5.0); Sodium 138 mmol/L (137-145)
--- NOTE | 2021-05-06 14:05 | PM.DS ---
DS: Admitting Diagnosis Discharge Date 05/06/21 Admitting Diagnosis Diarrhea DS: Discharge Diagnosis Discharge Diagnosis (1) Sepsis: Code(s): A41.9 - Sepsis, unspecified organism Status: Acute Assessment and Plan: The patient is a 65-year-old woman with a history of end-stage renal disease, who presented to the emergency room with diarrhea and dehydration. On arrival to patient was found to [place] [address], elevated lactic acid at 7.7, with hemoconcentrated H&H due to dehydration, metabolic acidosis serum bicarb of 11. CTA abdomen pelvis showed colonic fluid, diarrhea. No signs of any ischemic bowel with Angiography imaging. She was admitted into the hospital for sepsis, possible colitis due to diarrhea and colonic fluid on CT, concern for ischemic colitis due to elevated lactic of 7. She received IV fluid hydration and the admitting provider actually called [facility] and had her excepted for transfer but we were waiting for a bed. At this time, patients vitals and labs are at her baseline. She denies anymore diarrhea this morning, it has been slowing down and becoming more formed. She reports some epigastric pain after eating a taking pills along with some GERD like symptoms .She does not take a PPI. Will start her on Pantoprozole 40 mg BID for 30 days for gastritis. She also reports some trouble with swallowing, like food is getting stuck. Shes never had an EGD before but her brother had to have his esophagus dilated in the past. Told her to follow up with a GI Specialist for an EGD. She is feeling much better at this time. Understands the plan. I also talked to her son about everything as well and follow up plan. Return to ER warnings given. The patient and son understand and agree with the plan. All questions answered. (2) Colitis: Code(s): K52.9 - Noninfective gastroenteritis and colitis, unspecified Status: Acute Assessment and Plan: See above. Blood cultures are negative. Will switch patient to oral Augmentin 500 mg daily and an extra dose with dialysis and probiotic Stool cultures were collected and sent. Pending results. (3) ESRD (end stage renal disease): Code(s): N18.6 - End stage renal disease Status: Chronic Assessment and Plan: Patient has dialysis Monday and Monday. She has a temporary catheter dialysis in the right upper chest. Patient stated she is going to get AV fistula in the near future. Nephrology consulted. Patient had dialysis 05/04/21 (4) Brain aneurysm: Code(s): I67.1 - Cerebral aneurysm, nonruptured Status: Acute Assessment and Plan: The patient stated this is being monitored outpatient. (5) Chronic kidney disease (CKD), stage V: Code(s): N18.5 - Chronic kidney disease, stage 5 Status: Chronic Assessment and Plan: Patient has dialysis on Monday and Monday. Dialysis now. Continue with her routine medications. (6) Anemia in chronic renal disease: Qualifiers: Chronic kidney disease stage: stage 5, not on chronic dialysis Qualified Code(s): N18.5 - Chronic kidney disease, stage 5; D63.1 - Anemia in chronic kidney disease Code(s): N18.9 - Chronic kidney disease, unspecified; D63.1 - Anemia in chronic kidney disease Status: Acute Assessment and Plan: Appears to be chronic and stable. Hemoglobin 10, hematocrit 31%. Continue to monitor. (7) Hypothyroid: Qualifiers: Hypothyroidism type: acquired Qualified Code(s): E03.9 - Hypothyroidism, unspecified Code(s): E03.9 - Hypothyroidism, unspecified Status: Chronic Asses
[2021-05-06] MEDS: NEOMYCIN/POLYMYXIN/BACITRACIN OINTMENT PACKET 1 PACKET (15:55)
--- NOTE | 2021-05-13 12:46 | PC.NURSE ---
Stool cx normal, blood cx are negative.
== END 2021-05-06 17:40 | disposition home or self-care (01) | DRG 391 ==
LOC: ANHED 05-03 14:29 → ANH3MEDSUR 05-03 16:39
PROVIDERS: Emergency Medicine; Internal Medicine Nephrology; Nurse Practitioner; Admitting Provider Internal Medicine; Emergency Provider Emergency Medicine; PCP Nurse Practitioner Family; Visit Provider Physician Assistant
DX: K52.9 Noninfective gastroenteritis and colitis, unspecified (principal); N18.6 End stage renal disease; E87.2 Acidosis; I12.0 Hypertensive chronic kidney disease with stage 5 chronic kidney disease or end stage renal disease; Z20.822 Contact with and (suspected) exposure to COVID-19; Z99.2 Dependence on renal dialysis; I67.1 Cerebral aneurysm, nonruptured; D63.1 Anemia in chronic kidney disease; E03.9 Hypothyroidism, unspecified; E78.5 Hyperlipidemia, unspecified; F17.210 Nicotine dependence, cigarettes, uncomplicated; E86.0 Dehydration; R76.8 Other specified abnormal immunological findings in serum; Z79.82 Long term (current) use of aspirin; Z79.899 Other long term (current) drug therapy; Z86.73 Personal history of transient ischemic attack (TIA), and cerebral infarction without residual deficits
CPT/HCPCS: 36415; 36556; 74019; 74174; 74176; 80053; 80069; 82274; 83605; 83615; 83690; 83735; 84100; 84443; 84484; 85014; 85018; 85025; 85027; 85610; 85730; 86706; 87040; 87045; 87324; 87340; 87426; 87427; 93005; 96361; 96365; 96366; 96367; 96375; 99285; A9270; C1751; C9803; G0257; J1170; J1644; J2270; J2405; J2543; J7030; Q5105; Q9967

== ENCOUNTER 2021-10-23 11:29 | Emergency (ER) | payer MEDICARE, SELFPAY ==
[2021-10-23 11:34] VITALS: BP 125/69; PULSE 124; RESP 16; TEMP 36.7; O2SAT 100
[2021-10-23 12:15] LABS: Basophils Percent Auto 0.7 % (0.2-1.2); Eosinophils Absolute Auto 0.1 K/mm3 (0-0.3); Eosinophils Percent Auto 1.8 % (0-4.4); Hematocrit 21.8 % (37.0-47.0); Hemoglobin 7.1 g/dL (12.0-15.0); Immature Granulocyte Absolute 0.01 K/mm3 (0.00-0.031); Immature Granulocyte Percent A 0.2 % (0-0.5); Lymphocytes Absolute Auto 1.22 K/mm3 (0.9-3.2); Lymphocytes Percent Auto 21.4 % (18.3-44.2); Mean Corpuscular HGB Conc 32.6 g/dl (32-36); Mean Platelet Volume 11.2 fl (7.4-10.4); Monocytes Absolute Auto 0.4 K/mm3 (0.1-0.6); Monocytes Percent Auto 6.7 % (2.6-8.5); Neutrophils Percent Auto 69.2 % (45.5-73.1); Platelet Count Result 244 k/mm3 (150-375); Red Blood Count 2.45 M/mm3 (4.2-5.4); Red Cell Distribution Width 14.7 % (11.5-14.5); White Blood Count 5.7 K/mm3 (4.5-10.0)
--- NOTE | 2021-10-23 13:05 | ED.GENADULT ---
HPI - General Adult General Chief complaint: Recheck/Abnormal Lab/Rx Stated complaint: low Hg after dialysis Time Seen by Provider: 10/23/21 12:25 Source: patient and EMS Mode of arrival: EMS Limitations: no limitations History of Present Illness HPI narrative: Patient is 66 years old -[place] female on chronic hemodialysis, came to the emergency room because she got a phone call from the dialysis office that her hemoglobin is low. Patient denies any fever, chills, nausea, vomiting, vomiting blood or passing blood.. Last dialysis was 6 days ago Related Data Home Medications Medication Instructions Recorded Confirmed acetaminophen 650 mg PO Q4-6H PRN 02/26/21 08/12/21 albuterol sulfate [Ventolin HFA] 2 inhalation INHALATION Q4H PRN 02/26/21 08/12/21 fexofenadine [Viridiana Allergy] 180 mg PO HS 02/26/21 08/12/21 calcium acetate 667 mg tablet 1,334 mg PO TID 08/12/21 08/12/21 Allergies Allergy/AdvReac Type Severity Reaction Status Date / Time No Known Allergies Allergy Verified 10/23/21 11:49 Review of Systems Review of Systems: CONSTITUTIONAL: Denies fever, chills, or sweats. EYES: Denies visual changes, redness, or discharge. ENT: Denies rhinorrhea, congestion, sore throat, or otalgia. CARDIOVASCULAR: Denies chest pain, palpitations, or edema. RESPIRATORY: Denies cough or dyspnea. GASTROINTESTINAL: Denies abdominal pain, nausea, vomiting, or diarrhea. GENITOURINARY: Denies dysuria or hematuria. SKIN: Denies rash or itching. MUSCULOSKELETAL: Denies back pain, joint pain, or myalgia. NEUROLOGIC: Denies headache, numbness, or weakness. PSYCHIATRIC: Denies anxiety or depression. [facility], [facility] Past Medical History Medical History Brain aneurysm CKD (chronic kidney disease) stage 5, GFR less than 15 ml/min Erythropoietin deficiency anemia Essential (primary) hypertension History of intestinal obstruction 2005, 2015 Hx of gastric ulcer (~2015) Hyperlipidemia Hypothyroid Insomnia Tobacco dependence Surgical History Surgical History History of cholecystectomy (~1985) History of exploratory laparotomy x 2 for bowel obstruction in the past (2005 & 2016) History of hysterectomy (~1978) Hx of removal of ovary (~2000) Family History Family History Mother Family history of coronary artery disease Hypertension Father Family history of malignant neoplasm of stomach Hypertension Sibling Diabetes mellitus Hypertension Social History Social History Social History: The patient stated that she smokes a half a pack or less of cigarettes a day. She is to her . Her is a durable power family law attorney for healthcare. The patient is full code. She has 1 child. She has raised 3 of her nephews and a grand daughter as well. The patient is disabled. The patient stated she has not used marijuana since about 40 years ago. She does not use any alcohol or illicit drugs. Code status full code Smoking packs per day: 10 Smoking cigarettes per day: 200.0 Years smoked: 20 Smoking pack-years: 200.00 Smoking status: Current every day smoker Tobacco type: cigarettes Second hand tobacco smoke exposure: Yes Additional smoking assessment comments: Quit 5 years ago then started back up again. Alcohol intake: former Drinks per week: 1 Substance use: never Substance use type: marijuana Last use: Early 2020 Spiritual care concerns: Yes (Congregation) Exam Narrative: General appearance: Well-developed, well-nourished Skin: Normal color Head: Normocephalic, nontraumatic Eyes: Clear conjunctiva ENT: Oropharynx normal, ears normal, nose normal Neck: Supple, nontender Chest and respiratory: Airway patent, no respiratory distress, no accessory muscle use Heart: Regular rate/rhythm
[2021-10-23 13:37] VITALS: BP 112/72; PULSE 82; RESP 18; O2SAT 97
== END 2021-10-23 13:40 | disposition home or self-care (01) ==
PROVIDERS: Emergency Medicine; Emergency Provider Emergency Medicine; PCP Family Medicine
DX: I12.0 Hypertensive chronic kidney disease with stage 5 chronic kidney disease or end stage renal disease (principal); N18.5 Chronic kidney disease, stage 5; D63.1 Anemia in chronic kidney disease; Z99.2 Dependence on renal dialysis; E78.5 Hyperlipidemia, unspecified; E03.9 Hypothyroidism, unspecified; F17.210 Nicotine dependence, cigarettes, uncomplicated
CPT/HCPCS: 36415; 85025; 99283

== ENCOUNTER 2021-11-02 07:44 | Outpatient (RCR) | payer MEDICARE, SELFPAY ==
[2021-11-01 15:43] LABS: Hematocrit 24.3 % (37.0-47.0); Hemoglobin 7.8 g/dL (12.0-15.0)
[2021-11-02] VITALS (10 sets, daily range): BP systolic 90–131; BP diastolic 57–74; PULSE 60–71; RESP 14–16; TEMP 36.1–36.8; O2SAT 95–100
[2021-11-02] MEDS: diphenhydrAMINE HCl CAP 25 MG CAPSULE PO (08:02)
== END 2022-01-30 23:59 | disposition home or self-care (01) ==
LOC: ANHCPCTRAN 07:44
PROVIDERS: PCP Nurse Practitioner Family; Visit Provider Internal Medicine Nephrology
DX: N18.4 Chronic kidney disease, stage 4 (severe) (principal); D63.1 Anemia in chronic kidney disease
CPT/HCPCS: 36415; 36430; 85014; 85018; 86850; 86900; 86901; 86920; P9038; A9270; J7050; P9016

== ENCOUNTER 2022-04-30 22:13 | Inpatient (IN) | payer MEDICARE, SELFPAY ==
[2022-04-30] VITALS (13 sets, daily range): BP systolic 178–200; BP diastolic 80–88; PULSE 100–111; RESP 11–34; TEMP 36.9; O2SAT 100
--- NOTE | ~2022-04-30 | XR_ITS ---
XR chest 1V 04/30/2022 23:55 Indication: Altered mental status Procedure: AP and lateral views of the chest Comparison: Comparison to multiple prior studies sequentially, with oldest reviewed study dated 09/06. Findings: Cardiomegaly. There has been interval development of airspace disease of the right mid and lower lung, consistent with pneumonia. No pleural effusion or pneumothorax. Impression: 1: Airspace disease of the right mid and lower lung, consistent with pneumonia. Reviewed, dictated and finalized at location A. Impression: 1: Airspace disease of the right mid and lower lung, consistent with pneumonia.
--- NOTE | ~2022-04-30 | XR_ITS ---
EXAMINATION: XR chest 1V portable DATE: 05/04/2022 07:33 INDICATION: Pneumonia. TECHNIQUE: A single frontal view of the chest was obtained. COMPARISON: Chest single view 04/30/2022 FINDINGS: There are airspace opacities in right middle lower lung zones. Librado B-lines are noted, co nsistent with mild pulmonary edema. No pleural effusion or pneumothorax. The heart size is normal. Th ere are surgical clips in left upper arm. IMPRESSION: 1. Airspace opacities in right mid and lower lung zones with mild improvement, consistent with pneumo butch. 2. Mild pulmonary edema. Reviewed, dictated and finalized at location A. IMPRESSION: 1. Airspace opacities in right mid and lower lung zones with mild improvement, consistent with pneumonia. 2. Mild pulmonary edema.
--- NOTE | ~2022-04-30 | CT_ITS ---
EXAMINATION: CT brain wo con DATE: 04/30/2022 23:50 INDICATION: Altered mental status TECHNIQUE: Computed tomography (CT) of the head was performed without intravenous contrast. The dose- length product was 605.33 mGy-cm. Automated exposure control and iterative reconstruction technique w ere employed. COMPARISON: CT dated 02/29/2020 FINDINGS: Generalized atrophy. There are scattered mild periventricular and subcortical white matter changes, most likely related to small vessel ischemic disease (microangiopathy). No acute intracrania l hemorrhage, infarction, mass or mass effect. No ventriculomegaly or midline shift. Paranasal sinuse s and mastoids are pneumatized. IMPRESSION: 1. No acute intracranial abnormality. Reviewed, dictated and finalized at location A.
--- NOTE | 2022-04-30 22:28 | ECG_ITS ---
Measurements Intervals [place] Rate: 104 P: 56 IN: 164 QRS: -33 QRSD: 85 T: 48 QT: 315 QTc: 416 Interpretive Statements SINUS TACHYCARDIA WITH PACS MARKED LEFT AXIS DEVIATION [QRS AXIS < -30] CONSIDER ANTEROSEPTAL MYOCARDIAL INFARCTION , OLD COMPARED TO ECG 05/03/2021 00:21:15 NO SIGNIFICANT DIFFERENCE Electronically Signed On 05-01-2022 10:18:37 CDT by Tanner Ryan M.D.
--- NOTE | 2022-04-30 22:39 | ED.AMS ---
HPI - Altered Mental Status General Chief Complaint: Altered Mental Status <JOSEE Myers Last Filed: 05/01/22 02:40> Stated Complaint: Missed dialysis, Mon and Monday <Mila Campbell PA-C - Last Filed: 05/01/22 02:40> Time Seen by Provider: 04/30/22 22:28 <JOSEE Myers Last Filed: 05/01/22 02:40> History of Present Illness HPI narrative: Patient is a 66-year-old female with history of ESRD on hemodialysis, known to miss frequent doses, here for evaluation of altered mental status. Patient was brought in by her who provides all of the history. States that patient has been acting confused over the past day and a half. Was advised by her dialysis nurse to come to the emergency department after missing 3 doses of dialysis yesterday but patient refused. Patient was brought in today by her because she started to act scary , with decreased responsiveness, increased confusion. Also notes that she has been coughing over the past several days. <JOSEE Myers Last Filed: 05/01/22 02:40> Related Data Home Medications: Home Medications Medication Instructions Recorded Confirmed acetaminophen 325 mg tablet 650 mg PO Q4-6H PRN Pain (Scale 02/26/21 03/29/22 Score 1-3) albuterol sulfate 90 mcg/actuation 2 inhalation inhalation Q4H PRN 02/26/21 03/29/22 aerosol inhaler (Ventolin HFA) Shortness Of Breath Or Wheezing fexofenadine 180 mg tablet 180 mg PO HS 02/26/21 03/29/22 (Viridiana Allergy) calcium acetate 667 mg tablet 1,334 mg PO TID 08/12/21 03/29/22 <JOSEE Myers Last Filed: 05/01/22 02:40> Allergies/Adverse Reactions: Allergies Allergy/AdvReac Type Severity Reaction Status Date / Time No Known Allergies Allergy Verified 03/29/22 15:44 <JOSEE Myers Last Filed: 05/01/22 02:40> Review of Systems Review of Systems: ROS unobtainable: Yes unobtainable due to mental status <Mila Campbell PA-C - Last Filed: 05/01/22 02:40> [facility] Past Medical History Medical History: Medical History Brain aneurysm CKD (chronic kidney disease) stage 5, GFR less than 15 ml/min Erythropoietin deficiency anemia Essential (primary) hypertension GERD without esophagitis History of intestinal obstruction 2005, 2015 Hx of gastric ulcer (~2015) Hyperlipidemia Hypothyroid Insomnia Tobacco dependence <Mila Campbell PA-C - Last Filed: 05/01/22 02:40> Surgical History Surgical History: Surgical History History of cholecystectomy (~1985) History of exploratory laparotomy x 2 for bowel obstruction in the past (2005 & 2015) History of hysterectomy (~1978) Hx of removal of ovary (~2000) <Mila Campbell PA-C - Last Filed: 05/01/22 02:40> Family History Family History: Family History Mother Family history of coronary artery disease Hypertension Father Family history of malignant neoplasm of stomach Hypertension Sibling Diabetes mellitus Hypertension <Mila Campbell PA-C - Last Filed: 05/01/22 02:40> Social History Social History: Social History (Updated 03/29/22 @ 16:50 by Georgia Lagunas NP) Social History: The patient stated that she smokes a half a pack or less of cigarettes a day. She is to her . Her is a durable power contract attorney for healthcare. The patient is full code. She has 1 child. She has raised 3 of her nephews and a grand daughter as well. The patient is disabled. The patient stated she has not used marijuana since about 40 years ago. She does not use any alcohol or illicit drugs. Code status full code Smoking packs per day: 0.5 Smoking cigarettes per day: 10.0 Years smoked: 20 Smoking pack-years: 10.00 Smoking
[2022-04-30 23:31] LABS: Lactic Acid Reflex 2.1 mmol/L (0.7-2.0)
[2022-05-01] VITALS (53 sets, daily range): BP systolic 120–202; BP diastolic 74–147; PULSE 89–132; RESP 10–20; TEMP 36–38.8; O2SAT 94–100; BMI 16.2
[2022-05-01 00:07] LABS: Basophils Percent Auto 0.2 % (0.2-1.2); Eosinophils Absolute Auto 0.1 K/mm3 (0-0.3); Eosinophils Percent Auto 0.4 % (0-4.4); Hematocrit 33.3 % (37.0-47.0); Hemoglobin 11.7 g/dL (12.0-15.0); Immature Granulocyte Percent A 0.6 % (0-0.5); Lymphocytes Absolute Auto 0.37 K/mm3 (0.9-3.2); Lymphocytes Percent Auto 2.3 % (18.3-44.2); Mean Corpuscular HGB Conc 35.1 g/dl (32-36); Mean Corpuscular Hemoglobin 28.8 pg (26-34); Mean Platelet Volume 10.7 fl (7.4-10.4); Monocytes Absolute Auto 0.7 K/mm3 (0.1-0.6); Monocytes Percent Auto 4.1 % (2.6-8.5); Neutrophils Absolute Auto 14.7 K/mm3 (1.3-6.7); Neutrophils Percent Auto 92.4 % (45.5-73.1); Platelet Count Result 356 k/mm3 (150-375); Red Blood Count 4.06 M/mm3 (4.2-5.4); Red Cell Distribution Width 15.6 % (11.5-14.5); White Blood Count 15.9 K/mm3 (4.5-10.0)
[2022-05-01 00:18] LABS: Alanine Aminotransferase 27 U/L (6-35); Albumin Level 3.8 g/dL (3.5-5.1); Alkaline Phosphatase 90 U/L (38-126); Anion Gap 21 mmol/L (8-16); Aspartate Amino Transferase 87 U/L (14-36); Bilirubin,Total 0.8 mg/dL (0.2-1.3); Calcium 8.5 mg/dL (8.4-10.2); Carbon Dioxide 19 mmol/L (22-30); Chloride 93 mmol/L (98-107); Glucose 94 mg/dL (65-110); Magnesium 2.4 mg/dL (1.6-2.3); Phosphorus 6.7 mg/dL (2.5-4.5); Potassium 7.1 mmol/L (3.4-5.0); Sodium 133 mmol/L (137-145)
[2022-05-01 00:19] LABS: Platelet Estimate Adequate (Adequate)
[2022-05-01 00:20] LABS: Burr Cells 1+ (NORMAL); Estimated CRCL calculation 2 ml/min; Estimated Glomerular Filt Rate 3; Target Cells 1+ (NORMAL)
[2022-05-01 00:36] LABS: INR 1.2; Partial Thromboplastin Time 35.3 SECONDS (22.3-36.8); Prothrombin Time 14.7 Seconds (11.1-14.7)
[2022-05-01] MEDS: CALCIUM GLUCONATE 1,000 MG/10 ML VIAL 1000 MG IV PUSH (00:39)
[2022-05-01] MEDS: DEXTROSE 50% 25 GM/50 ML SYRINGE IV PUSH (00:40)
[2022-05-01] MEDS: INSULIN HUMAN REGULAR (*BKC) 100 UNITS/ML IV PUSH (00:47)
[2022-05-01 00:53] LABS: Blood Urea Nitrogen 133 mg/dL (7-17)
[2022-05-01] MEDS: SODIUM BICARBONATE 8.4% 50 MEQ/50 ML SYRINGE IV PUSH (01:58)
[2022-05-01 02:04] LABS: Glucose Point of Care 101 mg/dl (65-105)
[2022-05-01 02:08] LABS: SARS-CoV-2 RNA PCR Positive
[2022-05-01] MEDS: levoFLOXacin 500 MG/D5W 100 ML 500 MG/100 ML BAG 100 MG IVPB (02:08)
[2022-05-01 02:19] LABS: Reflex Lactic Acid Yes or No Add Lactic
[2022-05-01] MEDS: LACTATED RINGERS 500 ML 999 ML IV CONT (03:01)
[2022-05-01 03:52] LABS: Lactic Acid 1.9 mmol/L (0.7-2.0)
--- NOTE | 2022-05-01 04:10 | ADMGEN ---
This patient, Madison Santos, was admitted to IMU Room 203-01 at 0320. Patient/family oriented to hospital policies and general routines including ID bracelet, bed and alarms, visiting hours, pain management, procedures, bathroom and other care routines, personal items, smoking policy, room service/diet, and visiting hours. Information on how to activate the Rapid Response Team has been discussed. Patient/Family are encouraged to report perceived risks to care and to ask questions if they do not understand what they are told or what they should do.
[2022-05-01 04:32] LABS: Ammonia 36 umol/L (9-30)
[2022-05-01 08:55] LABS: Potassium 6.6 mmol/L (3.4-5.0)
[2022-05-01 08:59] LABS: Albumin Level 3.4 g/dL (3.5-5.1); Anion Gap 22 mmol/L (8-16); Calcium 8.5 mg/dL (8.4-10.2); Carbon Dioxide 20 mmol/L (22-30); Chloride 93 mmol/L (98-107); Glucose 88 mg/dL (65-110); Phosphorus 5.6 mg/dL (2.5-4.5); Sodium 135 mmol/L (137-145)
[2022-05-01 09:08] LABS: Estimated CRCL calculation 2 ml/min; Estimated Glomerular Filt Rate 3
[2022-05-01 09:14] LABS: Blood Urea Nitrogen 130 mg/dL (7-17)
[2022-05-01 10:48] LABS: Hepatitis B Surface Antigen Negative (Negative)
[2022-05-01 11:05] LABS: Hepatitis B Surface Anti Res Negative
--- NOTE | 2022-05-01 11:51 | PM.CNNEP ---
Assessment and Plan Assessment and plan (1) ESRD (end stage renal disease): Code(s): N18.6 - End stage renal disease Status: Chronic Assessment and Plan: HD today due to elevated BUN and hyperkalemai normally does M/W/F at [facility] would have planned HD tomorrow but she requires isolation due to COVID -- plan next treatment on Monday (2) Acute hyperkalemia: Code(s): E87.5 - Hyperkalemia Status: Acute Assessment and Plan: presumably due to missed dialysis treatment follow trend of repeat K+ (3) Altered mental status: Code(s): R41.82 - Altered mental status, unspecified Status: Acute Assessment and Plan: suspect uremia and possibly infection (COVID + pneumonia) CT of head negative ammonia slightly elevated check TSH if not done recently follow mentation (4) Pneumonia: Code(s): J18.9 - Pneumonia, unspecified organism Status: Acute Assessment and Plan: suggestive by admission imaging follow culture datea on antibiotics (5) COVID: Code(s): U07.1 - COVID-19 Status: Acute Assessment and Plan: respiratory status stable not hypoxic or requiring oxygen continue supportive therapy Will continue to follow. History of Present Illness Reason for Consult Consult date: 05/01/22 Reason for consult: end stage renal disease Chief Complaint Chief complaint: hyperkalemia, pneumonia History of Present Illness Narrative: Most of the information I have obtained is from review of the electronic medical record as well as discussion with the ER physician yesterday evening/early this morning when the patient presented to [facility] ER As the patient is not very forthcoming with any information due to her altered mental status. The patient is a 66-year-old female with a past medical history as outlined below who presented to [facility] Emergency room for further evaluation of altered mental status. According to the patient's , he has noted the patient to be acting more and more confused over the past 24-48 hours. This is further complicated by the fact that the patient missed her last 2 sessions of dialysis for unclear reasons but apparently she has a history of noncompliance with this medical therapy. Given these symptoms, the dialysis nurses recommended the patient go to the emergency room for further evaluation but she apparently refused. However, the patient's eventually brought the patient to the emergency room yesterday as she became more and more confused and less responsive as time went on. Workup and evaluation emergency room demonstrated the patient hemodynamically stable (she was actually quite hypertensive) and in no acute distress. However, it seems clear that her mental status was not at baseline as she was not answering questions or respond to stimuli. Routine blood test demonstrated labs consistent with her known history of end-stage renal disease with an associated elevated BUN and hyperkalemia in association with a metabolic acidosis. She received medical management for hyperkalemia but there was some concern that the elevated BUN represented uremia which could explain her altered mental status in general. Her chest x-ray was somewhat suggestive of a pneumonia as well so appropriate cultures were obtained and she was started on antibiotic therapy. she was subsequent admitted to the hospital for further evaluation and therapy Renal consultation was requested due to her end-stage renal disease. The patient normally dialyzes on a Monday, Monday, Monday dialysis schedule at [facility] under the care of Dr. eDnnys Drew. As already mentioned above, she missed her last 2 dialysis treatments (Monday and Monday ) with her last dialysis treatment being on Monday (April 25, 2022) apparently, the patient has a known history of missing dialysis treatments
--- NOTE | 2022-05-01 11:55 | PM.IMHP ---
H&P: HPI History of Present Illness Date/Time: 05/01/22 11:55 Chief Complaint: Patient is a 66-year-old female with history of ESRD on hemodialysis, known to miss frequent doses, here for evaluation of altered mental status.? Patient was brought in by her who provides all of the history.? States that patient has been acting confused over the past day and a half.? Was advised by her dialysis nurse to come to the emergency department after missing 3 doses of dialysis yesterday but patient refused.? Patient was brought in today by her because she started to act scary , with decreased responsiveness, increased confusion.? Also notes that she has been coughing over the past several days. [facility] Past Medical History Medical History Brain aneurysm CKD (chronic kidney disease) stage 5, GFR less than 15 ml/min Erythropoietin deficiency anemia Essential (primary) hypertension GERD without esophagitis History of intestinal obstruction 2005, 2015 Hx of gastric ulcer (~2015) Hyperlipidemia Hypothyroid Insomnia Tobacco dependence Surgical History Surgical History History of cholecystectomy (~1985) History of exploratory laparotomy x 2 for bowel obstruction in the past (2005 & 2015) History of hysterectomy (~1978) Hx of removal of ovary (~2000) Family History Family History Mother Family history of coronary artery disease Hypertension Father Family history of malignant neoplasm of stomach Hypertension Sibling Diabetes mellitus Hypertension Social History Social History Social History: The patient stated that she smokes a half a pack or less of cigarettes a day. She is to her . Her is a durable power assistant city attorney for healthcare. The patient is full code. She has 1 child. She has raised 3 of her nephews and a grand daughter as well. The patient is disabled. The patient stated she has not used marijuana since about 40 years ago. She does not use any alcohol or illicit drugs. Code status full code Smoking packs per day: 0.5 Smoking cigarettes per day: 10.0 Years smoked: 30 Smoking pack-years: 15.00 Smoking status: Current every day smoker Second hand tobacco smoke exposure: Yes Additional smoking assessment comments: Quit 5 years ago then started back up again. Alcohol intake: former Drinks per week: 1 Substance use: never Substance use type: marijuana Last use: Early 2020 Spiritual care concerns: Yes (Taoist) Meds Home Medications and Allergies Home Medications Medication Instructions Recorded Confirmed Type acetaminophen 325 mg tablet 650 mg PO Q4-6H PRN Pain (Scale 02/26/21 05/01/22 History Score 1-3) albuterol sulfate 90 mcg/actuation 2 inhalation inhalation Q4H PRN 02/26/21 05/01/22 History aerosol inhaler (Ventolin HFA) Shortness Of Breath Or Wheezing aspirin 81 mg tablet,delayed 81 mg PO QAM #30 tabs 03/03/21 05/01/22 Rx release calcium acetate 667 mg tablet 1,334 mg PO TID 08/12/21 05/01/22 History clonidine HCl 0.2 mg tablet 0.2 mg PO BID #180 tabs 02/18/22 05/01/22 Rx levothyroxine 112 mcg tablet 112 mcg PO DAILY #30 tabs 02/28/22 05/01/22 Rx (Euthyrox) losartan 100 mg tablet 100 mg PO DAILY #90 tabs 02/28/22 05/01/22 Rx pantoprazole 40 mg tablet,delayed 40 mg PO Q12HR #180 tabs 02/28/22 05/01/22 Rx release atorvastatin 40 mg tablet 40 mg PO DAILY #90 tabs 03/25/22 05/01/22 Rx citalopram 10 mg tablet 10 mg PO DAILY #90 tabs 03/29/22 05/01/22 Rx nifedipine 30 mg tablet,extended 60 mg PO DAILY #180 tabs 03/29/22 05/01/22 Rx release 24 hr Allergies Allergy/AdvReac Type Severity Reaction Status Date / Time No Known Allergies Allergy Verified 03/29/22 15:44 Vital Signs Vital Signs - 24 h
[2022-05-01] MEDS: LORazepam INJ (*CRX) 2 MG/ML VIAL 0.25 MG IV PUSH (12:00)
[2022-05-01 13:06] LABS: INR 1.2; Prothrombin Time 14.6 Seconds (11.1-14.7)
[2022-05-01 13:13] LABS: Alanine Aminotransferase 28 U/L (6-35); Estimated CRCL calculation 46 ml/min; Estimated Glomerular Filt Rate > 60
[2022-05-01] MEDS: METOPROLOL TARTRATE INJ 5 MG/5 ML VIAL IV PUSH ×2 (15:00→18:12)
[2022-05-01] MEDS: AMPICILLIN SULB 1.5 GM/NS 50ML 1.5 GM/50 ML VIAL IVPB (15:02)
[2022-05-01] MEDS: hydrALAZINE HCL 20 MG/ML VIAL 10 MG IV PUSH (18:12)
[2022-05-01] MEDS: PANTOPRAZOLE 40 MG TABLET PO (22:00)
[2022-05-02] VITALS (20 sets, daily range): BP systolic 100–179; BP diastolic 63–79; PULSE 57–105; RESP 16–22; TEMP 36.4–37.8; O2SAT 93–99; BMI 16.2
[2022-05-02] MEDS: METOPROLOL TARTRATE INJ 5 MG/5 ML VIAL IV PUSH ×5 (00:22→23:58)
[2022-05-02] MEDS: hydrALAZINE HCL 20 MG/ML VIAL 10 MG IV PUSH ×5 (00:23→23:57)
[2022-05-02 04:51] LABS: Alanine Aminotransferase 26 U/L (6-35); Estimated CRCL calculation 5 ml/min; Estimated Glomerular Filt Rate 6; INR 1.3
[2022-05-02 08:07] LABS: Hematocrit 25.2 % (37.0-47.0); Hemoglobin 8.9 g/dL (12.0-15.0); Mean Corpuscular HGB Conc 35.3 g/dl (32-36); Mean Corpuscular Hemoglobin 28.3 pg (26-34); Mean Platelet Volume 11.2 fl (7.4-10.4); Platelet Count Result 305 k/mm3 (150-375); Red Blood Count 3.15 M/mm3 (4.2-5.4); Red Cell Distribution Width 15.4 % (11.5-14.5); White Blood Count 11.8 K/mm3 (4.5-10.0)
[2022-05-02 08:20] LABS: Anion Gap 19 mmol/L (8-16); Blood Urea Nitrogen 53 mg/dL (7-17); Calcium 7.6 mg/dL (8.4-10.2); Carbon Dioxide 29 mmol/L (22-30); Chloride 92 mmol/L (98-107); Estimated CRCL calculation 5 ml/min; Estimated Glomerular Filt Rate 7; Glucose 66 mg/dL (65-110); Potassium 4.3 mmol/L (3.4-5.0); Sodium 140 mmol/L (137-145)
[2022-05-02 08:57] LABS: Band Neutrophils Percent 26 % (0-6); Lymphocytes Absolute Manual 0.47 K/mm3 (1.1-4.5); Metamyelocytes Percent 5 %; Neutrophils Absolute Manual 10.73 K/mm3 (1.7-7.2); Neutrophils Percent Manual 65 % (46-73); Platelet Estimate Adequate (Adequate); Total Cells Counted 100
[2022-05-02 08:58] LABS: Burr Cells 2+ (NORMAL)
[2022-05-02 08:59] LABS: Poikilocytosis 1+ (NORMAL); Schistocytes 1+ (NORMAL)
[2022-05-02] MEDS: NIFEdipine 30 MG TAB.ER.24 60 MG PO (09:05)
[2022-05-02] MEDS: PANTOPRAZOLE 40 MG TABLET PO (09:05)
[2022-05-02] MEDS: LOSARTAN POTASSIUM 100 MG TABLET PO (09:05)
[2022-05-02] MEDS: CITALOPRAM HYDROBROMIDE 10 MG TABLET PO (09:05)
[2022-05-02] MEDS: CALCIUM ACETATE 667 MG TABLET 1334 MG PO ×3 (09:05→17:53)
[2022-05-02] MEDS: ASPIRIN 81 MG ENTERIC TABLET PO (09:06)
[2022-05-02] MEDS: AMPICILLIN SULB 1.5 GM/NS 50ML 1.5 GM/50 ML VIAL IVPB (09:06)
[2022-05-02] MEDS: cloNIDine HCL 0.2 MG TABLET PO ×2 (09:06→17:53)
[2022-05-02] MEDS: ATORVASTATIN 40 MG TABLET PO (09:06)
--- NOTE | 2022-05-02 11:11 | PM.IMPN ---
Progress Note: A&P Assessment and Plan (1) Acute hyperkalemia: Code(s): E87.5 - Hyperkalemia Status: Acute Assessment and Plan: hemodialysis (2) Altered mental status: Code(s): R41.82 - Altered mental status, unspecified Status: Acute Assessment and Plan: likely multifactorial with COVID and end-stage renal disease with elevated BUN. Will see how patient does after hemodialysis much improved today. Patient is answering questions appropriately. Still a little groggy. (3) Depression: Code(s): F32.A - Depression, unspecified Status: Acute Assessment and Plan: monitor (4) History of CVA (cerebrovascular accident): Code(s): Z86.73 - Personal history of transient ischemic attack (TIA), and cerebral infarction without residual deficits Status: Acute Assessment and Plan: History of no neurologic deficits (5) ESRD (end stage renal disease): Code(s): N18.6 - End stage renal disease Status: Chronic Assessment and Plan: hemodialysis I think this is likely contributing to her altered mental status. (6) Dyslipidemia: Code(s): E78.5 - Hyperlipidemia, unspecified Status: Acute Assessment and Plan: continue home meds (7) Hypothyroid: Qualifiers: Hypothyroidism type: acquired Qualified Code(s): E03.9 - Hypothyroidism, unspecified Code(s): E03.9 - Hypothyroidism, unspecified Status: Chronic Assessment and Plan: continue home meds (8) Essential (primary) hypertension: Code(s): I10 - Essential (primary) hypertension Status: Chronic Assessment and Plan: monitor blood pressure continue home meds (9) Anemia in chronic renal disease: Qualifiers: Chronic kidney disease stage: unspecified stage Qualified Code(s): N18.9 - Chronic kidney disease, unspecified; D63.1 - Anemia in chronic kidney disease Code(s): N18.9 - Chronic kidney disease, unspecified; D63.1 - Anemia in chronic kidney disease Status: Acute Assessment and Plan: monitor (10) COVID: Code(s): U07.1 - COVID-19 Status: Acute Assessment and Plan: new guidelines recommend against dexamethasone for patient is a do not require oxygen. Will use remdesivir as patient is high risk for progression. Oxygen Not needed currently continue supportive care (11) Aspiration pneumonia: Code(s): J69.0 - Pneumonitis due to inhalation of food and vomit Status: Acute Assessment and Plan: possible IV Unasyn chest x-ray does show consolidation right middle and lower lobe. Patient is congested in is altered. Risk factors for aspiration. Could also be COVID. (12) Hyperlipidemia: Code(s): E78.5 - Hyperlipidemia, unspecified Status: Acute Subjective Date/time seen: 05/02/22 11:11 more alert today Exam Narrative: General: alert and oriented Psych: appropriate mood nad affect Eyes: PERRLA Neck: Trachea midline, no new lesions Skin: no changes Lungs: CTA Cardiac: Normal S1,S2, no MGR ABD: soft, nd, nt, nbs Ext: no new lesions, no cce Vasc: Pulses intact Objective Data Vital Signs Vital Signs: Vital Signs - 24 hr 05/01/22 11:15 05/01/22 11:30 05/01/22 11:45 Temperature Pulse Rate 124 H 118 H 118 H Respiratory Rate Blood Pressure 146/91 H 159/92 H 152/93 H Pulse Oximetry Oxygen Delivery Oxygen Flow Rate 05/01/22 12:00 05/01/22 12:15 05/01/22 12:30 Temperature Pulse Rate 108 H 124 H 113 H Respiratory Rate Blood Pressure 166/84 H 194/83 H 147/103 H Pulse Oximetry Oxygen Delivery Oxygen Flow Rate 05/01/22 12:45 05/01/22 13:00 05/01/22 13:13 Temperature Pulse Rate 124 H 113 H 131 H Respiratory Rate Blood Pressure 120/96 H 165/101 H 170/111 H Pulse Oximetry Oxygen Delivery Oxygen Flow Rate 05/01/22 13:20 05/01/22 12:00 05/01/22 1
[2022-05-02 11:47] LABS: Hematocrit 25.8 % (37.0-47.0); Hemoglobin 8.8 g/dL (12.0-15.0); Mean Corpuscular HGB Conc 34.1 g/dl (32-36); Mean Corpuscular Hemoglobin 29.1 pg (26-34); Mean Corpuscular Volume 85.4 fl (80-100); Mean Platelet Volume 11.2 fl (7.4-10.4); Platelet Count Result 300 k/mm3 (150-375); Red Blood Count 3.02 M/mm3 (4.2-5.4)
[2022-05-02 11:54] LABS: IFOB Positive Control Positive; Immunochemical Fecal Occult Bl Positive (N)
[2022-05-02 12:32] LABS: Anisocytosis 1+ (NORMAL); Band Neutrophils Percent 23 % (0-6); Lymphocytes Absolute Manual 0.11 K/mm3 (1.1-4.5); Neutrophils Absolute Manual 10.89 K/mm3 (1.7-7.2); Neutrophils Percent Manual 76 % (46-73); Platelet Estimate Adequate (Adequate); Total Cells Counted 100
[2022-05-02 12:33] LABS: Burr Cells 2+ (NORMAL); Poikilocytosis 1+ (NORMAL); Target Cells 1+ (NORMAL)
[2022-05-02 12:34] LABS: Hypochromasia 1+ (NORMAL); Schistocytes None Seen (NORMAL)
--- NOTE | 2022-05-02 12:38 | P.PNNP_ITS ---
Progress Note: A&P Assessment and Plan (1) ESRD (end stage renal disease): Code(s): N18.6 - End stage renal disease Status: Chronic Assessment and Plan: * HD yesterday due to elevated BUN and hyperkalemia * normally does M/W/F at [facility] * since she requires isolation due to COVID -- plan next treatment on Monday/tomorrow (2) Acute hyperkalemia: Code(s): E87.5 - Hyperkalemia Status: Acute Assessment and Plan: * resolved * presumably due to missed dialysis treatment * follow trend of repeat K+ (3) Altered mental status: Code(s): R41.82 - Altered mental status, unspecified Status: Acute Assessment and Plan: * some improvement noted * suspect uremia and possibly infection (COVID + pneumonia) * CT of head negative * ammonia slightly elevated * follow mentation (4) Pneumonia: Code(s): J18.9 - Pneumonia, unspecified organism Status: Acute Assessment and Plan: * suggestive by admission imaging * follow culture datea * on antibiotics (5) Anemia: Code(s): D64.9 - Anemia, unspecified Status: Chronic Assessment and Plan: * drop in H/H noted * noted dark tarry stools * GI consulted * stool guaiac ordered * Epogen with HD * follow trend of H/H (6) COVID: Code(s): U07.1 - COVID-19 Status: Acute Assessment and Plan: * respiratory status stable * not hypoxic or requiring oxygen * continue supportive therapy Long and extensive discussion (> 20 minutes) by phone with patient's son, Ariel, earlier this morning regarding the above medical issues and plan of care as outlined -- he voiced understanding. Will continue to follow. Subjective Date/time seen: 05/02/22 12:38 Mentation seems better today -- she is able to answer simple question but still appears abit groogy if not slow to respond; tolerated hemodialysis treatment yesterday without any issues or problems; no events overnight or earlier this AM; noted drop in H/H along with reported dark tarry stools. Objective Data Vital Signs Vital Signs: Vital Signs Temp Pulse Resp BP Pulse Ox O2 Del Method 05/02/22 12:37 36.6 C 105 H 18 158/74 H 96 05/02/22 12:00 96 05/02/22 12:00 Room Air 05/02/22 10:00 103 H 05/02/22 08:00 93 05/02/22 08:00 Room Air 05/02/22 08:29 37.4 C 57 L 22 H 179/71 H 99 05/02/22 06:00 91 05/02/22 04:58 36.4 C 05/02/22 04:00 36.4 C 94 16 148/79 H 99 05/02/22 04:00 Room Air 05/02/22 04:00 90 05/02/22 01:43 37.8 C H 05/02/22 01:31 103 H 05/02/22 00:00 104 H 18 96 Room Air 05/02/22 00:00 99 05/02/22 00:22 104 H 05/01/22 23:20 37.2 C 93 18 163/95 H 96 05/01/22 22:00 95 05/01/22 20:00 97 05/01/22 20:50 37.3 C 96 20 162/76 H 98 05/01/22 18:40 Room Air 05/01/22 18:00 105 H 05/01/22 18:13 38.8 C H 05/01/22 18:12 132 H Intake/Output Intake/Output: Intake & Output 04/29/22 04/30/22 05/01/22 05/02/22 23:59 23:59 23:59 23:59 Intake Total 300 100 Out
--- NOTE | 2022-05-02 12:38 | PM.PNNEP ---
Progress Note: A&P Assessment and Plan (1) ESRD (end stage renal disease): Code(s): N18.6 - End stage renal disease Status: Chronic Assessment and Plan: HD yesterday due to elevated BUN and hyperkalemia normally does M/W/F at [facility] since she requires isolation due to COVID -- plan next treatment on Monday/tomorrow (2) Acute hyperkalemia: Code(s): E87.5 - Hyperkalemia Status: Acute Assessment and Plan: resolved presumably due to missed dialysis treatment follow trend of repeat K+ (3) Altered mental status: Code(s): R41.82 - Altered mental status, unspecified Status: Acute Assessment and Plan: some improvement noted suspect uremia and possibly infection (COVID + pneumonia) CT of head negative ammonia slightly elevated follow mentation (4) Pneumonia: Code(s): J18.9 - Pneumonia, unspecified organism Status: Acute Assessment and Plan: suggestive by admission imaging follow culture datea on antibiotics (5) Anemia: Code(s): D64.9 - Anemia, unspecified Status: Chronic Assessment and Plan: drop in H/H noted noted dark tarry stools GI consulted stool guaiac ordered Epogen with HD follow trend of H/H (6) COVID: Code(s): U07.1 - COVID-19 Status: Acute Assessment and Plan: respiratory status stable not hypoxic or requiring oxygen continue supportive therapy Long and extensive discussion (> 20 minutes) by phone with patient's son, Ariel, earlier this morning regarding the above medical issues and plan of care as outlined -- he voiced understanding. Will continue to follow. Subjective Date/time seen: 05/02/22 12:38 Mentation seems better today -- she is able to answer simple question but still appears abit groogy if not slow to respond; tolerated hemodialysis treatment yesterday without any issues or problems; no events overnight or earlier this AM; noted drop in H/H along with reported dark tarry stools. Objective Data Vital Signs Vital Signs: Vital Signs Temp Pulse Resp BP Pulse Ox O2 Del Method 05/02/22 12:37 36.6 C 105 H 18 158/74 H 96 05/02/22 12:00 96 05/02/22 12:00 Room Air 05/02/22 10:00 103 H 05/02/22 08:00 93 05/02/22 08:00 Room Air 05/02/22 08:29 37.4 C 57 L 22 H 179/71 H 99 05/02/22 06:00 91 05/02/22 04:58 36.4 C 05/02/22 04:00 36.4 C 94 16 148/79 H 99 05/02/22 04:00 Room Air 05/02/22 04:00 90 05/02/22 01:43 37.8 C H 05/02/22 01:31 103 H 05/02/22 00:00 104 H 18 96 Room Air 05/02/22 00:00 99 05/02/22 00:22 104 H 05/01/22 23:20 37.2 C 93 18 163/95 H 96 05/01/22 22:00 95 05/01/22 20:00 97 05/01/22 20:50 37.3 C 96 20 162/76 H 98 05/01/22 18:40 Room Air 05/01/22 18:00 105 H 05/01/22 18:13 38.8 C H 05/01/22 18:12 132 H Intake/Output Intake/Output: Intake & Output 04/29/22 04/30/22 05/01/22 05/02/22 23:59 23:59 23:59 23:59 Intake Total 300 100 Output Total 500 0 Balance -200 100 Meds/Results Medications: Active Medications Generic Name Dose Route Start Last Admin Trade Name Freq PRN Reason Stop Dose Admin Acetaminophen 650 mg 05/01/22 08:42 Acetaminophen 325 Mg Tablet PO Q4-6H PRN Pain (Scale Score 1-3) Albuterol 2 puff 05/01/22 08:42 Albuterol Sulfate (*Sp) Aerosol 1 Puff INHALATION Q4H PRN Shortness Of Breath Or Wheezing Aspirin 81 mg 05/01/22 09:00 05/02/22 09:06 Aspirin 81 Mg Enteric Tablet PO 81 mg QAM DALIA Administration Atorvastatin Calcium 40 mg 05/01/22 09:00 05/02/22 09:06 Atorvastatin 40 Mg Tablet PO 40 mg DAILY DALIA Administration Calcium Acetate 1,334 mg 05/01/22 08:00 05/02/22 12:49 Calcium Acetate 667 Mg Tablet PO 1,334 mg TIDWM DALIA Administration Stephania
[2022-05-02] MEDS: PANTOPRAZOLE SODIUM IV 40 MG VIAL IV PUSH ×2 (12:49→21:38)
--- NOTE | 2022-05-02 13:20 | PCSTNOTE ---
Please refer to the Bedside Swallow Evaluation in the EMR. Please note, silent aspiration cannot be ruled out at bedside.
--- NOTE | 2022-05-02 13:29 | PCNSR ---
On 05/02/22, the student, Tano Jeffrey, provided care and completed [facility] documentation on this patient. I have reviewed the student's documentation and agree with the findings.
--- NOTE | 2022-05-02 14:13 | WPDGICN ---
Assessment and Plan Assessment and plan (1) Melena: Code(s): K92.1 - Melena Status: Acute Assessment and Plan: started on iv protonix, discontinue aspirin continue to monitor for more signs of bleeding and transfuse if hb<7 egd tomorrow if no respiratory distress (she is breathing ok now but she has pneumonia and covid) (2) GIB (gastrointestinal bleeding): Code(s): K92.2 - Gastrointestinal hemorrhage, unspecified Status: Acute Assessment and Plan: iv protonix egd (3) Acute on chronic blood loss anemia: Code(s): D62 - Acute posthemorrhagic anemia Status: Acute Assessment and Plan: continue to trend h/h (4) COVID: Code(s): U07.1 - COVID-19 Status: Acute Assessment and Plan: new diagnosis treatment by primary (5) Acute hyperkalemia: Code(s): E87.5 - Hyperkalemia Status: Acute Assessment and Plan: treated with dialysis, she missed as outpatient (6) Altered mental status: Code(s): R41.82 - Altered mental status, unspecified Status: Acute Assessment and Plan: improved probably multifactorial from missing dialysis, pneumonia, covid, bleeding, etc (7) Pneumonia: Code(s): J18.9 - Pneumonia, unspecified organism Status: Acute (8) History of CVA (cerebrovascular accident): Code(s): Z86.73 - Personal history of transient ischemic attack (TIA), and cerebral infarction without residual deficits Status: Acute GI Consult Note Consult date/time: 05/02/22 14:13 Reason for consult: melena, GIB HPI: Madison Santos is a 66 year old female with history of CVA, HTN, ESRD on hemodialysis with non-compliance admitted because altered mental status, she is not the best historian and pat of history obtained from records.? Patient was brought in by her after noted that started acting confused last couple of days, she also missed her dialysis. Patient was lethargic and not feeling right. She was diagnosed with COVID, started on remdesivir and antibiotic, also had hyperkalemia and elevated BUN. CXR showed pneumonia, hb on admission 11 but down to mid 8s, also noted large amount of dark tarry stool consistent with melena, started on iv protonix. She is complaining of abdominal discomfort. Review of Systems Constitutional: Constitutional: Reports fatigue Eyes: Eyes: Reports no additional eye complaints ENT: Reports Normal hearing present Cardiovascular: Cardiovascular: Denies chest pain Respiratory: Respiratory: Reports cough Gastrointestinal: Gastrointestinal: Reports abdominal pain and Reports melena Genitourinary: Comments: on dialysis Musculoskeletal: Musculoskeletal: Denies arthralgias Integumentary/Breasts: Skin/Breast: Denies rash Neurologic: Comments: confusion [facility] Past Medical History Medical History (Updated 05/02/22 @ 14:19 by Christian Ramirez MD) Acute on chronic blood loss anemia Brain aneurysm CKD (chronic kidney disease) stage 5, GFR less than 15 ml/min Erythropoietin deficiency anemia Essential (primary) hypertension GERD without esophagitis GIB (gastrointestinal bleeding) History of intestinal obstruction 2005, 2015 Hx of gastric ulcer (~2015) Hyperlipidemia Hypothyroid Insomnia Melena Tobacco dependence Surgical History Surgical History History of cholecystectomy (~1985) History of exploratory laparotomy x 2 for bowel obstruction in the past (2005 & 2015) History of hysterectomy (~1978) Hx of removal of ovary (~2000) Family History Family History Mother Family history of coronary artery disease Hypertension Father Family history of malignant neoplasm of stomach Hypertension Sibling Diabetes mellitus Hypertension Social History Social History Soci
[2022-05-02 17:24] LABS: Basophils Percent Auto 0.2 % (0.2-1.2); Eosinophils Percent Auto 0.3 % (0-4.4); Hematocrit 24.7 % (37.0-47.0); Hemoglobin 8.8 g/dL (12.0-15.0); Immature Granulocyte Absolute 0.07 K/mm3 (0.00-0.031); Immature Granulocyte Percent A 0.6 % (0-0.5); Lymphocytes Absolute Auto 0.44 K/mm3 (0.9-3.2); Mean Corpuscular HGB Conc 35.6 g/dl (32-36); Mean Corpuscular Hemoglobin 28.6 pg (26-34); Mean Corpuscular Volume 80.2 fl (80-100); Mean Platelet Volume 10.8 fl (7.4-10.4); Monocytes Absolute Auto 0.5 K/mm3 (0.1-0.6); Monocytes Percent Auto 4.2 % (2.6-8.5); Neutrophils Absolute Auto 10.1 K/mm3 (1.3-6.7); Neutrophils Percent Auto 90.7 % (45.5-73.1); Platelet Count Result 306 k/mm3 (150-375); Red Blood Count 3.08 M/mm3 (4.2-5.4); Red Cell Distribution Width 15.3 % (11.5-14.5); White Blood Count 11.1 K/mm3 (4.5-10.0)
[2022-05-02 17:33] LABS: Crenated RBC 1+ (NORMAL); Platelet Estimate Adequate (Adequate); Schistocytes 1+ (NORMAL); Tear Drop Cells 2+ (NORMAL)
[2022-05-02 17:34] LABS: Ovalocytes 1+ (NORMAL); Target Cells 1+ (NORMAL)
[2022-05-02] MEDS: ACETAMINOPHEN 325 MG TABLET 650 MG PO (23:53)
[2022-05-03] VITALS (32 sets, daily range): BP systolic 80–146; BP diastolic 43–78; PULSE 78–104; RESP 16–22; TEMP 36–36.8; O2SAT 92–97
[2022-05-03 05:01] LABS: Basophils Percent Auto 0.2 % (0.2-1.2); Eosinophils Absolute Auto 0.1 K/mm3 (0-0.3); Eosinophils Percent Auto 0.9 % (0-4.4); Hematocrit 25.5 % (37.0-47.0); Hemoglobin 9.1 g/dL (12.0-15.0); Immature Granulocyte Absolute 0.08 K/mm3 (0.00-0.031); Immature Granulocyte Percent A 0.9 % (0-0.5); Lymphocytes Absolute Auto 0.43 K/mm3 (0.9-3.2); Lymphocytes Percent Auto 4.7 % (18.3-44.2); Mean Corpuscular HGB Conc 35.7 g/dl (32-36); Mean Corpuscular Volume 78.5 fl (80-100); Mean Platelet Volume 11.4 fl (7.4-10.4); Monocytes Absolute Auto 0.3 K/mm3 (0.1-0.6); Monocytes Percent Auto 3.3 % (2.6-8.5); Neutrophils Absolute Auto 8.2 K/mm3 (1.3-6.7); Platelet Count Result 305 k/mm3 (150-375); Red Blood Count 3.25 M/mm3 (4.2-5.4); Red Cell Distribution Width 15.2 % (11.5-14.5); White Blood Count 9.1 K/mm3 (4.5-10.0)
[2022-05-03 05:26] LABS: Alanine Aminotransferase 25 U/L (6-35); Anion Gap 14 mmol/L (8-16); Blood Urea Nitrogen 75 mg/dL (7-17); Carbon Dioxide 28 mmol/L (22-30); Chloride 94 mmol/L (98-107); Estimated CRCL calculation 4 ml/min; Estimated Glomerular Filt Rate 6; Glucose 139 mg/dL (65-110); Potassium 3.9 mmol/L (3.4-5.0); Sodium 136 mmol/L (137-145)
[2022-05-03 05:44] LABS: Anisocytosis 2+ (NORMAL); Crenated RBC 2+ (NORMAL); Hypochromasia 1+ (NORMAL); Ovalocytes 1+ (NORMAL); Platelet Estimate Adequate (Adequate); Schistocytes 1+ (NORMAL)
[2022-05-03] MEDS: hydrALAZINE HCL 20 MG/ML VIAL 10 MG IV PUSH (06:11)
[2022-05-03] MEDS: METOPROLOL TARTRATE INJ 5 MG/5 ML VIAL IV PUSH ×2 (06:12→13:56)
[2022-05-03 06:59] LABS: INR 1.1; Prothrombin Time 14.2 Seconds (11.1-14.7)
--- NOTE | 2022-05-03 07:17 | WPDANESEPPF ---
Anes - Initial Pre Proc Eval Procedure: Operation Date: 05/03/22 12:30 Proposed Procedures p Esophagogastroduodenoscopy EGD - Christian Ramirez MD Date/Time: 05/03/22 07:17 Surgeon: Flo Alberto MD Pre Op Diagnosis: hyperkalemia, pneumonia Patient Data Age: 66 Gender: F Height: 1.63 m Weight: 44 kg Last Vital Signs Temp 97.8 F 05/03/22 04:00 Pulse 78 05/03/22 06:12 Resp 20 05/03/22 04:00 BP 124/78 05/03/22 06:13 Pulse Ox 95 05/03/22 04:00 O2 Del Method Room Air 05/03/22 04:00 O2 Flow Rate 2 05/01/22 16:00 Allergies Allergy/AdvReac Type Severity Reaction Status Date / Time No Known Allergies Allergy Verified 03/29/22 15:44 Home Medications Medication Instructions Recorded Confirmed Type acetaminophen 325 mg tablet 650 mg PO Q4-6H PRN Pain (Scale 02/26/21 05/01/22 History Score 1-3) albuterol sulfate 90 mcg/actuation 2 inhalation inhalation Q4H PRN 02/26/21 05/01/22 History aerosol inhaler (Ventolin HFA) Shortness Of Breath Or Wheezing aspirin 81 mg tablet,delayed 81 mg PO QAM #30 tabs 03/03/21 05/01/22 Rx release calcium acetate 667 mg tablet 1,334 mg PO TID 08/12/21 05/01/22 History clonidine HCl 0.2 mg tablet 0.2 mg PO BID #180 tabs 02/18/22 05/01/22 Rx levothyroxine 112 mcg tablet 112 mcg PO DAILY #30 tabs 02/28/22 05/01/22 Rx (Euthyrox) losartan 100 mg tablet 100 mg PO DAILY #90 tabs 02/28/22 05/01/22 Rx pantoprazole 40 mg tablet,delayed 40 mg PO Q12HR #180 tabs 02/28/22 05/01/22 Rx release atorvastatin 40 mg tablet 40 mg PO DAILY #90 tabs 03/25/22 05/01/22 Rx citalopram 10 mg tablet 10 mg PO DAILY #90 tabs 09/06/22 10/09/22 Rx nifedipine 30 mg tablet,extended 60 mg PO DAILY #180 tabs 03/29/22 05/01/22 Rx release 24 hr Laboratory Tests 05/02/22 05/02/22 05/02/22 04:08 04:08 11:12 WBC 11.8 K/mm3 H K/mm3 (4.5-10.0) RBC 3.15 M/mm3 L M/mm3 (4.2-5.4) Hgb 8.9 g/dL L g/dL (12.0-15.0) Hct 25.2 % L % (37.0-47.0) MCV 80.0 fl fl (80-100) MCH 28.3 pg pg (26-34) MCHC 35.3 g/dl g/dl (32-36) RDW 15.4 % H % (11.5-14.5) Plt Count 305 k/mm3 k/mm3 (150-375) MPV 11.2 fl H fl (7.4-10.4) Immature Gran % (Auto) Not Reportable Neut % (Auto) Not Reportable Lymph % (Auto) Not Reportable Avery % (Auto) Not Reportable Eos % (Auto) Not Reportable Baso % (Auto) Not Reportable Lymph # (Auto) Not Reportable Avery # (Auto) Not Reportable Eos # (Auto) Not Reportable Baso # (Auto) Not Reportable Abs Immat Gran (auto) Not Reportable Absolute Neuts (auto) Not Reportable Absolute Nucleated RBC Not Reportable Total Counted 100 Neutrophils % (Manual) 65 % % (46-73) Band Neutrophils % 26 % H % (0-6) Lymphocytes % (Manual) 4.0 % L % (18-44) Metamyelocytes % 5 % % Nucleated RBC % Not Reportable Abs Neuts (Manual) 10.73 K/mm3 H K/mm3 (1.7-7.2) Abs Lymphs (Manual) 0.47 K/mm3 L K/mm3 (1.1-4.5) Platelet Estimate Adequate (Adequate) Hypochromasia Poikilocytosis 1+ (NORMAL) Anisocytosis Target Cells Tear Drop Cells Ovalocytes [place] Cells 2+ (NORMAL) Crenated Cell Schistocytes 1+ (NORMAL) PT INR Sodium 140 mmol/L mmol/L (137-145) Potassium 4.3 mmol/L mmol/L (3.4-5.0) Chloride 92 mmol/L L mmol/L (98-107) Carbon Dioxide 29 mmol/L mmol/L (22-30) Anion Gap 19 mmol/L H mmol/L (8-16) BUN 53 mg/dL H D mg/dL (7-17) Creatinine 7.20 mg/dL H mg/dL (0.7-1.0) Estim Creat Clear Calc 5 ml/min
[2022-05-03] MEDS: SODIUM CHLORIDE 0.9% IV 500 ML 10 ML IV CONT (07:26)
[2022-05-03] MEDS: ACETAMINOPHEN 325 MG TABLET 650 MG PO (10:16)
--- NOTE | 2022-05-03 10:58 | PM.IMPN ---
Progress Note: A&P Assessment and Plan (1) Acute hyperkalemia: Code(s): E87.5 - Hyperkalemia Status: Acute Assessment and Plan: hemodialysis (2) Altered mental status: Code(s): R41.82 - Altered mental status, unspecified Status: Acute Assessment and Plan: likely multifactorial with COVID and end-stage renal disease with elevated BUN. Will see how patient does after hemodialysis much improved today. Patient is answering questions appropriately. Still a little groggy. (3) Depression: Code(s): F32.A - Depression, unspecified Status: Acute Assessment and Plan: monitor (4) History of CVA (cerebrovascular accident): Code(s): Z86.73 - Personal history of transient ischemic attack (TIA), and cerebral infarction without residual deficits Status: Acute Assessment and Plan: History of no neurologic deficits (5) ESRD (end stage renal disease): Code(s): N18.6 - End stage renal disease Status: Chronic Assessment and Plan: hemodialysis I think this is likely contributing to her altered mental status. (6) Dyslipidemia: Code(s): E78.5 - Hyperlipidemia, unspecified Status: Acute Assessment and Plan: continue home meds (7) Hypothyroid: Qualifiers: Hypothyroidism type: acquired Qualified Code(s): E03.9 - Hypothyroidism, unspecified Code(s): E03.9 - Hypothyroidism, unspecified Status: Chronic Assessment and Plan: continue home meds (8) Essential (primary) hypertension: Code(s): I10 - Essential (primary) hypertension Status: Chronic Assessment and Plan: monitor blood pressure continue home meds (9) Anemia in chronic renal disease: Qualifiers: Chronic kidney disease stage: unspecified stage Qualified Code(s): N18.9 - Chronic kidney disease, unspecified; D63.1 - Anemia in chronic kidney disease Code(s): N18.9 - Chronic kidney disease, unspecified; D63.1 - Anemia in chronic kidney disease Status: Acute Assessment and Plan: monitor (10) COVID: Code(s): U07.1 - COVID-19 Status: Acute Assessment and Plan: Oxygen if needed. Otherwise she is relatively asymptomatic will hold on any steroids. No remdesivir as patient is end-stage renal disease patient. (11) Aspiration pneumonia: Code(s): J69.0 - Pneumonitis due to inhalation of food and vomit Status: Acute Assessment and Plan: possible aspiration pneumonitis/pneumonia IV Unasyn chest x-ray does show consolidation right middle and lower lobe. Patient is congested in is altered. Risk factors for aspiration. Could also be COVID. Monitor respiratory status (12) Hyperlipidemia: Code(s): E78.5 - Hyperlipidemia, unspecified Status: Acute (13) Acute on chronic blood loss anemia: Code(s): D62 - Acute posthemorrhagic anemia Status: Acute (14) GIB (gastrointestinal bleeding): Code(s): K92.2 - Gastrointestinal hemorrhage, unspecified Status: Acute Assessment and Plan: appreciate GI consult. Status post EGD erosive gastritis note PPI b.i.d. Subjective Date/time seen: 05/03/22 10:58 patient is much more alert. Complaining of severe fatigue. Exam Narrative: General: alert and oriented Psych: appropriate mood nad affect Eyes: PERRLA Neck: Trachea midline, no new lesions Skin: no changes Lungs: CTA Cardiac: Normal S1,S2, no MGR ABD: soft, nd, nt, nbs Ext: no new lesions, no cce Vasc: Pulses intact Objective Data Vital Signs Vital Signs: Vital Signs - 24 hr 05/02/22 12:00 05/02/22 12:00 05/02/22 12:37 Temperature 97.9 F Pulse Rate 96 105 H Respiratory Rate 18 Blood Pressure 158/74 H Pulse Oximetry 96 Oxygen Delivery Room Air Oxygen Flow Rate 05/02/22 14:00 05/02/22 16:00 05/02/22 16:00 Temperature Pulse Rate 98 92 Respira
--- NOTE | 2022-05-03 11:21 | P.PNNP_ITS ---
Progress Note: A&P Assessment and Plan (1) ESRD (end stage renal disease): Code(s): N18.6 - End stage renal disease Status: Chronic Assessment and Plan: * HD on Monday (05/01/22) due to elevated BUN and hyperkalemia * normally does M[facility]F at [facility] * since she requires isolation due to COVID -- HD today and continue T/T/S schedule while hospitalized (2) Acute hyperkalemia: Code(s): E87.5 - Hyperkalemia Status: Acute Assessment and Plan: * resolved * presumably due to missed dialysis treatment * follow trend of repeat K+ (3) Altered mental status: Code(s): R41.82 - Altered mental status, unspecified Status: Acute Assessment and Plan: * significant improvement noted * suspect uremia and possibly infection (COVID + pneumonia) * CT of head negative * ammonia slightly elevated * follow mentation (4) Pneumonia: Code(s): J18.9 - Pneumonia, unspecified organism Status: Acute Assessment and Plan: * suggestive by admission imaging * follow culture datea * on antibiotics (5) Anemia: Code(s): D64.9 - Anemia, unspecified Status: Chronic Assessment and Plan: * drop in H/H noted * noted dark tarry stools * GI following * s/p EGD today -- findings significant for moderate erosive gastritis * Epogen with HD * follow trend of H/H (6) COVID: Code(s): U07.1 - COVID-19 Status: Acute Assessment and Plan: * respiratory status stable * not hypoxic or requiring oxygen * continue supportive therapy Will continue to follow. Subjective Date/time seen: 05/03/22 11:21 Tolerating hemodialysis at the time of my visit (seen on HD at 11:10AM); s/p EGD earlier this AM with findings of erosive gastritis; mentation seems to be doing better in general if not back to baseline. Exam Narrative: General: thin appearing AA female in NAD Heart: normal S1 and S2; no rub Lungs: clear to auscultation Abdomen: soft, nontender, nondistended, positive bowel sounds Extremities: no cyanosis or clubbing; no edema Skin: warm and intact Objective Data Vital Signs Vital Signs: Vital Signs Temp Pulse Resp BP Pulse Ox O2 Del Method O2 Flow Rate 05/03/22 11:15 85 118/67 05/03/22 11:00 82 115/74 05/03/22 10:45 88 123/68 05/03/22 10:30 89 123/67 05/03/22 10:15 89 122/76 05/03/22 10:00 89 107/66 05/03/22 09:45 97 146/77 H 05/03/22 09:40 90 115/67 05/03/22 09:24 36.7 C 99 16 117/73 94 05/03/22 07:55 81 20 88/60 L 94 Nasal Cannula 2 05/03/22 08:05 83 20 91/61 L 93 Room Air 05/03/22 07:45 87 22 H 80/43 L 92 Nasal Cannula 8 05/03/22 07:26 95 22 H 112/68 97 Room Air 05/03/22 06:00 98 05/03/22 06:13 124/78 05/03/22 06:12 78 05/03/22 04:00 36.6 C 94 20 110/63 95 05/03/22 04:00 84 20 97 Room Air 05/03/22 04:00 84 05/03/22 02:00 93 05/03/22 00:00 96 20 97 Room Air 05/03/22 00:00 96 05/02/22 23:58 103 H 05/02/22 23:41 36.6 C 91 20 121/73 97 05/02/22 22:00 91 05/02/22 20:00 87 20 97 Room Air
--- NOTE | 2022-05-03 11:21 | PM.PNNEP ---
Progress Note: A&P Assessment and Plan (1) ESRD (end stage renal disease): Code(s): N18.6 - End stage renal disease Status: Chronic Assessment and Plan: HD on Monday (05/01/22) due to elevated BUN and hyperkalemia normally does M/W/F at [facility] since she requires isolation due to COVID -- HD today and continue T/T/S schedule while hospitalized (2) Acute hyperkalemia: Code(s): E87.5 - Hyperkalemia Status: Acute Assessment and Plan: resolved presumably due to missed dialysis treatment follow trend of repeat K+ (3) Altered mental status: Code(s): R41.82 - Altered mental status, unspecified Status: Acute Assessment and Plan: significant improvement noted suspect uremia and possibly infection (COVID + pneumonia) CT of head negative ammonia slightly elevated follow mentation (4) Pneumonia: Code(s): J18.9 - Pneumonia, unspecified organism Status: Acute Assessment and Plan: suggestive by admission imaging follow culture datea on antibiotics (5) Anemia: Code(s): D64.9 - Anemia, unspecified Status: Chronic Assessment and Plan: drop in H/H noted noted dark tarry stools GI following s/p EGD today -- findings significant for moderate erosive gastritis Epogen with HD follow trend of H/H (6) COVID: Code(s): U07.1 - COVID-19 Status: Acute Assessment and Plan: respiratory status stable not hypoxic or requiring oxygen continue supportive therapy Will continue to follow. Subjective Date/time seen: 05/03/22 11:21 Tolerating hemodialysis at the time of my visit (seen on HD at 11:10AM); s/p EGD earlier this AM with findings of erosive gastritis; mentation seems to be doing better in general if not back to baseline. Exam Narrative: General: thin appearing AA female in NAD Heart: normal S1 and S2; no rub Lungs: clear to auscultation Abdomen: soft, nontender, nondistended, positive bowel sounds Extremities: no cyanosis or clubbing; no edema Skin: warm and intact Objective Data Vital Signs Vital Signs: Vital Signs Temp Pulse Resp BP Pulse Ox O2 Del Method O2 Flow Rate 05/03/22 11:15 85 118/67 05/03/22 11:00 82 115/74 05/03/22 10:45 88 123/68 05/03/22 10:30 89 123/67 05/03/22 10:15 89 122/76 05/03/22 10:00 89 107/66 05/03/22 09:45 97 146/77 H 05/03/22 09:40 90 115/67 05/03/22 09:24 36.7 C 99 16 117/73 94 05/03/22 07:55 81 20 88/60 L 94 Nasal Cannula 2 05/03/22 08:05 83 20 91/61 L 93 Room Air 05/03/22 07:45 87 22 H 80/43 L 92 Nasal Cannula 8 05/03/22 07:26 95 22 H 112/68 97 Room Air 05/03/22 06:00 98 05/03/22 06:13 124/78 05/03/22 06:12 78 05/03/22 04:00 36.6 C 94 20 110/63 95 05/03/22 04:00 84 20 97 Room Air 05/03/22 04:00 84 05/03/22 02:00 93 05/03/22 00:00 96 20 97 Room Air 05/03/22 00:00 96 05/02/22 23:58 103 H 05/02/22 23:41 36.6 C 91 20 121/73 97 05/02/22 22:00 91 05/02/22 20:00 87 20 97 Room Air 05/02/22 20:00 87 05/02/22 20:00 36.6 C 83 20 100/63 97 05/02/22 18:00 87 05/02/22 17:10 36.4 C L 98 18 131/73 93 05/02/22 16:00 92 05/02/22 16:00 Room Air 05/02/22 14:00 98 05/02/22 12:37 36.6 C 105 H 18 158/74 H 96 05/02/22 12:00 96 05/02/22 12:00 Room Air Intake/Output Intake/Output: Intake & Output 04/30/22 05/01/22 05/02/22 05/03/22 23:59 23:59 23:59 23:59 Intake Total 300 100 300 Output Total 500 0 Balance -200 100 300 Meds/Results Medications: Active Medications Generic Name Dose Route Start Last Admin Trade Name Freq PRN Reason Stop Dose Admin Acetaminophen 650 mg 05/01/22 08:42 05/03/22 10:16 Acetaminophen 325 Mg Tablet PO
[2022-05-03] MEDS: ATORVASTATIN 40 MG TABLET PO (13:49)
[2022-05-03] MEDS: LOSARTAN POTASSIUM 100 MG TABLET PO (13:49)
[2022-05-03] MEDS: CALCIUM ACETATE 667 MG TABLET 1334 MG PO ×2 (13:49→17:35)
[2022-05-03] MEDS: cloNIDine HCL 0.2 MG TABLET PO ×2 (13:49→17:35)
[2022-05-03] MEDS: CITALOPRAM HYDROBROMIDE 10 MG TABLET PO (13:49)
[2022-05-03] MEDS: LEVOTHYROXINE SODIUM 112 MCG TABLET PO (13:49)
[2022-05-03] MEDS: NIFEdipine 30 MG TAB.ER.24 60 MG PO (13:50)
[2022-05-03] MEDS: PANTOPRAZOLE SODIUM IV 40 MG VIAL IV PUSH ×2 (13:50→19:58)
[2022-05-03] MEDS: AMPICILLIN SULB 1.5 GM/NS 50ML 1.5 GM/50 ML VIAL IVPB (13:57)
[2022-05-04 03:57] VITALS: BP 109/63; PULSE 89; RESP 18; TEMP 36.9; O2SAT 94
[2022-05-04] MEDS: ACETAMINOPHEN 325 MG TABLET 650 MG PO ×2 (03:58→20:18)
[2022-05-04 05:28] LABS: Basophils Percent Auto 0.1 % (0.2-1.2); Eosinophils Absolute Auto 0.1 K/mm3 (0-0.3); Eosinophils Percent Auto 1.1 % (0-4.4); Hematocrit 22.4 % (37.0-47.0); Immature Granulocyte Absolute 0.07 K/mm3 (0.00-0.031); Immature Granulocyte Percent A 0.8 % (0-0.5); Lymphocytes Absolute Auto 0.59 K/mm3 (0.9-3.2); Lymphocytes Percent Auto 6.6 % (18.3-44.2); Mean Corpuscular HGB Conc 35.7 g/dl (32-36); Mean Corpuscular Hemoglobin 28.4 pg (26-34); Mean Corpuscular Volume 79.4 fl (80-100); Mean Platelet Volume 11.3 fl (7.4-10.4); Monocytes Absolute Auto 0.3 K/mm3 (0.1-0.6); Monocytes Percent Auto 3.7 % (2.6-8.5); Neutrophils Absolute Auto 7.9 K/mm3 (1.3-6.7); Neutrophils Percent Auto 87.7 % (45.5-73.1); Platelet Count Result 285 k/mm3 (150-375); Red Blood Count 2.82 M/mm3 (4.2-5.4); Red Cell Distribution Width 15.4 % (11.5-14.5)
[2022-05-04 05:34] LABS: INR 1.1; Prothrombin Time 14.1 Seconds (11.1-14.7)
[2022-05-04 05:40] LABS: Alanine Aminotransferase 21 U/L (6-35); Anion Gap 12 mmol/L (8-16); Blood Urea Nitrogen 30 mg/dL (7-17); Calcium 7.9 mg/dL (8.4-10.2); Carbon Dioxide 30 mmol/L (22-30); Chloride 94 mmol/L (98-107); Estimated CRCL calculation 8 ml/min; Estimated Glomerular Filt Rate 12; Glucose 151 mg/dL (65-110); Potassium 3.2 mmol/L (3.4-5.0); Sodium 136 mmol/L (137-145)
[2022-05-04] MEDS: LEVOTHYROXINE SODIUM 112 MCG TABLET PO (05:51)
--- NOTE | 2022-05-04 09:05 | WPDANESPN ---
Anes - Prog Note Post-Op Date/Time: 05/04/22 09:05 Cardiovascular status: normal Respiratory status: normal Airway patency: baseline Mental status: other (pt does not recall having procedure) Post-Op hydration status: normal Vital Signs: Last Vital Signs Temp 98.5 F 05/04/22 03:57 Pulse 89 05/04/22 03:57 Resp 18 05/04/22 03:57 BP 109/63 05/04/22 03:57 Pulse Ox 94 05/04/22 03:57 O2 Del Method Room Air 05/03/22 20:00 O2 Flow Rate 2 05/03/22 07:55 Pain Score (VAS): 0 I/O: Intake & Output 05/03/22 05/04/22 05/04/22 23:59 07:59 15:59 Intake Total 450 240 Output Total 0 Balance 450 240 Laboratory Tests 05/04/22 04:47 05/04/22 04:47 05/04/22 05/04/22 05/04/22 04:47 04:47 04:47 WBC 9.0 RBC 2.82 L Hgb 8.0 L Hct 22.4 L MCV 79.4 L MCH 28.4 MCHC 35.7 RDW 15.4 H Plt Count 285 MPV 11.3 H Immature Gran % (Auto) 0.8 H Neut % (Auto) 87.7 H Lymph % (Auto) 6.6 L Hoke % (Auto) 3.7 Eos % (Auto) 1.1 Baso % (Auto) 0.1 L Lymph # (Auto) 0.59 L Hoke # (Auto) 0.3 Eos # (Auto) 0.1 Baso # (Auto) 0.0 Abs Immat Gran (auto) 0.07 H Absolute Neuts (auto) 7.9 H Absolute Nucleated RBC 0.0 Nucleated RBC % 0.0 PT 14.1 INR 1.1 Sodium 136 L Potassium 3.2 L Chloride 94 L Carbon Dioxide 30 Anion Gap 12 BUN 30 H D Creatinine 4.40 H Estim Creat Clear Calc 8 Estimated GFR 12 L Glucose 151 H Calcium 7.9 L ALT 21 Post-procedural complaints: none Patient Feedback: Patient satisfied with anesthetic care.
[2022-05-04] MEDS: NIFEdipine 30 MG TAB.ER.24 60 MG PO (09:20)
[2022-05-04] MEDS: PANTOPRAZOLE SODIUM IV 40 MG VIAL IV PUSH ×2 (09:20→20:18)
[2022-05-04] MEDS: ATORVASTATIN 40 MG TABLET PO (09:20)
[2022-05-04] MEDS: LOSARTAN POTASSIUM 100 MG TABLET PO (09:20)
[2022-05-04] MEDS: CALCIUM ACETATE 667 MG TABLET 1334 MG PO ×3 (09:20→16:52)
[2022-05-04] MEDS: cloNIDine HCL 0.2 MG TABLET PO ×2 (09:21→16:52)
[2022-05-04] MEDS: AMPICILLIN SULB 1.5 GM/NS 50ML 1.5 GM/50 ML VIAL IVPB (09:21)
[2022-05-04] MEDS: CITALOPRAM HYDROBROMIDE 10 MG TABLET PO (09:21)
[2022-05-04 14:05] VITALS: BP 107/60; PULSE 89; RESP 12; TEMP 37.1; O2SAT 100
--- NOTE | 2022-05-04 14:16 | P.PNNP_ITS ---
Progress Note: A&P Assessment and Plan (1) ESRD (end stage renal disease): Code(s): N18.6 - End stage renal disease Status: Chronic Assessment and Plan: * HD on Monday (05/01/22) due to elevated BUN and hyperkalemia * normally does M/W/F at [facility] * plan HD tomorrow and continue T/T/S schedule while hospitalized * this will likely be her temporary schedule on discharge as well (2) Acute hyperkalemia: Code(s): E87.5 - Hyperkalemia Status: Acute Assessment and Plan: * resolved * presumably due to missed dialysis treatment * follow trend of repeat K+ (3) Altered mental status: Code(s): R41.82 - Altered mental status, unspecified Status: Acute Assessment and Plan: * resolved * suspect uremia and possibly infection (COVID + pneumonia) * CT of head negative * ammonia slightly elevated * follow mentation (4) Pneumonia: Code(s): J18.9 - Pneumonia, unspecified organism Status: Acute Assessment and Plan: * suggestive by admission imaging * follow culture datea * on antibiotics (5) Anemia: Code(s): D64.9 - Anemia, unspecified Status: Chronic Assessment and Plan: * drop in H/H noted associated with dominique tarry stools * GI following * s/p EGD (on 05/03/22) -- findings significant for moderate erosive gastritis but no overt bleeding * Epogen with HD * follow trend of H/H (6) COVID: Code(s): U07.1 - COVID-19 Status: Acute Assessment and Plan: * respiratory status stable * not hypoxic or requiring oxygen * continue supportive therapy Will continue to follow. Subjective Date/time seen: 05/04/22 14:16 Tolerated dialysis yesterday without any issues or problems; mentation appears back to baseline; H/H remains relatively stable at this time; no other events overnight or earlier this AM; no apparent distress voiced at the time of my visit. Exam Narrative: General: thin appearing AA female in NAD Heart: normal S1 and S2; no rub Lungs: clear to auscultation Abdomen: soft, nontender, nondistended, positive bowel sounds Extremities: no cyanosis or clubbing; no edema Skin: no rash Objective Data Vital Signs Vital Signs: Vital Signs Temp Pulse Resp BP Pulse Ox O2 Del Method 05/04/22 14:05 37.1 C 89 12 107/60 100 05/04/22 03:57 36.9 C 89 18 109/63 94 05/03/22 20:00 Room Air 05/03/22 20:33 36.8 C 95 16 107/66 94 Intake/Output Intake/Output: Intake & Output 05/01/22 05/02/22 05/03/22 05/04/22 23:59 23:59 23:59 23:59 Intake Total 300 150 800 390 Output Total 500 0 747 0 Balance -200 150 53 390 Meds/Results Medications: Active Medications Generic Name Dose Route Start Last Admin Trade Name Freq PRN Reason Stop Dose Admin Acetaminophen 650 mg 05/01/22 08:42 05/04/22 03:58 Acetaminophen 325 Mg Tablet PO 650 mg Q4-6H PRN Administration Pain (Scale Score 1-3) Albuterol 2 puff 05/01/22 08:42 Albuterol Sulfate (*Sp) Aerosol 1 Puff INHALATION Q4H PRN Shortness Of Breath Or Wheezing Amoxicillin/Clavulanate Macho
--- NOTE | 2022-05-04 14:16 | PM.PNNEP ---
Progress Note: A&P Assessment and Plan (1) ESRD (end stage renal disease): Code(s): N18.6 - End stage renal disease Status: Chronic Assessment and Plan: HD on Monday (05/01/22) due to elevated BUN and hyperkalemia normally does M/W/F at [facility] plan HD tomorrow and continue T/T/S schedule while hospitalized this will likely be her temporary schedule on discharge as well (2) Acute hyperkalemia: Code(s): E87.5 - Hyperkalemia Status: Acute Assessment and Plan: resolved presumably due to missed dialysis treatment follow trend of repeat K+ (3) Altered mental status: Code(s): R41.82 - Altered mental status, unspecified Status: Acute Assessment and Plan: resolved suspect uremia and possibly infection (COVID + pneumonia) CT of head negative ammonia slightly elevated follow mentation (4) Pneumonia: Code(s): J18.9 - Pneumonia, unspecified organism Status: Acute Assessment and Plan: suggestive by admission imaging follow culture datea on antibiotics (5) Anemia: Code(s): D64.9 - Anemia, unspecified Status: Chronic Assessment and Plan: drop in H/H noted associated with dominique tarry stools GI following s/p EGD (on 05/03/22) -- findings significant for moderate erosive gastritis but no overt bleeding Epogen with HD follow trend of H/H (6) COVID: Code(s): U07.1 - COVID-19 Status: Acute Assessment and Plan: respiratory status stable not hypoxic or requiring oxygen continue supportive therapy Will continue to follow. Subjective Date/time seen: 05/04/22 14:16 Tolerated dialysis yesterday without any issues or problems; mentation appears back to baseline; H/H remains relatively stable at this time; no other events overnight or earlier this AM; no apparent distress voiced at the time of my visit. Exam Narrative: General: thin appearing AA female in NAD Heart: normal S1 and S2; no rub Lungs: clear to auscultation Abdomen: soft, nontender, nondistended, positive bowel sounds Extremities: no cyanosis or clubbing; no edema Skin: no rash Objective Data Vital Signs Vital Signs: Vital Signs Temp Pulse Resp BP Pulse Ox O2 Del Method 05/04/22 14:05 37.1 C 89 12 107/60 100 05/04/22 03:57 36.9 C 89 18 109/63 94 05/03/22 20:00 Room Air 05/03/22 20:33 36.8 C 95 16 107/66 94 Intake/Output Intake/Output: Intake & Output 05/01/22 05/02/22 05/03/22 05/04/22 23:59 23:59 23:59 23:59 Intake Total 300 150 800 390 Output Total 500 0 747 0 Balance -200 150 53 390 Meds/Results Medications: Active Medications Generic Name Dose Route Start Last Admin Trade Name Freq PRN Reason Stop Dose Admin Acetaminophen 650 mg 05/01/22 08:42 05/04/22 03:58 Acetaminophen 325 Mg Tablet PO 650 mg Q4-6H PRN Administration Pain (Scale Score 1-3) Albuterol 2 puff 05/01/22 08:42 Albuterol Sulfate (*Sp) Aerosol 1 Puff INHALATION Q4H PRN Shortness Of Breath Or Wheezing Amoxicillin/Clavulanate Potassium 1 tablet 05/05/22 09:00 Amoxicillin/Clavulanate K 500-125 Mg Tab PO Q12HR DALIA Aspirin 81 mg 05/01/22 09:00 05/02/22 09:06 Aspirin 81 Mg Enteric Tablet PO 81 mg QAM DALIA Administration Atorvastatin Calcium 40 mg 05/01/22 09:00 05/04/22 09:20 Atorvastatin 40 Mg Tablet PO 40 mg DAILY DALIA Administration Calcium Acetate 1,334 mg 05/01/22 08:00 05/04/22 16:52 Calcium Acetate 667 Mg Tablet PO 1,334 mg TIDWM DALIA Administration Citalopram Hydrobromide 10 mg 05/01/22 09:00 05/04/22 09:21 Citalopram Hydrobromide 10 Mg Tablet PO 10 mg DAILY DALIA Administration Clonidine HCl 0.2 mg 05/01/22 09:00 05/04/22 16:52 Clonidine Hcl 0.2 Mg Tablet PO 0.2 mg BID DALIA Administration Dextrose 12.5 gm 05/01/22 00:43 Dextrose 50% 25 Gm/50 Ml Syringe IV PUSH PRN P
--- NOTE | 2022-05-04 14:44 | PM.IMPN ---
Progress Note: A&P Assessment and Plan (1) COVID: Code(s): U07.1 - COVID-19 Status: Acute Assessment and Plan: Patient overall asymptomatic from her COVID infection. She is not requiring oxygen. Continue to hold dexamethasone at this time. No remdesivir because of her renal failure. (2) GIB (gastrointestinal bleeding): Code(s): K92.2 - Gastrointestinal hemorrhage, unspecified Status: Acute Assessment and Plan: Patient was noted to have a large amount dark tardy stools consistent with melena. She was started on Protonix IV. GI was consulted. EGD on 05/03/2022 showing gastritis most likely etiology of her GI bleed. Hemoglobin was 11.7 on admission but dropped to the 8-9 range and there has been remains stable. She did not require blood transfusion. Continue Protonix. Aspirin remains on hold. (3) Aspiration pneumonia: Code(s): J69.0 - Pneumonitis due to inhalation of food and vomit Status: Acute Assessment and Plan: Chest x-ray shows airspace disease in the right mid and lower lung zones consistent with pneumonia. White count was 16 K on admission. Is concerned that she may have bacterial pneumonia on top of her COVID. There was also concern aspiration possibly related to her mental status. Speech therapy did a bedside evaluation was recommended pureed level 4 diet with small bites and sips. She was started on Unasyn. White count has normalized. Will adjust diet to correspond with speech therapy evaluation. Continue as speech treat the patient. Changed to Augmentin. (4) Acute hyperkalemia: Code(s): E87.5 - Hyperkalemia Status: Acute Assessment and Plan: Potassium 7.1 on admission. Patient was treated appropriately With improvement. Potassium has dropped to 3.2 today. Will not replace. Adjust hemodialysis treatment per Nephrology. Hyperkalemia has resolved. (5) Altered mental status: Code(s): R41.82 - Altered mental status, unspecified Status: Acute Assessment and Plan: Patient presents with altered mental status. CT the brain showing no acute intracranial abnormalities. Likely multifactorial related to COVID and end-stage renal disease with uremia. BUN down to 30 today. Continue monitor mental status but overall this appears to have resolved. (6) Depression: Code(s): F32.A - Depression, unspecified Status: Acute Assessment and Plan: Depressed mood. Complains of weakness. Continue Celexa. Start PT and OT. (7) History of CVA (cerebrovascular accident): Code(s): Z86.73 - Personal history of transient ischemic attack (TIA), and cerebral infarction without residual deficits Status: Acute Assessment and Plan: Patient has a history of infarct right frontal lobe right frontal parietal region in Feb 2021. continue Lipitor. Aspirin on hold because of the GI bleed. resume aspirin when able by GI. (8) ESRD (end stage renal disease): Code(s): N18.6 - End stage renal disease Status: Chronic Assessment and Plan: Patient missed last 2 dialysis treatments prior to admission which contributed to her confusion. Patient normally dialysis sizes on [id number] in [place]. Patient does have a history of missing dialysis treatments. Compliance was encouraged. Continue dialysis here. She may need dialysis today via back on her schedule. Will defer to Nephrology. Appreciate Nephrology input. (9) Essential (primary) hypertension: Code(s): I10 - Essential (primary) hypertension Status: Chronic Assessment and Plan: Patient's blood pressure was reviewed on 05/04 Blood pressure remains well controlled. Will continue current medications. (10) Acute on chronic blood loss anemia: Code(s): D62 - Acute posthemorrhagic anemia Status: Acute Assessment and Plan: Patient with acute blood
--- NOTE | 2022-05-04 16:24 | WPDGIPROGNO ---
Progress Note: A&P Assessment and Plan (1) Erosive gastritis: Code(s): K29.60 - Other gastritis without bleeding Status: Acute Assessment and Plan: no bleeding continue with ppi bid (2) GIB (gastrointestinal bleeding): Code(s): K92.2 - Gastrointestinal hemorrhage, unspecified Status: Acute Assessment and Plan: resolved (3) Melena: Code(s): K92.1 - Melena Status: Acute Assessment and Plan: resolved (4) Pneumonia: Code(s): J18.9 - Pneumonia, unspecified organism Status: Acute (5) COVID: Code(s): U07.1 - COVID-19 Status: Acute Assessment and Plan: on treatment (6) ESRD (end stage renal disease): Code(s): N18.6 - End stage renal disease Status: Chronic Assessment and Plan: by nephrology Subjective Date/time seen: 05/04/22 16:24 Interval history: egd yesterday showed erosive gastritis but no bleeding, still with reflux symptoms but eating. She is comfortable Review of Systems Review of Systems: All systems reviewed & are unremarkable except as noted in HPI and below Exam Narrative: APPEARANCE: thin Head: Normocephalic and atraumatic. EYES: PERRLA/EOMI, conjunctivae clear NOSE: No nasal drainage EARS: External ear normal in appearance THROAT: Oropharynx is clear. NECK: Supple. No adenopathy, no masses. RESPIRATORY: few rales, no distress CARDIOVASCULAR: Regular rate and rhythm without murmurs. ABDOMINAL: Normoactive bowel sounds. Soft, nondistended. MUSCULOSKELETAL: No edema. NEURO: Normal speech. No focal neurologic deficits. SKIN: Skin is warm and dry. No rashes. PSYCHIATRIC: Normal affect/mood. Objective Data Vital Signs Vital Signs: Vital Signs - 24 hr 05/03/22 20:33 05/03/22 20:00 05/04/22 03:57 Temperature 98.3 F 98.5 F Pulse Rate 95 89 Respiratory Rate 16 18 Blood Pressure 107/66 109/63 Pulse Oximetry 94 94 Oxygen Delivery Room Air 05/04/22 14:05 Temperature 98.7 F Pulse Rate 89 Respiratory Rate 12 Blood Pressure 107/60 Pulse Oximetry 100 Oxygen Delivery Intake/Output Intake/Output: Intake & Output 05/01/22 05/02/22 05/03/22 05/04/22 23:59 23:59 23:59 23:59 Intake Total 300 150 800 390 Output Total 500 0 747 0 Balance -200 150 53 390 Meds/Results Medications: Active Medications Generic Name Dose Route Start Last Admin Trade Name Freq PRN Reason Stop Dose Admin Acetaminophen 650 mg 05/01/22 08:42 05/04/22 03:58 Acetaminophen 325 Mg Tablet PO 650 mg Q4-6H PRN Administration Pain (Scale Score 1-3) Albuterol 2 puff 05/01/22 08:42 Albuterol Sulfate (*Sp) Aerosol 1 Puff INHALATION Q4H PRN Shortness Of Breath Or Wheezing Amoxicillin/Clavulanate Potassium 1 tablet 05/05/22 09:00 Amoxicillin/Clavulanate K 500-125 Mg Tab PO Q12HR DALIA Aspirin 81 mg 05/01/22 09:00 05/02/22 09:06 Aspirin 81 Mg Enteric Tablet PO 81 mg QAM DALIA Administration Atorvastatin Calcium 40 mg 05/01/22 09:00 05/04/22 09:20 Atorvastatin 40 Mg Tablet PO 40 mg DAILY DALIA Administration Calcium Acetate 1,334 mg 05/01/22 08:00 05/04/22 12:31 Calcium Acetate 667 Mg Tablet PO 1,334 mg TIDWM DALIA Administration Citalopram Hydrobromide 10 mg 05/01/22 09:00 05/04/22 09:21 Citalopram Hydrobromide 10 Mg Tablet PO 10 mg DAILY DALIA Administration Clonidine HCl 0.2 mg 05/01/22 09:00 05/04/22 09:21 Clonidine Hcl 0.2 Mg Tablet PO 0.2 mg BID DALIA Administration Dextrose 12.5 gm 05/01/22 00:43 Dextrose 50% 25 Gm/50 Ml Syringe IV PUSH PRN PRN Hypoglycemia Protocol Albumin Human 50 mls @ 999 mls/hr 05/01/22 07:44 Albutein IVPB 05/31/22 07:43 Q10M PRN HYPOTENSION Levothyroxine Sodium 112 mcg 05/01/22 06:30 05/04/22 05:51 Levothyroxine Sodium 112 Mcg Tablet PO 112 mcg DAILY@0630 DALIA Administration Losartan Potassium 100 mg 05/01/22 09:00 05/04
[2022-05-04 20:23] VITALS: BP 111/61; PULSE 90; RESP 18; TEMP 37.1; O2SAT 99
[2022-05-05] VITALS (12 sets, daily range): BP systolic 95–133; BP diastolic 55–68; PULSE 79–97; RESP 16–18; TEMP 36–37.1; O2SAT 94–96
[2022-05-05] MEDS: LEVOTHYROXINE SODIUM 112 MCG TABLET PO (05:34)
[2022-05-05] MEDS: ACETAMINOPHEN 325 MG TABLET 650 MG PO (05:36)
[2022-05-05 06:03] LABS: Hematocrit 22.8 % (37.0-47.0); Hemoglobin 8.1 g/dL (12.0-15.0); Mean Corpuscular HGB Conc 35.5 g/dl (32-36); Mean Corpuscular Hemoglobin 28.3 pg (26-34); Mean Corpuscular Volume 79.7 fl (80-100); Platelet Count Result 262 k/mm3 (150-375); Red Blood Count 2.86 M/mm3 (4.2-5.4); Red Cell Distribution Width 15.4 % (11.5-14.5); White Blood Count 8.5 K/mm3 (4.5-10.0)
[2022-05-05 06:32] LABS: Albumin Level 2.6 g/dL (3.5-5.1); Anion Gap 11 mmol/L (8-16); Blood Urea Nitrogen 46 mg/dL (7-17); Calcium 7.6 mg/dL (8.4-10.2); Carbon Dioxide 27 mmol/L (22-30); Chloride 94 mmol/L (98-107); Estimated CRCL calculation 6 ml/min; Estimated Glomerular Filt Rate 9; Glucose 107 mg/dL (65-110); Phosphorus 2.4 mg/dL (2.5-4.5); Potassium 3.1 mmol/L (3.4-5.0); Sodium 132 mmol/L (137-145)
[2022-05-05] MEDS: PANTOPRAZOLE SODIUM IV 40 MG VIAL IV PUSH (08:07)
[2022-05-05] MEDS: CALCIUM ACETATE 667 MG TABLET 1334 MG PO ×2 (08:08→13:45)
[2022-05-05] MEDS: CITALOPRAM HYDROBROMIDE 10 MG TABLET PO (08:09)
[2022-05-05] MEDS: AMOXICILLIN/CLAVULANATE K 500-125 MG TAB 1 TABLET PO (08:09)
[2022-05-05] MEDS: ATORVASTATIN 40 MG TABLET PO (08:09)
--- NOTE | 2022-05-05 10:49 | PCSTNOTE ---
Attempted to do bedside communication evaluation. Patient gone to dialysis, per nurse she will be gone for possibly 4 hours. Nurse stated patient is able to communicate her needs verbally. Patient will be evaluated when available.
--- NOTE | 2022-05-05 11:49 | WPDGIPROGNO ---
Progress Note: A&P Assessment and Plan (1) Erosive gastritis: Code(s): K29.60 - Other gastritis without bleeding Status: Acute Assessment and Plan: no bleeding continue with ppi bid but ok to switch to oral today path showed gastritis, no h pylori will follow from afar (2) GIB (gastrointestinal bleeding): Code(s): K92.2 - Gastrointestinal hemorrhage, unspecified Status: Acute Assessment and Plan: resolved (3) Melena: Code(s): K92.1 - Melena Status: Acute Assessment and Plan: resolved (4) Pneumonia: Code(s): J18.9 - Pneumonia, unspecified organism Status: Acute (5) COVID: Code(s): U07.1 - COVID-19 Status: Acute Assessment and Plan: on treatment (6) ESRD (end stage renal disease): Code(s): N18.6 - End stage renal disease Status: Chronic Assessment and Plan: by nephrology dialysis today Subjective Date/time seen: 05/05/22 11:49 Interval history: she is on dialysis now, still with reflux but eating, c/o pain all over Review of Systems Review of Systems: All systems reviewed & are unremarkable except as noted in HPI and below Exam Narrative: APPEARANCE: thin Head: Normocephalic and atraumatic. EYES: PERRLA/EOMI, conjunctivae clear NOSE: No nasal drainage EARS: External ear normal in appearance THROAT: Oropharynx is clear. NECK: Supple. No adenopathy, no masses. RESPIRATORY: few rales, no distress CARDIOVASCULAR: Regular rate and rhythm without murmurs. ABDOMINAL: Normoactive bowel sounds. Soft, nondistended. MUSCULOSKELETAL: No edema. NEURO: Normal speech. No focal neurologic deficits. SKIN: Skin is warm and dry. No rashes. PSYCHIATRIC: Normal affect/mood. Objective Data Vital Signs Vital Signs: Vital Signs - 24 hr 05/04/22 14:05 05/04/22 20:23 05/04/22 20:00 Temperature 98.7 F 98.8 F Pulse Rate 89 90 Respiratory Rate 12 18 Blood Pressure 107/60 111/61 Pulse Oximetry 100 99 Oxygen Delivery Room Air 05/05/22 04:05 05/05/22 08:16 05/05/22 09:43 Temperature 97.9 F 98.2 F Pulse Rate 84 79 Respiratory Rate 18 16 Blood Pressure 106/59 L 133/64 Pulse Oximetry 94 Oxygen Delivery Room Air 05/05/22 09:54 05/05/22 10:00 05/05/22 08:00 Temperature Pulse Rate 82 85 Respiratory Rate Blood Pressure 102/57 L 95/55 L Pulse Oximetry Oxygen Delivery Room Air 05/05/22 08:00 Temperature Pulse Rate Respiratory Rate Blood Pressure Pulse Oximetry Oxygen Delivery Room Air Intake/Output Intake/Output: Intake & Output 05/02/22 05/03/22 05/04/22 05/05/22 23:59 23:59 23:59 23:59 Intake Total 150 800 870 240 Output Total 0 747 300 Balance 150 53 570 240 Meds/Results Medications: Active Medications Generic Name Dose Route Start Last Admin Trade Name Freq PRN Reason Stop Dose Admin Acetaminophen 650 mg 05/01/22 08:42 05/05/22 05:36 Acetaminophen 325 Mg Tablet PO 650 mg Q4-6H PRN Administration Pain (Scale Score 1-3) Albuterol 2 puff 05/01/22 08:42 Albuterol Sulfate (*Sp) Aerosol 1 Puff INHALATION Q4H PRN Shortness Of Breath Or Wheezing Amoxicillin/Clavulanate Potassium 1 tablet 05/05/22 09:00 05/05/22 08:09 Amoxicillin/Clavulanate K 500-125 Mg Tab PO 1 tablet Q12HR DALIA Administration Aspirin 81 mg 05/01/22 09:00 05/02/22 09:06 Aspirin 81 Mg Enteric Tablet PO 81 mg QAM DALIA Administration Atorvastatin Calcium 40 mg 05/01/22 09:00 05/05/22 08:09 Atorvastatin 40 Mg Tablet PO 40 mg DAILY DALIA Administration Calcium Acetate 1,334 mg 05/01/22 08:00 05/05/22 08:08 Calcium Acetate 667 Mg Tablet PO 1,334 mg TIDWM DALIA Administration Citalopram Hydrobromide 10 mg 05/01/22 09:00 05/05/22 08:09 Citalopram Hydrobromide 10 Mg Tablet PO 10 mg DAILY DALIA Administration Clonidine HCl 0.2 mg 05/01/22 09:00 05/05/22 08:08 Clonidine Hcl 0.2 Mg Tablet PO
[2022-05-05] MEDS: SODIUM CHLORIDE 0.9% IV 1,000 ML 999 ML IV CONT (12:02)
[2022-05-05] MEDS: EPOETIN ALFA-EPBX 10,000 UNITS/ML VIAL 10000 UNITS IV PUSH (12:03)
--- NOTE | 2022-05-05 12:10 | P.PNNP_ITS ---
Progress Note: A&P Assessment and Plan (1) ESRD (end stage renal disease): Code(s): N18.6 - End stage renal disease Status: Chronic Assessment and Plan: * HD on Monday (05/01/22) due to elevated BUN and hyperkalemia * normally does M/W/F at [facility] * HD today and continue T/T/S schedule while hospitalized * this will likely be her temporary schedule on discharge as well (2) Acute hyperkalemia: Code(s): E87.5 - Hyperkalemia Status: Acute Assessment and Plan: * resolved * presumably due to missed dialysis treatment * follow trend of repeat K+ (3) Altered mental status: Code(s): R41.82 - Altered mental status, unspecified Status: Acute Assessment and Plan: * resolved * suspect uremia and possibly infection (COVID + pneumonia) * CT of head negative * ammonia slightly elevated * follow mentation (4) Pneumonia: Code(s): J18.9 - Pneumonia, unspecified organism Status: Acute Assessment and Plan: * suggestive by admission imaging * follow culture data * on antibiotics (5) Anemia: Code(s): D64.9 - Anemia, unspecified Status: Chronic Assessment and Plan: * drop in H/H noted associated with dominique tarry stools * GI following * s/p EGD (on 05/03/22) -- findings significant for moderate erosive gastr itis but no overt bleeding * Epogen with HD * follow trend of H/H (6) COVID: Code(s): U07.1 - COVID-19 Status: Acute Assessment and Plan: * respiratory status stable * not hypoxic or requiring oxygen * continue supportive therapy Will continue to follow. Subjective Date/time seen: 05/05/22 12:10 Tolerating dialysis at the time of my visit (seen on HD at ~ 11:50AM); feels a little short of breath and complaining of pain all over including her abdomen (but seems to be associated with reflux symptoms) and states she needs stronger pain medication; no other acute concerns voiced. Exam Narrative: General: thin appearing AA female in NAD Heart: normal S1 and S2; no rub Lungs: coarse breath sounds Abdomen: soft, nontender, nondistended, positive bowel sounds Extremities: no cyanosis or clubbing; no edema Skin: no nodules Objective Data Vital Signs Vital Signs: Vital Signs Temp Pulse Resp BP Pulse Ox O2 Del Method 05/05/22 12:00 84 112/64 05/05/22 11:30 84 107/67 05/05/22 11:00 85 114/66 05/05/22 10:30 85 103/67 05/05/22 08:00 Room Air 05/05/22 08:00 Room Air 05/05/22 10:00 85 95/55 L 05/05/22 09:54 82 102/57 L 05/05/22 09:43 36.8 C 79 16 133/64 05/05/22 08:16 Room Air 05/05/22 04:05 36.6 C 84 18 106/59 L 94 05/04/22 20:00 Room Air 05/04/22 20:23 37.1 C 90 18 111/61 99 05/04/22 14:05 37.1 C 89 12 107/60 100 Intake/Output Intake/Output: Intake & Output 05/02/22 05/03/22 05/04/22 05/05/22 23:59 23:59 23:59 23:59 Intake Total 150 800 870 240 Output Total 0 747 300 Balance 150 53 570 240 Meds/Results Medications: Active Medications Generic Name Dose Route Start L
--- NOTE | 2022-05-05 12:10 | PM.PNNEP ---
Progress Note: A&P Assessment and Plan (1) ESRD (end stage renal disease): Code(s): N18.6 - End stage renal disease Status: Chronic Assessment and Plan: HD on Monday (05/01/22) due to elevated BUN and hyperkalemia normally does M/W/F at [facility] HD today and continue T/T/S schedule while hospitalized this will likely be her temporary schedule on discharge as well (2) Acute hyperkalemia: Code(s): E87.5 - Hyperkalemia Status: Acute Assessment and Plan: resolved presumably due to missed dialysis treatment follow trend of repeat K+ (3) Altered mental status: Code(s): R41.82 - Altered mental status, unspecified Status: Acute Assessment and Plan: resolved suspect uremia and possibly infection (COVID + pneumonia) CT of head negative ammonia slightly elevated follow mentation (4) Pneumonia: Code(s): J18.9 - Pneumonia, unspecified organism Status: Acute Assessment and Plan: suggestive by admission imaging follow culture data on antibiotics (5) Anemia: Code(s): D64.9 - Anemia, unspecified Status: Chronic Assessment and Plan: drop in H/H noted associated with dominique tarry stools GI following s/p EGD (on 05/03/22) -- findings significant for moderate erosive gastritis but no overt bleeding Epogen with HD follow trend of H/H (6) COVID: Code(s): U07.1 - COVID-19 Status: Acute Assessment and Plan: respiratory status stable not hypoxic or requiring oxygen continue supportive therapy Will continue to follow. Subjective Date/time seen: 05/05/22 12:10 Tolerating dialysis at the time of my visit (seen on HD at ~ 11:50AM); feels a little short of breath and complaining of pain all over including her abdomen (but seems to be associated with reflux symptoms) and states she needs stronger pain medication; no other acute concerns voiced. Exam Narrative: General: thin appearing AA female in NAD Heart: normal S1 and S2; no rub Lungs: coarse breath sounds Abdomen: soft, nontender, nondistended, positive bowel sounds Extremities: no cyanosis or clubbing; no edema Skin: no nodules Objective Data Vital Signs Vital Signs: Vital Signs Temp Pulse Resp BP Pulse Ox O2 Del Method 05/05/22 12:00 84 112/64 05/05/22 11:30 84 107/67 05/05/22 11:00 85 114/66 05/05/22 10:30 85 103/67 05/05/22 08:00 Room Air 05/05/22 08:00 Room Air 05/05/22 10:00 85 95/55 L 05/05/22 09:54 82 102/57 L 05/05/22 09:43 36.8 C 79 16 133/64 05/05/22 08:16 Room Air 05/05/22 04:05 36.6 C 84 18 106/59 L 94 05/04/22 20:00 Room Air 05/04/22 20:23 37.1 C 90 18 111/61 99 05/04/22 14:05 37.1 C 89 12 107/60 100 Intake/Output Intake/Output: Intake & Output 05/02/22 05/03/22 05/04/22 05/05/22 23:59 23:59 23:59 23:59 Intake Total 150 800 870 240 Output Total 0 747 300 Balance 150 53 570 240 Meds/Results Medications: Active Medications Generic Name Dose Route Start Last Admin Trade Name Freq PRN Reason Stop Dose Admin Acetaminophen 650 mg 05/01/22 08:42 05/05/22 05:36 Acetaminophen 325 Mg Tablet PO 650 mg Q4-6H PRN Administration Pain (Scale Score 1-3) Albuterol 2 puff 05/01/22 08:42 Albuterol Sulfate (*Sp) Aerosol 1 Puff INHALATION Q4H PRN Shortness Of Breath Or Wheezing Amoxicillin/Clavulanate Potassium 1 tablet 05/05/22 09:00 05/05/22 08:09 Amoxicillin/Clavulanate K 500-125 Mg Tab PO 1 tablet Q12HR DALIA Administration Aspirin 81 mg 05/01/22 09:00 05/02/22 09:06 Aspirin 81 Mg Enteric Tablet PO 81 mg QAM DALIA Administration Atorvastatin Calcium 40 mg 05/01/22 09:00 05/05/22 08:09 Atorvastatin 40 Mg Tablet PO 40 mg DAILY DALIA Administration Calcium Acetate 1,334 mg 05/01/22 08:00 05/05/22 08:08 Calcium Acetate
[2022-05-05] MEDS: cloNIDine HCL 0.2 MG TABLET PO (13:44)
[2022-05-05] MEDS: NIFEdipine 30 MG TAB.ER.24 60 MG PO (13:45)
[2022-05-05] MEDS: LOSARTAN POTASSIUM 100 MG TABLET PO (13:45)
--- NOTE | 2022-05-05 15:35 | PM.DS ---
DS: Admitting Diagnosis Discharge Date 05/05/22 Admitting Diagnosis Altered mental status DS: Discharge Diagnosis Discharge Diagnosis (1) COVID: Code(s): U07.1 - COVID-19 Status: Acute (2) GIB (gastrointestinal bleeding): Code(s): K92.2 - Gastrointestinal hemorrhage, unspecified Status: Acute (3) Aspiration pneumonia: Code(s): J69.0 - Pneumonitis due to inhalation of food and vomit Status: Acute (4) Acute hyperkalemia: Code(s): E87.5 - Hyperkalemia Status: Acute (5) Altered mental status: Code(s): R41.82 - Altered mental status, unspecified Status: Acute (6) Depression: Code(s): F32.A - Depression, unspecified Status: Acute (7) History of CVA (cerebrovascular accident): Code(s): Z86.73 - Personal history of transient ischemic attack (TIA), and cerebral infarction without residual deficits Status: Acute (8) ESRD (end stage renal disease): Code(s): N18.6 - End stage renal disease Status: Chronic (9) Essential (primary) hypertension: Code(s): I10 - Essential (primary) hypertension Status: Chronic (10) Acute on chronic blood loss anemia: Code(s): D62 - Acute posthemorrhagic anemia Status: Acute DS: Summary Hospital Course Reason for hospitalization: 66yo female with ESRD and HTN here for altered mental status. Please see H&P for details Hospital Course: Patient presents with altered mental status.? CT the brain showing no acute intracranial abnormalities. Likely multifactorial related to COVID and end-stage renal disease with uremia. ?Patient missed last 2 dialysis treatments prior to admission which contributed to her confusion.? Patient normally dialysis sizes [id number] [place].? Patient does have a history of missing dialysis treatments.? Compliance was encouraged.?We continued dialysis here.? Patient was COVID positive but overall asymptomatic from her COVID infection.? She did not require oxygen and she was treated symptomatically. Chest x-ray showed airspace disease in the right mid and lower lung zones consistent with pneumonia.? White count was 16 K on admission.?There was concern that she may have bacterial pneumonia on top of her COVID.? There was also concern aspiration possibly related to her mental status.? Speech therapy did a bedside evaluation was recommended pureed level 4 diet with small bites and sips; diet was adjusted. She was started on Unasyn. ?White count has normalized.?She worked with speech therapy. Patient was noted to have a large amount dark tardy stools consistent with melena.? She was started on Protonix IV.? GI was consulted.? EGD on 05/03/2022 showing gastritis and felt most likely etiology of her GI bleed.? Hemoglobin was 11.7 on admission but dropped to the 8-9 range and there it has been remained stable.? She did not require blood transfusion.? Potassium was 7.1 on admission.? Patient was treated appropriately?with improvement.?[place] related to the fact that she has missed HD treatments. Potassium remained stable the remainder of her hospital course. Dhe overall did well. She worked with PT/OT as well. She was up walking to the BR with a walker. She was able to be discharged home on 05/05/22 Status at Discharge Cognitive/behavioral status at discharge: stable Time Spent with Patient Time attestation: Total time spent providing and/or coordinating discharge services: 34 minutes Time spent: Greater than 30 minutes Exam Narrative: AF 98.2 109/66 81 16 96% RA Gen - NARD sitting up in bed Chest - Right lower lung field inspiratory crackles o/w clear. nml RR CV - RRR S1/S2 Abd - Soft, NT/ND. +BS Ext - No pedal edema. Thrill and bruit to the Left UE Neuro - patient is alert and appropriate Psych - normal mood; happy about being discharged Skin - Warm and dry DS: Data Data Completed and Pending Completed studies dur
== END 2022-05-05 17:42 | disposition home health service (06) | DRG 177 ==
LOC: ANHED 05-01 02:40 → ANHIMU 05-01 02:47 → ANH2MED 05-03 17:49
PROVIDERS: Chiropractor; Internal Medicine Gastroenterology; Internal Medicine Nephrology; Physician Assistant; Admitting Provider Internal Medicine; Emergency Provider Preventive Medicine Aerospace Medicine; PCP Family Medicine; Visit Provider Internal Medicine
PROC: 0DJ08ZZ Inspection of Upper Intestinal Tract, Via Natural or Artificial Opening Endoscopic (ICD-10-PCS; CPT 43235; principal; 2022-05-03 12:30)
DX: U07.1 COVID-19 (principal); J15.9 Unspecified bacterial pneumonia; J69.0 Pneumonitis due to inhalation of food and vomit; N18.6 End stage renal disease; K29.61 Other gastritis with bleeding; I12.0 Hypertensive chronic kidney disease with stage 5 chronic kidney disease or end stage renal disease; D62 Acute posthemorrhagic anemia; D63.1 Anemia in chronic kidney disease; E87.5 Hyperkalemia; K44.9 Diaphragmatic hernia without obstruction or gangrene; K21.9 Gastro-esophageal reflux disease without esophagitis; E78.5 Hyperlipidemia, unspecified; E03.9 Hypothyroidism, unspecified; G47.00 Insomnia, unspecified; F17.210 Nicotine dependence, cigarettes, uncomplicated; F32.A Depression, unspecified; Z90.49 Acquired absence of other specified parts of digestive tract; Z99.2 Dependence on renal dialysis; Z91.15 Patient's noncompliance with renal dialysis; Z90.710 Acquired absence of both cervix and uterus; Z86.73 Personal history of transient ischemic attack (TIA), and cerebral infarction without residual deficits
CPT/HCPCS: 36415; 70450; 71045; 80048; 80053; 80069; 82140; 82274; 82565; 82948; 83605; 83735; 84100; 84443; 84460; 85025; 85027; 85610; 85730; 86706; 87040; 87340; 88305; 92610; 93005; 96361; 96365; 96366; 96367; 96375; 96376; 97161; 97165; 99285; A9270; C9113; C9803; G0257; G0378; J0131; J0295; J0360; J0610; J1815; J1956; J2001; J2060; J2543; J2704; J3370; J7030; J7040; J7120; Q5105; U0003; U0005